=== PATIENT | female | born 1955 | race Caucasian/White ===

== ENCOUNTER 2022-05-12 21:33 | Outpatient (CLI) | payer MEDICARE, BC, SELFPAY | END 2022-05-12 21:34 | disposition home or self-care (01) | LOC: AMB 06-02 14:52 | PROVIDERS: PCP Family Medicine; Visit Provider Emergency Medicine | DX: R53.1 Weakness (principal) | CPT/HCPCS: A0998 ==

== ENCOUNTER 2022-08-26 08:39 | Outpatient (CLI) | payer MEDICARE, BC, SELFPAY | END 2022-08-26 08:40 | disposition home or self-care (01) | LOC: AMB 09-25 14:05 | PROVIDERS: PCP Family Medicine; Visit Provider Family Medicine | DX: R53.1 Weakness (principal) | CPT/HCPCS: A0998 ==

== ENCOUNTER 2022-08-26 13:32 | Outpatient (CLI) | payer MEDICARE, BC, SELFPAY ==
--- NOTE | 2022-08-26 14:00 | CRLHL7_ITS ---
For Patients: As a result of the Century Cures Act, medical imaging exams and procedure reports are released immediately into your electronic medical record. You may view this report before your referring provider. If you have questions, please contact your health care provider. Indication: Hypothyroidism. History of retinal detachment. Technique: CT of the orbits was performed without intravenous contrast. Comparison: None available. Findings: Bilateral scleral buckle. Globes are without evidence of rupture. Thinning of the ocular lenses. The extraocular muscles are symmetric in size without evidence for enlargement. No exophthalmos. Retrobulbar fat is preserved. The orbital garcia appear intact without fracture. Mild paranasal sinus mucosal disease. Trace left mastoid effusion. Impression: 1. Bilateral scleral buckle. 2. Extraocular muscles are symmetric in size without enlargement. 3. Mild paranasal sinus mucosal disease. Please note that all CT scans at this facility use dose modulation, iterative reconstruction, and/or weight-based dosing when appropriate to reduce radiation dose to as low as reasonably achievable. Dictated by Walker Robertson MD @ 08/27/2022 12:34:56 PM (Electronically Signed)
== END 2022-08-26 13:33 | disposition home or self-care (01) ==
LOC: CT 13:35
PROVIDERS: PCP Family Medicine
DX: E03.9 Hypothyroidism, unspecified (principal); H15.89 Other disorders of sclera
CPT/HCPCS: 70480

== ENCOUNTER 2022-11-17 10:12 | Outpatient (CLI) | payer MEDICARE, BC, SELFPAY | END 2022-11-17 10:13 | disposition home or self-care (01) | LOC: AMB 11-18 04:48 | PROVIDERS: PCP Family Medicine; Visit Provider Family Medicine | DX: R41.82 Altered mental status, unspecified (principal) | CPT/HCPCS: A0425; A0427 ==

== ENCOUNTER 2022-11-17 11:17 | Emergency (ER) | payer MEDICARE, BC, SELFPAY ==
[2022-11-17 11:20] VITALS: BP 131/81; PULSE 84; RESP 18; TEMP 36.5; O2SAT 95; BMI 26.6
[2022-11-17 11:29] VITALS: PULSE 68
--- NOTE | 2022-11-17 11:41 | CRLHL7_ITS ---
For Patients: As a result of the Cures Act, medical imaging exams and procedure reports are released immediately into your electronic medical record. You may view this report before your referring provider. If you have questions, please contact your health care provider. INDICATION: Fall. COMPARISON: MRI brain 12/29/2019. TECHNIQUE: CT of the head without IV contrast. Coronal and sagittal reconstructions. FINDINGS: No intracranial hemorrhage, mass effect, or evidence of acute infarct. No midline shift. No abnormal extra-axial fluid collections. Mild generalized cerebral and cerebellar volume loss. Normal caliber ventricular system. Orbits and extraocular muscles are symmetric. Bilateral scleral banding. Trace mucosal thickening in the right maxillary sinus. The visualized paranasal sinuses and mastoid air cells are otherwise clear. No acute fracture identified. Soft tissues are unremarkable. IMPRESSION: No acute intracranial findings. Please note that all CT scans at this facility use dose modulation, iterative reconstruction, and/or weight-based dosing when appropriate to reduce radiation dose to as low as reasonably achievable. Dictated by Hayde Grijalva MD @ 11/17/2022 12:38:35 PM (Electronically Signed)
--- NOTE | 2022-11-17 11:41 | ED.GENADULT ---
HPI - General Adult General Chief complaint: Neuro Symptoms/Altered Deficit Stated complaint: Fall w Altered Time Seen by Provider: 11/17/22 11:29 History of Present Illness HPI narrative: This 67-year-old female was walking her dog outside and tripped and fell. A electrical maintenance engineer saw her and helped her to her feet. There was a report that she seemed to be leaning to the left when she was ambulating. There was also concerned that her voice seemed different. She arrived here by ambulance and has no complaints. She does not complain of any pain. She states that she did not injure herself. She did not hit her head or have loss of consciousness. She is not taking any blood thinners. Related Data Home Medications Medication Instructions Recorded Confirmed zolpidem 12.5 mg tablet,extended mg PO 11/17/22 release,multiphase Allergies Allergy/AdvReac Type Severity Reaction Status Date / Time morphine Allergy Verified 11/17/22 11:26 Penicillins Allergy Verified 11/17/22 11:26 Sulfa (Sulfonamide Allergy Verified 11/17/22 11:26 Antibiotics) Review of Systems Status of ROS: Reports: 10 or more systems reviewed and unremarkable except as noted in History and below Narrative: Constitutional: No fevers, no weight gain or loss. Eyes: No discharge. No vision changes. HENT: No congestion, no sore throat, no ear pain. Cardiovascular: No chest pain, no palpitations. Respiratory: No shortness of breath, no wheezes, no cough. Gastrointestinal: No abdominal pain, no vomiting, no diarrhea. Genitourinary: No dysuria, no hematuria. Musculoskeletal: Normal range of motion. Skin: No rashes, no pruritis. Neurological: No dizziness, weakness, sensory change, speech change. Endo/Heme/Allergies: No bruising or bleeding. No polydipsia. Pysch: no suicidality, no anxiety, no insomnia. All other systems reviewed and are negative. PFSH PFS Social History Smoking Status: Never smoker Do you use any of these nicotine containing products: None How often do you have a drink containing alcohol: never How often do you have six or more drinks on one occasion: Never AUDIT-C Alcohol total score: 0 Non-prescribed substance use: denies use Exam Narrative: Exam Narrative: Constitutional: Well-developed, well-nourished, no acute distress. HEENT: Normocephalic, atraumatic. Neck: Normal range of motion. Nontender. Supple. Heart: Regular. No murmurs. Normal rate. Intact distal pulses. Lungs: Clear to auscultation. No chest discomfort. No wheezes, rhonchi, or rales. Abdomen: Normal bowel sounds. Nontender. No rebound tenderness. Genitalia: Deferred. Back: No midline tenderness. Normal range of motion. Extremities: Normal range of motion. No injury. Skin: Intact. No rash. Warm. No erythema or pallor. Neurologic: No altered sensation. No weakness. Alert and oriented. Tongue is midline. No facial asymmetry. [id number] is normal. No pronator drift. Software Developer strength is equal bilaterally. Heel to finch is normal. Psychiatric: No suicidality. No anxiety or depression. No insomnia. Nursing notes and vitals signs are reviewed. Const: Vital Signs, click to edit/add: Vital Signs - 24 hr 11/17/22 11:20 11/17/22 11:29 Temperature 97.7 F Pulse Rate [Pulse Oximeter] 68 Pulse Rate [Right Pulse Oximeter] 84 Respiratory Rate 18 Blood Pressure [Ri ght Upper Arm] 131/81 Pulse Oximetry 95 Oxygen Delivery Me thod Room Air Course Vital Signs Vital signs: Initial Vital Signs Temperature 97.7 F 11/17/22 11:20 Temperature Source Temporal Artery Scan 11/17/22 11:20 Pulse Rate 84 11/17/22 11:20 Respiratory Rate 18 11/17/22 11:20 Blood Pressure 131/81 11/17/22 11:20 Blood Pressure Mean 97 11/17/22 11:20 Blood Pressure Position Sitting 11/17/22 11:20 Pulse Oximetry 95 11/17/22 11:20 Oxygen Delivery Method 11/17/22 11:20 Vital Signs Temperature 97.7 F 11/17/22 11:20 Pulse Rate 84 11/17/22 11:20 Respiratory Rate 18 11/17/22 11:20 Blood Pressure 131/81 11/17/22 11:20 Pulse Oximetry 95 11/17/22 11:20 Oxygen Delivery Method 11/17/22 11:20 Temperature 97.7 F 11/17/22 11:20 Pulse Rate 68 11/17/22 11:29 Respiratory Rate 18 11/17/22 11:20 Blood Pressure 131/81 11/17/22 11:20 Pulse Oximetry 95 11/17/22 11:20 Oxygen Delivery Method 11/17/22 11:20 Medical Decision Making MDM Narrative Medical decision making narrative: This patient comes in for evaluation of a fall that occurred just prior to arrival. She is not complaining of any symptoms. She has a normal neurologic exam. A CT scan of the head is ordered out of an abundance of caution. This returns with no acute findings. She is okay to be discharged home to continue current plans. At the time of discharge the patient appears safe for outpatient management. The treatment plan is reviewed along with written and verbal return precautions. Reasons to return and the importance of close followup were also reviewed. Imaging Data CT scan - head: Radiologist's impression: FINDINGS: No intracranial hemorrhage, mass effect, or evidence of acute infarct. No midline shift. No abnormal extra-axial fluid collections. Mild generalized cerebral and cerebellar volume loss. Normal caliber ventricular system. Orbits and extraocular muscles are symmetric. Bilateral scleral banding. Trace mucosal thickening in the right maxillary sinus. The visualized paranasal sinuses and mastoid air cells are otherwise clear. No acute fracture identified. Soft tissues are unremarkable. IMPRESSION: No acute intracranial findings. Discharge Plan Discharge Clinical Impression: Fall Patient Disposition: Home, Self-Care Condition: Stable Additional Instructions: Continue current plans. Follow up with MD or return if worsening symptoms happen. Prescriptions: No Action zolpidem 12.5 mg tablet,ext release multiphase PO Label Comments: TAKE 1 TABLET (12.5 MG) BY MOUTH AT BEDTIME NEEDED FOR SLEEP. TEMPORARY SUPPLY UNTIL MAIL ORDER ARRIVES. Follow Up/Referrals: Apryl Fink MD [Primary Care Provider] - Stand Alone Forms: [employer] Info Instructions
[2022-11-17 13:13] VITALS: BP 137/81
[2022-11-17 13:47] VITALS: BP 129/79
== END 2022-11-17 13:49 | disposition home or self-care (01) ==
PROVIDERS: Emergency Provider Emergency Medicine Emergency Medical Services; PCP Family Medicine
DX: R41.82 Altered mental status, unspecified (principal); W01.0XXA Fall on same level from slipping, tripping and stumbling without subsequent striking against object, initial encounter
CPT/HCPCS: 70450; 99283; 99284

== ENCOUNTER 2023-09-14 11:53 | Outpatient (CLI) | payer MEDICARE, BC, SELFPAY | END 2023-09-14 11:54 | disposition home or self-care (01) | LOC: AMB 09-15 12:43 | PROVIDERS: PCP Family Medicine; Visit Provider Family Medicine | DX: R53.1 Weakness (principal) | CPT/HCPCS: A0998 ==

== ENCOUNTER 2023-11-15 14:59 | Outpatient (CLI) | payer MEDICARE, BC, SELFPAY ==
--- OUTSIDE RECORDS SUMMARY | 2023-11-17 14:00 | XMS_ITS | Encounter Summary ---
Author Name Unknown Organization [facility] Address [address] [place] [id number] Care Team Providers Care Hand Cutter Name Role Phone Apryl Fink MD Primary Care Provider Encounter Details Date Type Department Care Team Description 11/16/2012 Orders Only [facility] [address] [place] [address] Mariajose Chavira MD [address] [place] [id number] Social History Tobacco Use Types Packs/Day Years Used Date Smoking Tobacco: Never Assessed Sex and Gender Information Value Date Recorded Sex Assigned at Not on file Gender Identity Not on file Sexual Orientation Not on file documented as of this encounter Plan of Treatment Not on file documented as of this encounter Visit Diagnoses Not on filedocumented in this encounter Care Teams Hand Cutter Relationship Specialty Start Date End Date Apryl Fink MD [address] [facility] [place] [id number] PCP - General 02/12/16 documented as of this encounter
--- OUTSIDE RECORDS SUMMARY | 2023-11-17 14:00 | XMS_ITS | Clinical Summary ---
Author Name Unknown Organization [facility] Address [address] [place] [address] Care Team Providers Care Still Tender Name Role Phone Apryl Fink MD Primary Care Provider Source Comments You are receiving this document as you are listed as the primary care provider,follow-up provider, or the patient has been referred to you for consultation.This is in compliance with the Medicare and[facility] EHR Incentive Program,which states Providers who transition their patient to another setting of careor provider of care or refers their patient to another provider of care shouldprovide summary care record for each transition of care or referral. Trly Uniq Allergies Active Allergy Reactions Criticality Noted Date Comments Cetirizine Fever High 05/15/2020 Hydrochlorothiazide 08/18/2004 PN: LW Reaction: DIZZINESS Morphine Rash 02/21/2015 doesn't work, I'm part of 10% of the population that it doesn't work on Oxycodone does work, but patient doesn't like how they make her feel. Omeprazole Anaphylaxis High 02/12/2016 Other Cough,Chest Pain 01/02/2019 Tirosint Penicillins 11/19/2003 PN: LW Reaction: Rash, Generalized Sulfa Antibiotics Anaphylaxis High 07/17/2013 Sulfites Anaphylaxis High 02/12/2016 Medications Medication Sig Dispensed Refills Start Date End Date Status triamcinolone acetonide (AKA KENALOG) 0.1 % cream Apply 1 Application topically 2 times daily. 80 g 3 07/06/2011 Active pravastatin (PRAVACHOL) 20 MG tablet Take 1 Tablet (20 mg) by mouth daily. 0 02/16/2018 Active meclizine (ANTIVERT) 25 MG tablet Take 1 Tablet (25 mg) by mouth daily as needed. 0 02/16/2018 Active aspirin 81 MG tablet Take 1 Tablet (81 mg) by mouth daily. 0 Active fexofenadine (CHANDAN) 180 MG tablet Take 1 Tablet (180 mg) by mouth daily as needed. 0 Active busPIRone (BUSPAR) 30 MG tabletIndications: Generalized anxiety disorder (HRC) Take 1 Tablet (30 mg) by mouth two times a day. 180 Tablet 3 08/06/2023 08/05/2024 Active zolpidem tartrate (AMBIEN CR) 12.5 MG controlled release tabletIndications: Insomnia, unspecified type Take 1 Tablet (12.5 mg) by mouth at bedtime as needed. for sleep 90 Tablet 1 08/06/2023 Active venlafaxine (EFFEXORXR) 150 MG 24 hour release capsuleIndications :Generalized anxiety disorder (HRC),Major depressive disorder, recurrent episode, in partial remission (HRC) Take 1 Capsule (150 mg) by mouth two times a day. 180 Capsule 3 08/06/2023 Active lamoTRIgine (LAMICTAL) 200 MG tabletIndications: Major depressive disorder, recurrent episode, in partial remission (HRC) Take 2 Tablets (400 mg) by mouth daily at bedtime. 180 Tablet 3 08/06/2023 Active Active Problems Problem Noted Date Diagnosed Date Primary hypothyroidism 12/15/2018 Hyponatremia 12/15/2018 Esophageal stricture 12/15/2018 Spastic quadriparesis, congenital 11/16/2013 Kidney disease, chronic, stage III (GFR 30-59 ml /min) 11/16/2013 Major depressive disorder, r ecurrent episode, in partial remission 06/11/2011 Overview: Major depressive disorder, recurrent episode, in partial or unspecified remission Generalized anxiety disorder 06/11/2011 Essential hypertension 08/17/2007 Overview: Hypertension Hyperlipidemia 08/17/2007 Resolved Problems Problem Noted Date Diagnosed Date Resolved Date Distal radius fracture 11/17/201211/16 Cyst of ovary 09/02/2004 01/16/2006 Overview: LW Onset: [id number] ; Cyst Ovary Immunizations Name Administration Dates Next Due Flu Vac Preserv Free (3+yrs) 08/17/2007 Family History Medical History Relation Name Comments High Blood Pressure Father Relation Name Status Comments Father Social History Tobacco Use Types Packs/Day Years Used Date Smoking Tobacco: Never Smokeless Tobacco: Never Alcohol Use Standard Drinks/Week Comments No 0 (1 standard drink = 0.6 oz pur e alcohol) PHQ-2 Answer Date Recorded PHQ-2 Score 4 08/06/2023 Sex and Gender Information Value Date Recorded Sex Assigned at Not on file Gender Identity Not on file Sexual Orientation Not on file Last Filed Vital Signs Vital Sign Reading Time Taken Comments Blood Pressure 148/103 08/17/2022 11:59 AM CDT Pulse 91 08/17/2022 11:59 AM CDT Temperature 36.7 ??C (98.1 ??F) 11/16/2012 1 1:54 AM CULL GRADER Respiratory Rate 16 11/16/2012 2:32 PM CULL GRADER Oxygen Saturation 94% 11/16/2012 2:32 PM CULL GRADER Inhaled Oxygen Concentration - - Weight 79.7 kg (175 lb 12.8 oz) 022 11:59 AM CDT Height 165.1 cm (5' 5) 08/17/2022 11:5 9 AM CDT Body Mass Index 29.25 08/17/2022 11:59 AM CDT Plan of Treatment Health Maintenance Due Date Last Done Comments Colon Cancer Screening Plan Due 1955 Medicare Annual Wellness Visit 1955 Mammogram 1955 COVID-19 Vaccine (#1) 1955 Zoster/Shingles (1 of 2) 01/28/2006 Cholesterol 07/06/2016 07/06/2011, 07/20, 11/19/2003 Dexa 01/28/2021 Pneumococcal 65+ Yrs (1 - PCV) 01/28/2021 Influenza (#1) 2023 08/06/2021, 06/18, 07/26/2019, Additional history exists DTaP/Tdap/Td (3 - Tdap) 10/26/2029 10/26/2019, 10/08 Hep C Screening (Preventive Services) Completed 08/18/2004 HepA Aged Out No longer eligi ble based on patient's age to complete this topic HepB Aged Out No longer eligi ble based on patient's age to complete this topic Hib Aged Out No longer eligi ble based on patient's age to complete this topic IPV ([place]) Aged Out No longer eligi ble based on patient's age to complete this topic MCV4 Aged Out No longer eligi ble based on patient's age to complete this topic Care Teams Still Tender Relationship Specialty Start Date End Date Apryl Fink MD [address] [place] [id number] PCP - General 02/12/16
--- OUTSIDE RECORDS SUMMARY | 2023-11-17 14:00 | XMS_ITS | Clinical Summary ---
Author Name Unknown Organization [facility] Address [place], [place] [address] Care Team Providers Care Laborer Cutting Tool Name Role Phone Apryl Fink MD Primary Care Provider + Allergies Active Allergy Reactions Criticality Noted Date Comments Cetirizine Fever High 05/15/2020 Rosuvastatin Throat Swelling/Closing High 03/01/2017 Hydromorphone (Bulk) *Unknown 03/01/2017 Doesn't work Egg Derived Vomiting 02/22/2019 Unable to have Flu shot Hydrochlorothiazide Dizziness High 05/31/2009 Hyoscyamine Hypotension High 07/04/2015 Morphine *Unknown 02/21/2015 doesn't work, I'm part of 10% of the population that it doesn't work on Oxycodone does work, but patient doesn't like how they make her feel. Omeprazole Tongue Swelling High 09/16/2015 Unlisted Allergen (Include Detail In Comments) Stomach Upset 01/02/2019 ALL GRAINS Penicillins Rash Low 05/31/2009 Pork Derived (Porcine) Other - Describe In Comment Field 02/22/2019 uknown reaction, had positive allergy test Simvastatin GI Upset Low 05/15/2020 Sulfa (Sulfonamide Antibiotics) Other - Describe In Comment Field 02/21/2015 Low blood pressure, difficulty standing Levothyroxine Chest Pain,Cough 02/22/2019 Tomato (Solanum Lycopersicum) Nausea And Vomiting,Headache High 02/22/2019 Stomach ache Ondansetron Hcl Anaphylaxis High 02/08/2019 Throat closing, difficulty breathing Medications Medication Sig Dispensed Refills Start Date End Date Status lamotrigine (LAMICTAL) 200 mg tablet Take 2 tablets by mouth at bedtime. 0 07/24/2010 Active meclizine (ANTIVERT) 25 mg tablet Take 1 tablet by mouth every 8 hours if needed. 0 11/08/2018 Active zolpidem CR (AMBIEN CR) 6.25 mg Extended-Release tablet Take 6.25 mg by mouth at bedtime. 0 12/15/2018 Active aspirin (ECOTRIN) 81 mg enteric coated tablet Take 81 mg by mouth once daily with lunch. 0 Active Cholecalciferol, Vitamin D3, 2,000 unit tablet Take 2,000 Units by mouth once daily in the afternoon. 0 Active venlafaxine (EFFEXOR XR) 150 mg Extended-Release capsule Take 300 mg by mouth once daily. 0 02/14/2019 Active artificial tears, peg 400-propylene glycol, (SYSTANE) 0.4-0.3 % drop ophthalmic Place 1 Drop into both eyes 2 times daily if needed for Dry Eyes. 0 Active pravastatin (PRAVACHOL) 20 mg tablet Daily At 2:15PM 0 Active acetaminophen (TYLENOL EXTRA STRGTH) 500 mg tablet Take 1,000 mg by mouth every 6 hours if needed. Max acetaminophen dose: 4000mg in 24 hrs. 0 Active busPIRone (BUSPAR) 30 mg tablet Take 30 mg by mouth. 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 CKD (chronic kidney disease) stage 3, GFR 30-59 ml/min 10/31/2013 HTN (hypertension) 10/31/2013 Major depressive disorder, r ecurrent episode, in partial remission 06/11/2011 Overview: Overview: Major depressive disorder, recurrent episode, in partial or unspecified remission Retinal detachment 09/26/2010 Overview: Right eye, surgery 09/24/10, Dr Andrea Schreiber Has history of left retinal detachment 05/11/[address] Schreiber Arthritis Overview: Psoriatic Arthritis, visit with Dr [place] on 10/22/2009, 01/15/10,02/26/10 Hiatal hernia Resolved Problems Problem Noted Date Diagnosed Date Resolved Date Hypoactive thyroid 12/29/2018 9 Detached retina 12/29/2018 12/29/2018 Mixed anxiety depressive disorder 12/29/2018 12/29/2018 Spastic quadriparesis 10/31/20132018 Generalized anxiety disorder 06/11/2011 12/29/2018 Preventive Health Maintainance 10/08/2009 10/31/2013 Overview: Pap smear - had hystectomy Mammogram - ordered 10/08/09 BDS - ordered 10/08/09 Colonoscopy declines for now Pure hypercholesterolemia Depressive disorder, not elsewhere classified 12/29/2018 Unspecified essential hypertension 10/31/2013 Encounters Date Type Department Care Team Description 09/30/2023 1:00 PM CHIEF CATALYST OPERATOR Office Visit [facility] [address] [phone] Rosalva Cohen MD Consult (Hiatal Hernia Consult) 09/30/2023 11:31 AM CHIEF CATALYST OPERATOR - 09/30/2023 11:59 PM CHIEF CATALYST OPERATOR Hospital Encounter [facility] [address] [place] [address] Rosalva Cohen MD Status post hernia repair 09/30/2023 Telephone [facility] [address] [phone] Rosalva Cohen MD RDC Care Coordination 09/30/2023 Travel 08/26/2023 Telephone [facility] [address] [place] [address] Rosalva Cohen MD Reflux (RDC Pre Visit) from Last 3 Months Immunizations Name Administration Dates Next Due Influenza A (H1N1), Inactivated (Age >=3 Years) 10/08/2009 Influenza, IIV3 (Age >=3 years) 10/08/2009 Influenza, IIV4 07/04/2015 Influenza, IIV4 (Age 6-35 Mos) 07/02/2021 Tdap 10/08/2009 Family History Medical History Relation Name Comments Throat cancer Brother Cancer Father pancreatic Diabetes Father Cancer-breast Sister A one side Relation Name Status Comments Brother Alive Father (Age 63) pancreatic cancer Mother Alive Sister A Alive Social History Tobacco Use Types Packs/Day Years Used Date Smoking Tobacco: Never Smokeless Tobacco: Never Tobacco Cessation:Counseling Given: Yes Alcohol Use Standard Drinks/Week Comments No 0 (1 standard drink = 0.6 oz pur e alcohol) 1-2 per year Sex and Gender Information Value Date Recorded Sex Assigned at Not on file Gender Identity Not on file Sexual Orientation Not on file Obstetrics History Para Term AB IAB SAB Ectopic Multiple Livin g Live Births 0 0 0 0 0 0 0 0 0 0 Last Filed Vital Signs Vital Sign Reading Time Taken Comments Blood Pressure 120/70 09/30/2023 1:05 PM CHIEF CATALYST OPERATOR Pulse 87 09/30/2023 1:05 PM CHIEF CATALYST OPERATOR Temperature 36.5 ??C (97.7 ??F) 07/25/2021 6:49 AM CD T Respiratory Rate 16 07/25/2021 6:49 AM CDT Oxygen Saturation 98% 09/30/2023 1:05 PM CHIEF CATALYST OPERATOR Inhaled Oxygen Concentration - - Weight 83.9 kg (185 lb) 09/30/2023 1:05 PM CHIEF CATALYST OPERATOR Height 165.1 cm (5' 5) 09/30/2023 1:05 PM CHIEF CATALYST OPERATOR Body Mass Index 30.79 09/30/2023 1:05 PM CHIEF CATALYST OPERATOR Plan of Treatment Health Maintenance Due Date Last Done Comments Depression screening for age 12+ 1968 Hepatitis C screening for age 18-79 01/28/1974 Colonoscopy through age 75 01/28/2001 Mammogram for age 45-75 01/28/2001 Zoster (shingles) series for age 50+ (1 of 2) 01/28/2006 Lipids for age 45-75 01/16/2016 01/15/2011, 10/07/20 09 Tetanus booster 10/08/2019 10/08/2009 DEXA/DXA scan for age 65+ 01/28/2021 Medicare Wellness for age 65+ 01/28/2021 Pneumococcal series for age 65+ (1 of 1 - PCV) 01/28/2021 COVID-19 vaccine series (3 - 2022- season) 2023 09/18/2021, 11/13/2020 Influenza for age 65+ 06/18/2023 07/04/2015 , 10/08/2009, 10/08/2009 BMI (ht and wt on same day) for age 18+ 09/30/2024 09/30/2023, 02/22/2019, 02/08/2019 Tdap Completed 10/08/2009 Medical Devices Implanted Type Area Seat Nailer Device Identifier Shelf Expiration Date Model / Serial / Lot Sleeve Silcn [id number] - [id number] Implanted:Qty: 1 on 09/24/2010 at [facility] Right: Eye [employer] [id number]# / / [id number] Strip Silcn 1.25x4.0x125 [id number] - [id number] Implanted:Qty: 1 on 09/24/2010 at [facility] Right: Eye [employer] [id number]# / / [id number] - Chasity [id number] Lens Iol - 1 - Lens Iol 21 Tecnis Implanted:Qty: 1 on 07/08/2011 at [facility] Right: Eye [employer] [id number]# / [id number] / Procedures Procedure Name Priority Date/Time Associated Diagnosis Comments XR ESOPHAGUS MADAY 09/30/2023 12:34 PM CHIEF CATALYST OPERATOR Status post hernia repair from Last 3 Months Results * XR ESOPHAGUS (09/30/2023 12:34 PM CHIEF CATALYST OPERATOR) Anatomical Region Laterality Modality Esophagus Digital Radiogra phy 09/30/2023 2:55 PM CHIEF CATALYST OPERATOR Narrative 09/30/2023 2:55 PM CHIEF CATALYST OPERATOR For Patients: ??As a result of the Cures Act, medical imaging exams and procedure reports are released immediately into your electronic medical record. ??You may view this report before your referring provider. ??If you have questions, please contact your health care provider. INDICATION: History of hernia repair. Reflux type symptoms. TECHNIQUE: Single contrast esophagram. FINDINGS: The patient initially ingested a 13 mm diameter radiodense tablet. This passed to the distal esophagus, and lodged within a small fixed hiatal hernia. Reflux was elicited with the patient in the recumbent position. Toward the end of the examination the radiodense tablet passed in a retrograde fashion within the esophagus. The patient vomited some of the barium toward the end of the examination. Calcified hilar/mediastinal lymph nodes compatible with granulomatous process. 1 minute 6 seconds fluoroscopy time utilized. IMPRESSION : 1. Small fixed esophageal hiatal hernia. 2. Reflux in the recumbent position. 3. Vomiting and retrograde passage of barium and the barium tablet toward the end of the examination. Dictated by Miah Alarcon MD @ Sep 30 2023 ??2:55PM (Electronically Signed) ?? Procedure Note Miah Alarcon MD - 09/30/2023 For Patients: As a result of the Cures Act, medical imagingexams and procedure reports are released immediately into your electronicmedical record. You may view this report before your referring provider.If you have questions, please contact your health care provider. INDICATION: History of hernia repair. Reflux type symptoms. TECHNIQUE: Single contrast esophagram. FINDINGS: The patient initially ingested a 13 mm diameter radiodense tablet. Thispassed to the distal esophagus, and lodged within a small fixed hiatalhernia. Reflux was elicited with the patient in the recumbent position.Toward the end of the examination the radiodense tablet passed in aretrograde fashion within the esophagus. The patient vomited some of thebarium toward the end of the examination. Calcified hilar/mediastinallymph nodes compatible with granulomatous process. 1 minute 6 seconds fluoroscopy time utilized. IMPRESSION : 1. Small fixed esophageal hiatal hernia. 2. Reflux in the recumbent position. 3. Vomiting and retrograde passage of barium and the barium tablet towardthe end of the examination. Dictated by Miah Alarcon MD @ Sep 30 2023 2:55PM (Electronically Signed) Rosalva Cohen MD FLUOROSCOPY from Last 3 Months Advance Directives Latest Code Status on File Code Status Date Activated Date Inactivated Comments Full Code 07/25/2021 6:28 AM 07/25/2021 10:08 PM Question Answer Comments Code Status Discussion: Discussed Code Status History Code Status Date Activated Date Inactivated Comments Full Code 02/28/2019 11:10 AM 03/02/2019 3:26 PM Full Code 12/29/2018 10:35 PM 12/30/2018 6:19 PM Full Code 07/08/2011 8:11 AM 07/08/2011 1:55 PM Full Code 05/27/2011 6:31 AM 05/27/2011 10:47 AM Care Teams Laborer Cutting Tool Relationship Specialty Start Date End Date Apryl Fink MD [address] [facility] [address] PCP - General Family Practice 03/01/17
== END 2023-11-15 15:00 | disposition home or self-care (01) ==
LOC: NFLDREF 11-17 13:57
PROVIDERS: PCP Family Medicine; Referring Provider Family Medicine; Visit Provider Internal Medicine Nephrology
DX: R53.83 Other fatigue (principal); G40.909 Epilepsy, unspecified, not intractable, without status epilepticus; N18.31 Chronic kidney disease, stage 3a
CPT/HCPCS: 80069; 82043; 82570; 82728; 83540; 83550; 84439; 84443; 84550; 87086

== ENCOUNTER 2023-12-02 15:13 | Outpatient (CLI) | payer MEDICARE, BC, SELFPAY ==
--- OUTSIDE RECORDS SUMMARY | 2023-12-02 15:16 | XMS_ITS | Clinical Summary ---
Author Name Unknown Organization [facility] Address [address] [place] [address] Care Team Providers Care Willow Specialists Name Role Phone Apryl Fink MD Primary Care Provider Source Comments You are receiving this document as you are listed as the primary care provider,follow-up provider, or the patient has been referred to you for consultation.This is in compliance with the Medicare and[facility] Cent[facility] EHR Incentive Program,which states Providers who transition their patient to another setting of careor provider of care or refers their patient to another provider of care shouldprovide summary care record for each transition of care or referral. Adeze Allergies Active Allergy Reactions Criticality Noted Date [...] 1 Tablet (20 mg) by mouth daily. 02/16/2018 Active meclizine (ANTIVERT) 25 MG tablet Take 1 Tablet (25 mg) by mouth daily as needed. 02/16/2018 Active aspirin 81 MG tablet Take 1 Tablet (81 mg) by mouth daily. Active fexofenadine (CHANDAN) 180 MG tablet Take 1 Tablet (180 mg) by mouth daily as needed. Active busPIRone (BUSPAR) 30 MG tabletIndications: Generalized [...] of ovary 09/02/2004 01/16/2006 Overview: LW Onset: [id number] ; Cyst Ovary Immunizations Name Administration Dates [...] ??C (98.1 ??F) 11/16/2012 1 1:54 AM CONVERTER OPERATOR Respiratory Rate 16 11/16/2012 2:32 PM CONVERTER OPERATOR Oxygen Saturation 94% 11/16/2012 2:32 PM CONVERTER OPERATOR Inhaled Oxygen Concentration - - Weight 79.7 kg (175 lb 12.8 oz) 022 11:59 AM CDT Height 165.1 cm (5' 5) 08/17/2022 11:5 9 AM CDT Body Mass Index 29.25 08/17/2022 11:59 AM CDT Plan of Treatment Health Maintenance Due Date Last Done Comments Colon Cancer Screening Plan Due 1955 Medicare Annual Wellness Visit 1955 Mammogram 1955 Zoster/Shingles (1 of 2) 01/28/2006 Cholesterol 07/06/2016 07/06/2011, 07/20, 11/19/2003 Dexa 01/28/2021 Pneumococcal 65+ Yrs (1 - PCV) 01/28/2021 COVID-19 Vaccine (4 - 2022- season) 2023 09/18/2021, 12/11/2020, 11/13/2020 Influenza (#1) 2023 08/06/2021, 06/18, 07/26/2019, Additional [...] on patient's age to complete this topic Procedures Procedure Name Priority Date/Time Associated Diagnosis Comments CHOLESTEROL, TOTAL AND HDL Routine 07/06/2011 1:38 PM CDT Other and unspecified hyperlipidemia (HRC) HEPATITIS C ANTIBODY, WITH REFLEX Routine 08/18/2004 9:55 AM CONVERTER OPERATOR from Last 3 Months or Most Recently Relevant to Health Maintenance Results * (ABNORMAL) Cholesterol, Total and HDL (07/06/2011 1:38 PM CDT) Cholesterol 291(H) 0 - 200 mg/dL HP CONVERSION HDL Cholesterol 118 >39 mg/dL HP CONVERSION Cholesterol/HDL Ratio Screen 2.5 HP CONVERSION 07/06/2011 1:38 PM CDT 07/06/2011 6:15 PM CDT Chas Ivy MD LAB_1 HP CONVERSION * Hepatitis C Antibody, with Reflex (08/18/2004 9:55 AM CONVERTER OPERATOR) Hepatitis C Antibody Non Reac Non Reac HP CONVERSION 08/18/2004 9:55 AM CONVERTER OPERATOR Drew Bill MD LAB_1 HP CONVERSION from Last 3 Months or Most Recently Relevant to Health Maintenance Care Teams Willow Specialists Relationship Specialty Start Date End Date Apryl Fink MD [address] [place] [address] PCP - General 02/12/16
--- OUTSIDE RECORDS SUMMARY | 2023-12-02 15:16 | XMS_ITS | Clinical Summary ---
Author Name Unknown Organization [facility] [facility] Address [place], [place] [address] Care Team Providers Care Plant Accountant Name Role Phone Apryl Fink MD Primary [...] Department Care Team Description 09/30/2023 1:00 PM RESEARCH CHEF Office Visit [facility] [address] [phone] Rosalva Cohen MD Consult (Hiatal Hernia Consult) 09/30/2023 11:31 AM RESEARCH CHEF - 09/30/2023 11:59 PM RESEARCH CHEF Hospital Encounter [facility] [address] [place] [address] Rosalva Cohen MD Status post hernia repair 09/30/2023 Telephone [facility] [address] [phone] Rosalva Cohen MD RDC Care Coordination 09/30/2023 Travel from Last 3 Months Immunizations Name Administration [...] Comments Blood Pressure 120/70 09/30/2023 1:05 PM RESEARCH CHEF Pulse 87 09/30/2023 1:05 PM RESEARCH CHEF Temperature 36.5 ??C (97.7 ??F) 07/25/2021 6:49 AM CD T Respiratory Rate 16 07/25/2021 6:49 AM CDT Oxygen Saturation 98% 09/30/2023 1:05 PM RESEARCH CHEF Inhaled Oxygen Concentration - - Weight 83.9 kg (185 lb) 09/30/2023 1:05 PM RESEARCH CHEF Height 165.1 cm (5' 5) 09/30/2023 1:05 PM RESEARCH CHEF Body Mass Index 30.79 09/30/2023 1:05 PM RESEARCH CHEF Plan of Treatment Health Maintenance Due Date [...] PCV) 01/28/2021 COVID-19 vaccine series (3 - 2023-24 season) 2023 09/18/2021, 11/13/2020 Influenza for age 65+ 06/18/2023 07/04/2015 , 10/08/2009, 10/08/2009 BMI (ht and wt on same day) for age 18+ 09/30/2024 09/30/2023, 02/22/2019, 02/08/2019 Tdap Completed 10/08/2009 Medical Devices Implanted Type Area Excavating Contractor Device Identifier Shelf Expiration Date Model / Serial / Lot Sleeve Silcn [id number] - [id number] Implanted:Qty: 1 on 09/24/2010 at [facility] Right: Eye [employer] [id number]# / / [id number] Strip Silcn 1.25x4.0x125 [id number] - [id number] Implanted:Qty: 1 on 09/24/2010 at [facility] Right: Eye [employer] [id number]# / / [id number] - Chasity [id number] Lens Iol - 1 - Lens Iol 21 Tecnis Implanted:Qty: 1 on 07/08/2011 at [facility] Right: Eye [employer] [id number]# / [id number] / Procedures Procedure Name Priority Date/Time Associated Diagnosis Comments XR ESOPHAGUS MADAY 09/30/2023 12:34 PM RESEARCH CHEF Status post hernia repair from Last 3 Months Results * XR ESOPHAGUS (09/30/2023 12:34 PM RESEARCH CHEF) Anatomical Region Laterality Modality Esophagus Digital Radiogra phy 09/30/2023 2:55 PM RESEARCH CHEF Narrative 09/30/2023 2:55 PM RESEARCH CHEF For Patients: ??As a result of the 21st Century Cures Act, medical imaging exams and procedure [...] 6:31 AM 05/27/2011 10:47 AM Care Teams Plant Accountant Relationship Specialty Start Date End Date Apryl Fink MD [address] [place] [address] PCP - General Family Practice 03/01/17
--- OUTSIDE RECORDS SUMMARY | 2023-12-02 15:16 | XMS_ITS | Encounter Summary ---
Author Name Unknown Organization [facility] Address [address] [place] [address] Care Team Providers Care Senior Editor Name Role Phone Apryl Fink MD Primary Care Provider Encounter Details Date Type Department Care Team (Late st Contact Info) Description 11/16/2012 Orders Only [facility] [address] [place] [address] Mariajose Chavira MD [address] [place] [address] Social History Tobacco Use Types Packs/Day Years Used Date Smoking Tobacco: Never Assessed Sex and Gender Information Value Date Recorded Sex Assigned at Not on file Gender Identity Not on file Sexual Orientation Not on file documented as of this encounter Plan of Treatment Not on file documented as of this encounter Visit Diagnoses Not on filedocumented in this encounter Care Teams Senior Editor Relationship Specialty Start Date End Date Apryl Fink MD [address] [facility] [place] [address] PCP - General 02/12/16 documented as of this encounter
== END 2023-12-02 15:14 | disposition home or self-care (01) ==
PROVIDERS: PCP Family Medicine; Visit Provider Family Medicine
DX: E78.5 Hyperlipidemia, unspecified (principal); E55.9 Vitamin D deficiency, unspecified
CPT/HCPCS: 80061; 82306

== ENCOUNTER 2024-02-10 07:45 | Outpatient (CLI) | payer MEDICARE, BC, SELFPAY ==
--- OUTSIDE RECORDS SUMMARY | 2024-02-21 15:35 | XMS_ITS | Encounter Summary ---
Author Name Unknown Organization [facility] Address [address] [place] [address] Care Team Providers Care Sock Lining Examiner Name Role Phone Apryl Fink MD Primary Care Provider Encounter Details Date Type Department Care Team (Late st Contact Info) Description 11/16/2012 Orders Only [facility] [address] [place] [address] Mariajose Chavira MD [address] [facility] [place] [address] Social History Tobacco Use Types Packs/Day Years Used Date Smoking Tobacco: Never Assessed Sex and Gender Information Value Date Recorded Sex Assigned at Not on file Gender Identity Not on file Sexual Orientation Not on file documented as of this encounter Plan of Treatment Not on file documented as of this encounter Visit Diagnoses Not on filedocumented in this encounter Care Teams Sock Lining Examiner Relationship Specialty Start Date End Date Apryl Fink MD [address] [facility] [place] [address] PCP - General 02/12/16 documented as of this encounter
--- OUTSIDE RECORDS SUMMARY | 2024-02-21 15:35 | XMS_ITS | Clinical Summary ---
Author Name Unknown Organization [facility] Address [place], [place] [address] Care Team Providers Care Manager Commercial Real Estate Name Role Phone Apryl Fink MD Primary [...] by mouth every 8 hours if needed. 11/08/2018 Active zolpidem CR (AMBIEN CR) 6.25 mg Extended-Release tablet Take 6.25 mg by mouth at bedtime. 12/15/2018 Active aspirin (ECOTRIN) 81 mg enteric coated tablet Take 81 mg by mouth once daily with lunch. Active Cholecalciferol, Vitamin D3, 2,000 unit tablet Take 2,000 Units by mouth once daily in the afternoon. Active venlafaxine (EFFEXOR XR) 150 mg Extended-Release capsule Take 300 mg by mouth once daily. 02/14/2019 Active artificial tears, peg 400-propylene glycol, (SYSTANE) 0.4-0.3 % drop ophthalmic Place 1 Drop into both eyes 2 times daily if needed for Dry Eyes. Active pravastatin (PRAVACHOL) 20 mg tablet Daily At 2:15PM Active acetaminophen (TYLENOL EXTRA STRGTH) 500 mg tablet Take 1,000 mg by mouth every 6 hours if needed. Max acetaminophen dose: 4000mg in 24 hrs. Active busPIRone (BUSPAR) 30 mg tablet Take 30 mg by mouth. 08/06/2023 08/05/2024 Ac tive Active Problems Problem [...] elsewhere classified 12/29/2018 Unspecified essential hypertension 10/31/2013 Immunizations Name Administration Dates Next Due Influenza [...] Comments Blood Pressure 120/70 09/30/2023 1:05 PM HAND MITER OPERATOR Pulse 87 09/30/2023 1:05 PM HAND MITER OPERATOR Temperature 36.5 ??C (97.7 ??F) 07/25/2021 6:49 AM CD T Respiratory Rate 16 07/25/2021 6:49 AM CDT Oxygen Saturation 98% 09/30/2023 1:05 PM HAND MITER OPERATOR Inhaled Oxygen Concentration - - Weight 83.9 kg (185 lb) 09/30/2023 1:05 PM HAND MITER OPERATOR Height 165.1 cm (5' 5) 09/30/2023 1:05 PM HAND MITER OPERATOR Body Mass Index 30.79 09/30/2023 1:05 PM HAND MITER OPERATOR Plan of Treatment Health Maintenance Due [...] PCV) 01/28/2021 COVID-19 vaccine series (3 - season) 2023 09/18/2021, 11/13/2020 Influenza for age 65+ 06/18/2024 07/04/2015 , 10/08/2009, 10/08/2009 BMI (ht and wt on same day) for age 18+ 09/30/2024 09/30/2023, 02/22/2019, 02/08/2019 Tdap Completed 10/08/2009 Medical Devices Implanted Type Area Dip Dyer Device Identifier Shelf Expiration Date Model / Serial / Lot Sleeve Silcn [id number] - [id number] Implanted:Qty: 1 on 09/24/2010 at [facility] Right: Eye [employer] [id number]# / / [id number] Strip Silcn 1.25x4.0x125 [id number] - [id number] Implanted:Qty: 1 on 09/24/2010 at [facility] Right: Eye [facility] [employer] Inc [id number]# / / [id number] Log [id number] - Chasity [id number] Lens Iol - 1 - Lens Iol 21 Tecnis Implanted:Qty: 1 on 07/08/2011 at [facility] Right: Eye [employer] [id number]# / [id number] / Procedures Procedure Name Priority Date/Time Associated Diagnosis Comments LIPID PANEL Routine 01/15/2011 7:44 AM CDT Pure hypercholesterolemia from Last 3 Months or Most Recently Relevant to Health Maintenance Results * (ABNORMAL) LIPID PANEL (01/15/2011 7:44 AM CDT) CHOLESTEROL,TOTAL 324(H) 110 - 199 mg/dL [facility] TRIGLYCERIDES 53 40 - 149 mg/dL [facility] HDL CHOLESTEROL 103 >40 mg/dL [facility] CHOL/HDL RATIO 3.15 <4.51 [facility] LDL CHOLESTEROL 210(H) <131 mg/dL [facility] PATIENT STATUS Fasting [facility] Blood specimen (specimen) BLOOD SPECIMEN / Unknown 01/15/2011 7:44 AM CDT 01/15/2011 7:40 AM CDT Anupama Jarquin WILDFIRE PREVENTION SPECIALIST CHEMISTRY [facility] INTERNAL ZIP [id number] [place] [id number] from Last 3 Months or Most Recently Relevant to Health Maintenance Advance Directives * Full Code (Latest Code Status on File) Date Activated Date Inactivated Comments 07/25/2021 6:28 AM 07/25/2021 10:08 PM Question Answer Comments Code Status Discussion: Discussed * Full Code Date Activated Date Inactivated Comments 02/28/2019 11:10 AM 03/02/2019 3:26 PM * Full Code Date Activated Date Inactivated Comments 12/29/2018 10:35 PM 12/30/2018 6:19 PM * Full Code Date Activated Date Inactivated Comments 07/08/2011 8:11 AM 07/08/2011 1:55 PM * Full Code Date Activated Date Inactivated Comments 05/27/2011 6:31 AM 05/27/2011 10:47 AM Care Teams Manager Commercial Real Estate Relationship Specialty Start Date End Date Apryl Fink MD [address] [place] [address] PCP - General Family Practice 03/01/17
--- OUTSIDE RECORDS SUMMARY | 2024-02-21 15:35 | XMS_ITS | Clinical Summary ---
Author Name Unknown Organization [facility] Address [address] [place] [address] Care Team Providers Care Bi Tester Name Role Phone Apryl Fink MD Primary Care Provider Source Comments You are receiving this document as you are listed as the primary care provider,follow-up provider, or the patient has been referred to you for consultation.This is in compliance with the Medicare and[facility] EHR Incentive Program,which states Providers who transition their patient to another setting of careor provider of care or refers their patient to another provider of care shouldprovide summary care record for each transition of care or referral. [facility]SI MET-TECH Allergies Active Allergy Reactions Criticality Noted Date [...] (20 mg) by mouth daily. 02/16/2018 Active aspirin 81 MG tablet Take 1 Tablet (81 mg) by mouth daily. Active fexofenadine (CHANDAN) 180 MG tablet Take 1 Tablet (180 mg) by mouth daily as needed. Active busPIRone (BUSPAR) 30 MG tabletIndications: Generalized anxiety disorder (HRC) Take 1 Tablet (30 mg) by mouth two times a day. 180 Tablet 3 08/06/2023 08/05/2024 Active venlafaxine (EFFEXORXR) 150 MG 24 hour release capsuleIndications :Generalized anxiety disorder (HRC),Major depressive disorder, recurrent episode, in partial remission (HRC) Take 1 Capsule (150 mg) by mouth two times a day. 180 Capsule 3 08/06/2023 Active lamoTRIgine (LAMICTAL) 200 MG tabletIndications: Major depressive disorder, recurrent episode, in partial remission (HRC) 0.5 tablet in the AM and 1.5 tablet in the evening 12/28/2023 Active zolpidem tartrate (AMBIEN CR) 12.5 MG controlled release tabletIndications: Insomnia, unspecified type Take 1 Tablet (12.5 mg) by mouth at bedtime as needed. for sleep 90 Tablet 1 12/28/2023 Active Active Problems Problem Noted Date Diagnosed [...] of ovary 09/02/2004 01/16/2006 Overview: LW Onset: [id number] ; Cyst Ovary Immunizations Name Administration Dates [...] alcohol) PHQ-2 Answer Date Recorded PHQ-2 Score 2 12/28/2023 Sex and Gender Information Value Date Recorded Sex Assigned at Not on file Gender Identity Not on file Sexual Orientation Not on file Last Filed Vital Signs Vital Sign Reading Time Taken Comments Blood Pressure 148/103 08/17/2022 11:59 AM CDT Pulse 91 08/17/2022 11:59 AM CDT Temperature 36.7 ??C (98.1 ??F) 11/16/2012 1 1:54 AM SR ACCOUNT EXECUTIVE Respiratory Rate 16 11/16/2012 2:32 PM SR ACCOUNT EXECUTIVE Oxygen Saturation 94% 11/16/2012 2:32 PM SR ACCOUNT EXECUTIVE Inhaled Oxygen Concentration - - Weight 79.7 [...] Yrs (1 - PCV) 01/28/2021 COVID-19 Vaccine ( - season) 2023 09/18/2021, 12/11/2020, 11/13/2020 Influenza (Season Ended) 2024 021, 07/02/2021, 07/26/2019, Additional history exists DTaP/Tdap/Td (3 - [...] ANTIBODY, WITH REFLEX Routine 08/18/2004 9:55 AM SR ACCOUNT EXECUTIVE from Last 3 Months or Most Recently [...] C Antibody, with Reflex (08/18/2004 9:55 AM SR ACCOUNT EXECUTIVE) Hepatitis C Antibody Non Reac Non Reac HP CONVERSION 08/18/2004 9:55 AM SR ACCOUNT EXECUTIVE Drew Bill MD LAB_1 HP CONVERSION from Last 3 Months or Most Recently Relevant to Health Maintenance Care Teams Bi Tester Relationship Specialty Start Date End Date Apryl Fink MD [address] [place] [address] PCP - General 02/12/16
== END 2024-02-10 07:46 | disposition home or self-care (01) ==
LOC: AMB 02-21 15:33
PROVIDERS: PCP Family Medicine; Visit Provider Family Medicine
DX: R55 Syncope and collapse (principal)
CPT/HCPCS: A0998

== ENCOUNTER 2024-02-16 17:01 | Outpatient (CLI) | payer MEDICARE, BC, SELFPAY ==
--- OUTSIDE RECORDS SUMMARY | 2024-02-24 11:04 | XMS_ITS | Clinical Summary ---
Author Name Unknown Organization [facility] Address [address] [place] [address] Care Team Providers Care Engraver Steel Plate Name Role Phone Apryl Fink MD Primary Care Provider Source Comments You are receiving this document as you are listed as the primary care provider,follow-up provider, or the patient has been referred to you for consultation.This is in compliance with the Medicare and[facility] Hospital[facility] EHR Incentive Program,which states Providers who transition their patient to another setting of careor provider of care or refers their patient to another provider of care shouldprovide summary care record for each transition of care or referral. [employer] Allergies Active Allergy Reactions Criticality Noted Date [...] of ovary 09/02/2004 01/16/2006 Overview: LW Onset: [id number] ; Cyst Ovary Immunizations Name Administration Dates [...] ??C (98.1 ??F) 11/16/2012 1 1:54 AM TELEPHONE MAINTENANCE MECHANIC Respiratory Rate 16 11/16/2012 2:32 PM TELEPHONE MAINTENANCE MECHANIC Oxygen Saturation 94% 11/16/2012 2:32 PM TELEPHONE MAINTENANCE MECHANIC Inhaled Oxygen Concentration - - Weight 79.7 [...] ANTIBODY, WITH REFLEX Routine 08/18/2004 9:55 AM TELEPHONE MAINTENANCE MECHANIC from Last 3 Months or Most Recently [...] C Antibody, with Reflex (08/18/2004 9:55 AM TELEPHONE MAINTENANCE MECHANIC) Hepatitis C Antibody Non Reac Non Reac HP CONVERSION 08/18/2004 9:55 AM TELEPHONE MAINTENANCE MECHANIC Drew Bill MD LAB_1 HP CONVERSION from Last 3 Months or Most Recently Relevant to Health Maintenance Care Teams Engraver Steel Plate Relationship Specialty Start Date End Date Apryl Fink MD [address] [address] PCP - General 02/12/16
--- OUTSIDE RECORDS SUMMARY | 2024-02-24 11:04 | XMS_ITS | Clinical Summary ---
Author Name Unknown Organization [facility] Address [place], [place] [address] Care Team Providers Care Gis Instructor Name Role Phone Apryl Fink MD Primary [...] Comments Blood Pressure 120/70 09/30/2023 1:05 PM SOFTWARE QUALITY ASSURANCE ANALYST Pulse 87 09/30/2023 1:05 PM SOFTWARE QUALITY ASSURANCE ANALYST Temperature 36.5 ??C (97.7 ??F) 07/25/2021 6:49 AM CD T Respiratory Rate 16 07/25/2021 6:49 AM CDT Oxygen Saturation 98% 09/30/2023 1:05 PM SOFTWARE QUALITY ASSURANCE ANALYST Inhaled Oxygen Concentration - - Weight 83.9 kg (185 lb) 09/30/2023 1:05 PM SOFTWARE QUALITY ASSURANCE ANALYST Height 165.1 cm (5' 5) 09/30/2023 1:05 PM SOFTWARE QUALITY ASSURANCE ANALYST Body Mass Index 30.79 09/30/2023 1:05 PM SOFTWARE QUALITY ASSURANCE ANALYST Plan of Treatment Health Maintenance Due Date [...] Completed 10/08/2009 Medical Devices Implanted Type Area Radiological Equipment Specialist Device Identifier Shelf Expiration Date Model / Serial / Lot Sleeve Silcn [id number] - [id number] Implanted:Qty: 1 on 09/24/2010 at [facility] Right: Eye [employer] S3071# / / [id number] Strip Silcn 1.25x4.0x125 [id number] - [id number] Implanted:Qty: 1 on 09/24/2010 at [facility] Right: Eye [facility] [employer] Inc S2971# / / [id number] Log [id number] - Chasity [id number] Lens Iol - 1 - Lens Iol 21 Tecnis Implanted:Qty: 1 on 07/08/2011 at [facility] Right: Eye [employer] [id number]# / [id number] / Procedures Procedure Name Priority Date/Time Associated Diagnosis Comments LIPID PANEL Routine 01/15/2011 7:44 AM CDT Pure hypercholesterolemia from Last 3 Months or Most Recently Relevant to Health Maintenance Results * (ABNORMAL) LIPID PANEL (01/15/2011 7:44 AM CDT) CHOLESTEROL,TOTAL 324(H) 110 - 199 mg/dL [facility] TRIGLYCERIDES 53 40 - 149 mg/dL [facility] HDL CHOLESTEROL 103 >40 mg/dL [facility] CHOL/HDL RATIO 3.15 <4.51 [facility] LDL CHOLESTEROL 210(H) <131 mg/dL [facility] PATIENT STATUS Fasting [facility] Blood specimen (specimen) BLOOD SPECIMEN / Unknown 01/15/2011 7:44 AM CDT 01/15/2011 7:40 AM CDT Anupama Jarquin ORCHARD SPRAYER CHEMISTRY [facility] INTERNAL ZIP [id number] [place] [address] from Last 3 Months or Most Recently [...] 6:31 AM 05/27/2011 10:47 AM Care Teams Gis Instructor Relationship Specialty Start Date End Date Apryl Fink MD [address] [place] [address] PCP - General Family Practice 03/01/17
--- OUTSIDE RECORDS SUMMARY | 2024-02-24 11:04 | XMS_ITS | Encounter Summary ---
Author Name Unknown Organization [facility] Address [address] [place] [address] Care Team Providers Care Boot Maker Name Role Phone Apryl Fink MD Primary Care Provider Encounter Details Date Type Department Care Team (Late st Contact Info) Description 11/16/2012 Orders Only [facility] [address] [place] [address] Mariajose Chavira MD [address] [facility] [place] [address] Social History Tobacco Use Types Packs/Day Years Used Date Smoking Tobacco: Never Assessed Sex and Gender Information Value Date Recorded Sex Assigned at Not on file Gender Identity Not on file Sexual Orientation Not on file documented as of this encounter Plan of Treatment Not on file documented as of this encounter Visit Diagnoses Not on filedocumented in this encounter Care Teams Boot Maker Relationship Specialty Start Date End Date Apryl Fink MD [address] [place] [address] PCP - General 02/12/16 documented as of this encounter
== END 2024-02-16 17:02 | disposition home or self-care (01) ==
LOC: AMB 02-24 11:03
PROVIDERS: PCP Family Medicine; Visit Provider Family Medicine
DX: R53.1 Weakness (principal)
CPT/HCPCS: A0998

== ENCOUNTER 2024-04-17 08:50 | Outpatient (CLI) | payer MEDICARE, BC, SELFPAY ==
--- OUTSIDE RECORDS SUMMARY | 2024-04-19 12:05 | XMS_ITS | Clinical Summary ---
Author Organization [facility] Address [address] [place] [address] Care Team Providers Care Ice Plant Operator Name Role Phone Apryl Fink MD Primary Care Provider Source Comments You are receiving this document as you are listed as the primary care provider,follow-up provider, or the patient has been referred to you for consultation.This is in compliance with the Medicare and[facility] System[facility] EHR Incentive Program,which states Providers who transition their patient to another setting of careor provider of care or refers their patient to another provider of care shouldprovide summary care record for each transition of care or referral. [employer] Allergies Active Allergy Reactions Criticality Noted Date [...] for sleep 90 Tablet 1 12/28/2023 Active venlafaxine (EFFEXORXR) 37.5 MG 24 hour release capsule Take 1 Capsule (37.5 mg) by mouth daily. + 150 mg capsule in the AM = 187.5 mg in the AM (Also takes 150 mg capsule in the evening) 90 Capsule 1 04/18/2024 04/18/2025 Active Active Problems Problem Noted Date Diagnosed [...] of ovary 09/02/2004 01/16/2006 Overview: LW Onset: [id number] ; Cyst Ovary Immunizations Name Administration Dates [...] PHQ-2 Answer Date Recorded PHQ-2 Score 4 04/18/2024 Sex and Gender Information Value Date Recorded Sex Assigned at Not on file Gender Identity Not on file Sexual Orientation Not on file Last Filed Vital Signs Vital Sign Reading Time Taken Comments Blood Pressure 148/103 08/17/2022 11:59 AM CDT Pulse 91 08/17/2022 11:59 AM CDT Temperature 36.7 ??C (98.1 ??F) 11/16/2012 1 1:54 AM SANITATION LABORER Respiratory Rate 16 11/16/2012 2:32 PM SANITATION LABORER Oxygen Saturation 94% 11/16/2012 2:32 PM SANITATION LABORER Inhaled Oxygen Concentration - - Weight 79.7 [...] season) 2023 09/18/2021, 12/11/2020, 11/13/2020 Influenza (#1) 2024 08/06/2021, 06/18, 07/26/2019, Additional history exists DTaP/Tdap/Td [...] ANTIBODY, WITH REFLEX Routine 08/18/2004 9:55 AM SANITATION LABORER from Last 3 Months or Most Recently [...] C Antibody, with Reflex (08/18/2004 9:55 AM SANITATION LABORER) Hepatitis C Antibody Non Reac Non Reac HP CONVERSION 08/18/2004 9:55 AM SANITATION LABORER Drew Bill MD LAB_1 HP CONVERSION from Last 3 Months or Most Recently Relevant to Health Maintenance Care Teams Ice Plant Operator Relationship Specialty Start Date End Date Apryl Fink MD [address] [address] PCP - General 02/12/16
--- OUTSIDE RECORDS SUMMARY | 2024-04-19 12:05 | XMS_ITS | Clinical Summary ---
Author Organization [facility] Address [place], [place] [address] Care Team Providers Care Chemical Laboratory Tester Name Role Phone Apryl Fink MD [...] Comments Blood Pressure 120/70 09/30/2023 1:05 PM BAR AND FILLER ASSEMBLER Pulse 87 09/30/2023 1:05 PM BAR AND FILLER ASSEMBLER Temperature 36.5 ??C (97.7 ??F) 07/25/2021 6:49 AM CD T Respiratory Rate 16 07/25/2021 6:49 AM CDT Oxygen Saturation 98% 09/30/2023 1:05 PM BAR AND FILLER ASSEMBLER Inhaled Oxygen Concentration - - Weight 83.9 kg (185 lb) 09/30/2023 1:05 PM BAR AND FILLER ASSEMBLER Height 165.1 cm (5' 5) 09/30/2023 1:05 PM BAR AND FILLER ASSEMBLER Body Mass Index 30.79 09/30/2023 1:05 PM BAR AND FILLER ASSEMBLER Plan of Treatment Health Maintenance Due Date [...] Completed 10/08/2009 Medical Devices Implanted Type Area Construction Code Administrator Device Identifier Shelf Expiration Date Model / Serial / Lot Sleeve Silcn [id number] - [id number] Implanted:Qty: 1 on 09/24/2010 at [facility] Right: [facility] S3071# / / [id number] Strip Silcn 1.25x4.0x125 [id number] - [id number] Implanted:Qty: 1 on 09/24/2010 at [facility]: [facility] S2971# / / [id number] Log [id number] - Chasity [id number] Lens Iol - 1 - Lens Iol 21 Tecnis Implanted:Qty: 1 on 07/08/2011 at [facility] Right: Eye [employer] [id number]# / [id number] / Procedures Procedure Name Priority Date/Time Associated Diagnosis Comments LIPID PANEL Routine 01/15/2011 7:44 AM CDT Pure hypercholesterolemia from Last 3 Months or Most Recently Relevant to Health Maintenance Results * (ABNORMAL) LIPID PANEL (01/15/2011 7:44 AM CDT) CHOLESTEROL,TOTAL 324(H) 110 - 199 mg/dL [facility] TRIGLYCERIDES 53 40 - 149 mg/dL [facility] HDL CHOLESTEROL 103 >40 mg/dL [facility] CHOL/HDL RATIO 3.15 <4.51 [facility] LDL CHOLESTEROL 210(H) <131 mg/dL [facility] PATIENT STATUS Fasting [facility] Blood specimen (specimen) BLOOD SPECIMEN / Unknown 01/15/2011 7:44 AM CDT 01/15/2011 7:40 AM CDT Anupama Jarquin NP CHEMISTRY [facility] INTERNAL ZIP [address] [place] [address] from Last 3 Months or Most Recently [...] 6:31 AM 05/27/2011 10:47 AM Care Teams Chemical Laboratory Tester Relationship Specialty Start Date End Date Apryl Fink MD [address] [place] [address] PCP - General Family Practice 03/01/17
--- OUTSIDE RECORDS SUMMARY | 2024-04-19 12:05 | XMS_ITS | Encounter Summary ---
Author Organization [facility] Address [address], [place] [address] Care Team Providers Care Mixing Picker Tender Name Role Phone Apryl Fink MD Primary Care Provider Encounter Details Date Type Department Care Team (Late st Contact Info) Description 11/16/2012 Orders Only [facility] [address] [place] [address] Mariajose Chavira MD [address] [facility] [place] [address] Social History Tobacco Use Types Packs/Day Years Used Date Smoking Tobacco: Never Assessed Sex and Gender Information Value Date Recorded Sex Assigned at Not on file Gender Identity Not on file Sexual Orientation Not on file documented as of this encounter Plan of Treatment Not on file documented as of this encounter Visit Diagnoses Not on filedocumented in this encounter Care Teams Mixing Picker Tender Relationship Specialty Start Date End Date Apryl Fink MD [address] [facility] [place] [address] PCP - General 02/12/16 documented as of this encounter
== END 2024-04-17 08:51 | disposition home or self-care (01) ==
LOC: NFLDREF 04-19 12:03
PROVIDERS: PCP Family Medicine; Referring Provider Family Medicine; Visit Provider Internal Medicine Nephrology
DX: N18.31 Chronic kidney disease, stage 3a (principal); G40.909 Epilepsy, unspecified, not intractable, without status epilepticus; R53.83 Other fatigue; E03.9 Hypothyroidism, unspecified
CPT/HCPCS: 80069; 82043; 82570; 82728; 83540; 83550; 84439; 84443; 84550; 87086

== ENCOUNTER 2024-07-06 12:36 | Outpatient (CLI) | payer MEDICARE, BC, SELFPAY ==
--- OUTSIDE RECORDS SUMMARY | 2024-07-06 12:38 | XMS_ITS | Clinical Summary ---
Author Organization [facility] Address [address] [place] [address] Care Team Providers Care Alodize Machine Operator Name Role Phone Apryl Fink MD Primary Care Provider Source Comments You are receiving this document as you are listed as the primary care provider,follow-up provider, or the patient has been referred to you for consultation.This is in compliance with the Medicare and[facility] EHR Incentive Program,which states Providers who transition their patient to another setting of careor provider of care or refers their patient to another provider of care shouldprovide summary care record for each transition of care or referral. [facility] Allergies Active Allergy Reactions Criticality Noted Date [...] r ecurrent episode, in partial remission 06/11/2011 Overview (06/09/2017): Major depressive disorder, recurrent episode, in partial or unspecified remission Generalized anxiety disorder 06/11/2011 Essential hypertension 08/17/2007 Overview (06/09/2017): Hypertension Hyperlipidemia 08/17/2007 Resolved Problems Problem Noted Date Diagnosed Date Resolved Date Distal radius fracture 11/17/201211/16 Cyst of ovary 09/02/2004 01/16/2006 Overview (06/09/2017): LW Onset: [id number] ; Cyst Ovary Immunizations Name Administration Dates [...] ??C (98.1 ??F) 11/16/2012 1 1:54 AM PUBLISHING SYSTEMS ANALYST Respiratory Rate 16 11/16/2012 2:32 PM PUBLISHING SYSTEMS ANALYST Oxygen Saturation 94% 11/16/2012 2:32 PM PUBLISHING SYSTEMS ANALYST Inhaled Oxygen Concentration - - Weight 79.7 [...] (1 - PCV) 01/28/2021 COVID-19 Vaccine ( season) 2024 09/18/2021, 12/11/2020, 11/13/2020 Influenza (#1) 2024 08/06/2021, 06/18, 07/26/2019, Additional history exists DTaP/Tdap/Td (3 - Tdap) 10/26/2029 10/26/2019, 10/08 RSV (1 - 1-dose 75+ series) 01/28/2031 Hep C Screening (Preventive Services) Completed 08/18/2004 [...] ANTIBODY, WITH REFLEX Routine 08/18/2004 9:55 AM PUBLISHING SYSTEMS ANALYST from Last 3 Months or Most Recently [...] C Antibody, with Reflex (08/18/2004 9:55 AM PUBLISHING SYSTEMS ANALYST) Hepatitis C Antibody Non Reac Non Reac HP CONVERSION 08/18/2004 9:55 AM PUBLISHING SYSTEMS ANALYST Drew Bill MD LAB_1 HP CONVERSION from Last 3 Months or Most Recently Relevant to Health Maintenance Care Teams Alodize Machine Operator Relationship Specialty Start Date End Date Apryl Fink MD [address] [address] PCP - General 02/12/16
--- OUTSIDE RECORDS SUMMARY | 2024-07-06 12:38 | XMS_ITS | Encounter Summary ---
Author Organization [facility] Address [address] [place] [address] Care Team Providers Care Analytical Lab Analyst Name Role Phone Apryl Fink MD Primary Care Provider Encounter Details Date Type Department Care Team (Late st Contact Info) Description 11/16/2012 Orders Only [facility] [address] [place] [address] Mariajose Chavira MD [address] [facility] [place] [place] [address] Social History Tobacco Use Types Packs/Day Years Used Date Smoking Tobacco: Never Assessed Sex and Gender Information Value Date Recorded Sex Assigned at Not on file Gender Identity Not on file Sexual Orientation Not on file documented as of this encounter Plan of Treatment Not on file documented as of this encounter Visit Diagnoses Not on filedocumented in this encounter Care Teams Analytical Lab Analyst Relationship Specialty Start Date End Date Apryl Fink MD [address] [facility] [place] [address] PCP - General 02/12/16 documented as of this encounter
--- OUTSIDE RECORDS SUMMARY | 2024-07-06 12:38 | XMS_ITS | Clinical Summary ---
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 CKD (chronic kidney disease) stage 3, GFR 30-59 ml/min 10/31/2013 HTN (hypertension) 10/31/2013 Major depressive disorder, r ecurrent episode, in partial remission 06/11/2011 Overview (12/29/2018): Overview: Major depressive disorder, recurrent episode, in partial or unspecified remission Retinal detachment 09/26/2010 Overview (05/20/2011): Right eye, surgery 09/24/10, Dr Andrea Schreiber Has history of left retinal detachment 05/11/[address] Schreiber Arthritis Overview (03/04/2010): Psoriatic Arthritis, visit with Dr [place] on 10/22/2009, 01/15/10,02/26/10 Hiatal hernia Resolved Problems Problem Noted Date Diagnosed Date Resolved Date Hypoactive thyroid 12/29/2018 9 Detached retina 12/29/2018 12/29/2018 Mixed anxiety depressive disorder 12/29/2018 12/29/2018 Spastic quadriparesis 10/31/20132018 Generalized anxiety disorder 06/11/2011 12/29/2018 Preventive Health Maintainance 10/08/2009 10/31/2013 Overview (10/08/2009): Pap smear - had hystectomy Mammogram - [...] Comments Blood Pressure 120/70 09/30/2023 1:05 PM REPOSSESSOR Pulse 87 09/30/2023 1:05 PM REPOSSESSOR Temperature 36.5 ??C (97.7 ??F) 07/25/2021 6:49 AM CD T Respiratory Rate 16 07/25/2021 6:49 AM CDT Oxygen Saturation 98% 09/30/2023 1:05 PM REPOSSESSOR Inhaled Oxygen Concentration - - Weight 83.9 kg (185 lb) 09/30/2023 1:05 PM REPOSSESSOR Height 165.1 cm (5' 5) 09/30/2023 1:05 PM REPOSSESSOR Body Mass Index 30.79 09/30/2023 1:05 PM REPOSSESSOR Plan of Treatment Health Maintenance Due Date [...] 1 - PCV) 01/28/2021 COVID-19 vaccine series ( season) 2024 09/18/2021, 11/13/2020 Influenza for age 65+ 06/18/2024 07/04/2015 , 10/08/2009, 10/08/2009 BMI (ht and wt on same day) for age 18+ 09/30/2024 09/30/2023, 02/22/2019, 02/08/2019 Tdap Completed 10/08/2009 Medical Devices Implanted Type Area Outpatient Phlebotomist Device Identifier Shelf Expiration Date Model / Serial / Lot Sleeve Silcn [id number] - [id number] Implanted:Qty: 1 on 09/24/2010 at [facility] Right: Eye [employer] [id number]# / / [id number] Strip Silcn 1.25x4.0x125 [id number] - [id number] Implanted:Qty: 1 on 09/24/2010 at [facility] Right: Eye [employer] [id number]# / / [id number] - Chasity [id number] Lens Iol - 1 - Lens Iol 21 Tecnis Implanted:Qty: 1 on 07/08/2011 at [facility] Right: Eye [employer] [id number]# / [id number] / Procedures Procedure Name Priority Date/Time Associated Diagnosis Comments LIPID PANEL Routine 01/15/2011 7:44 AM CDT Pure hypercholesterolemia from Last 3 Months or Most Recently Relevant to Health Maintenance Results * (ABNORMAL) LIPID PANEL (01/15/2011 7:44 AM CDT) CHOLESTEROL,TOTAL 324(H) 110 - 199 mg/dL [facility] 53 40 - 149 mg/dL [facility] HDL CHOLESTEROL 103 >40 mg/dL [facility] CHOL/HDL RATIO 3.15 <4.51 [facility] LDL CHOLESTEROL 210(H) <131 mg/dL [facility] PATIENT STATUS Fasting [facility] Blood specimen (specimen) BLOOD SPECIMEN / Unknown 01/15/2011 7:44 AM CDT 01/15/2011 7:40 AM CDT Anupama Jarquin CLERICAL SPECIALIST CHEMISTRY [facility] [place]NAL [place]IP [address] [place] [id number] from Last 3 Months or Most Recently [...] 6:31 AM 05/27/2011 10:47 AM Care Teams Tank House Operator Helper Relationship Specialty Start Date End Date Apryl Fink MD [address] [place] [address] PCP - General Family Practice 03/01/17
--- NOTE | 2024-07-06 13:00 | CRLHL7_ITS ---
For Patients: As a result of the Century Cures Act, medical imaging exams and procedure reports are released immediately into your electronic medical record. You may view this report before your referring provider. If you have questions, please contact your health care provider. BILATERAL SCREENING MAMMOGRAM WITH COMPUTER-AIDED DETECTION AND TOMOSYNTHESIS TECHNIQUE: CC and MLO views were obtained. These mammographic images have been obtained using full-field digital technique. These mammographic images were interpreted with the benefit of computer-aided detection. Breast tomosynthesis was used in this interpretation. COMPARISON FILM: 07/28/19, 03/03/18, 11/28/15. FINDINGS: There are scattered areas of fibroglandular density. IMPRESSION: There is no radiographic evidence for malignancy. ASSESSMENT: BI-RADS Category 1: Negative RECOMMENDATION: Routine screening mammogram in 1 year. A lay language report of this examination will be provided to the patient. KENNY DEL CASTILLO M.D. Diagnostic Radiologist [email or web address] TYESHA/fletcher Transcribed: 07/07/2024, 3:[address]/Dictated by: Kenny Del Castillo MD @ 07/07/2024 12:31:00 PM (Electronically Signed)
--- NOTE | 2024-07-06 13:30 | CRLHL7_ITS ---
For Patients: As a result of the Century Cures Act, medical imaging exams and procedure reports are released immediately into your electronic medical record. You may view this report before your referring provider. If you have questions, please contact your health care provider. DXA BONE MINERAL DENSITY STUDY Reason for exam: Screening. Current height (in): 65. Weight (lb): 185. Menopause age: 41. Ethnicity: White. 1. Have you had a previous hip or vertebral fracture? No. 2. Have you had any fractures during your adult life which did not result from significant trauma (e.g., auto accident)? No. 3. Did either of your parents have a hip fracture? Yes. 4. Do you smoke? No. 5. Have you ever taken Glucocorticoids? No. 6. Do you have rheumatoid arthritis? No. 7. Do you have secondary osteoporosis? No. 8. Do you drink 3 or more alcoholic drinks per day? No. 9. Are you being treated for osteoporosis? No. 10. Have you ever taken any of the following medications: Actonel, Evista, Fosamax, Miacalcin, Reclast, Boniva, Forteo, HRT (i.e. estrogen/hormone therapy), Protelos, Prolia, Vitamin D, Calcium, other ??? please specify. ANSWER: Yes, vitamin D. 11. Do you have any of the following medical conditions: Anorexia or bulimia, asthma or emphysema, end stage renal disease, hyperparathyroidism, any seizure disorders, cancer, inflammatory bowel diseases, hysterectomy, other ??? please specify. ANSWER: Yes, seizure disorder, inflammatory bowel disease, hysterectomy. 12. What was your maximum height (inches)? 66. 13. Do you perform weight bearing exercise regularly? No. 14. Do you regularly consume dairy products? Yes. 15. Do you drink caffeinated beverages? Yes. 16. At what age did your period start? 13. 17. Are you premenopausal? No. 18. How many full-term pregnancies have you had? Zero. 19. Have you ever missed your period for more than 6 months in a row (not including or menopause)? No. TECHNIQUE: Bone mineral density study was performed using the [employer]. FINDINGS: The results of the study expressed as bone mineral density (BMD) are as follows: Lumbar spine L1 to L3: BMD: 0.945 g/cm2. T-score: -0.7. Z-score: 1.3. Neck Left: BMD: 0.527 g/cm2. T-score: -2.9. Z-score: -1.2. Right: BMD: 0.718 g/cm2. T-score: -1.2. Z-score: 0.5. Total Left: BMD: 0.767 g/cm2. T-score: -1.4. Z-score: 0.0. Right: BMD: 0.723 g/cm2. T-score: -1.8. Z-score: -0.4. IMPRESSION: Osteoporosis. Kenny Isaac M.D. Diagnostic Radiologist [email or web address] TYESHA/wilfrid / bM/Dictated by: Kenny Isaac MD @ 07/07/2024 12:08:00 PM (Electronically Signed)
== END 2024-07-06 12:37 | disposition home or self-care (01) ==
LOC: MAMMO 12:37
PROVIDERS: PCP Family Medicine; Visit Provider Family Medicine
DX: Z12.31 Encounter for screening mammogram for malignant neoplasm of breast (principal); Z13.820 Encounter for screening for osteoporosis; M81.0 Age-related osteoporosis without current pathological fracture; Z78.0 Asymptomatic menopausal state
CPT/HCPCS: 77063; 77067; 77080

== ENCOUNTER 2025-02-06 11:11 | Outpatient (CLI) | payer MEDICARE, BC, SELFPAY ==
--- NOTE | 2025-02-06 15:19 | PC.SOCIAL ---
Discharge Specialist Consult: SW spoke with patient via phone. Kathy states her main concerns are cost of transportation to doctor appts and cleaning services in her home. Kathy explains that typically she uses the bus through [facility], but this cost is $30 or she uses a taxi which is $20. SW and patient discussed [employer] [employer]. Patient states that she used this during Covid, but there was some stress with them dropping her far from the place she needed to be or the circumstances did not go well. SW explained she would call to clarify curb to curb rides with them and call patient in the morning. SW explained that there unfortunately no other transportation services that SW is aware of that will be lower cost. SW discussed that without being on a waiver program, that all home services will be private pay. Patient inquired about agencies to contact. SW to send a list to patient via mail.
--- NOTE | 2025-02-07 10:43 | PC.SOCIAL ---
Social Work Consult: ELIANE spoke with Kathy and informed that ELIANE spoke with [facility] and learned the following. Kathy could use the dial a ride service to do curb to curb and it's recommended that she call 6 days in advance to be able to get the times and dates she needs. ELIANE explained that while they don't directly to [facility], she would need to go to [facility] Route stop when she's using curb to curb, but they could then bring her directly to the [facility] doors. ELIANE explained that the cost is $2.[address] Kathy had no further questions about this. ELIANE also discussed the home cleaning services. ELIANE explained she would mail the information for the transportation and home cleaning services today. Kathy states no further questions at this time.
== END 2025-02-06 11:12 | disposition home or self-care (01) ==
PROVIDERS: PCP Family Medicine; Visit Provider Family Medicine
DX: E78.5 Hyperlipidemia, unspecified (principal); M81.0 Age-related osteoporosis without current pathological fracture; R73.03 Prediabetes; I12.9 Hypertensive chronic kidney disease with stage 1 through stage 4 chronic kidney disease, or unspecified chronic kidney disease; N18.32 Chronic kidney disease, stage 3b; E03.9 Hypothyroidism, unspecified
CPT/HCPCS: 80053; 80061; 82306; 84439; 84443

== ENCOUNTER 2025-04-19 10:09 | Outpatient (CLI) | payer MEDICARE, BC, SELFPAY | END 2025-04-19 10:10 | disposition home or self-care (01) | LOC: NFLDREF 11:04 | PROVIDERS: PCP Family Medicine; Referring Provider Family Medicine; Visit Provider Internal Medicine Nephrology | DX: I12.9 Hypertensive chronic kidney disease with stage 1 through stage 4 chronic kidney disease, or unspecified chronic kidney disease (principal); N18.32 Chronic kidney disease, stage 3b; M81.0 Age-related osteoporosis without current pathological fracture; E55.9 Vitamin D deficiency, unspecified; E03.9 Hypothyroidism, unspecified; R53.83 Other fatigue | CPT/HCPCS: 80069; 82043; 82570; 82728; 83540; 83550; 83970; 84439; 84443; 84550 ==

== ENCOUNTER 2025-05-12 11:41 | Outpatient (CLI) | payer MEDICARE, BC, SELFPAY | END 2025-05-12 11:42 | disposition home or self-care (01) | LOC: AMB 05-13 10:24 | PROVIDERS: PCP Family Medicine; Visit Provider Internal Medicine | DX: R53.1 Weakness (principal) | CPT/HCPCS: A0998 ==

== ENCOUNTER 2025-07-29 15:55 | Outpatient (CLI) | payer MEDICARE, BC, SELFPAY | END 2025-07-29 15:56 | disposition home or self-care (01) | LOC: AMB 07-31 13:45 | PROVIDERS: PCP Family Medicine; Visit Provider Family Medicine | DX: R53.1 Weakness (principal) | CPT/HCPCS: A0998 ==

== ENCOUNTER 2025-07-29 21:58 | Outpatient (CLI) | payer MEDICARE, BC, SELFPAY | END 2025-07-29 21:59 | disposition home or self-care (01) | LOC: AMB 07-31 15:12 | PROVIDERS: PCP Family Medicine; Visit Provider Family Medicine | DX: S99.912A Unspecified injury of left ankle, initial encounter (principal); W06.XXXA Fall from bed, initial encounter; Y92.032 Bedroom in apartment as the place of occurrence of the external cause | CPT/HCPCS: A0425; A0427 ==

== ENCOUNTER 2025-07-29 22:36 | Inpatient (IN) | payer MEDICARE, BC, SELFPAY ==
--- OUTSIDE RECORDS SUMMARY | 2025-07-29 22:39 | XMS_ITS | Clinical Summary ---
Author Organization [facility] Address [address] [place] [address] Care Team Providers Care Harvester Operator Name Role Phone Apryl Fink MD Primary Care Provider Source Comments You are receiving this document as you are listed as the primary care provider,follow-up provider, or the patient has been referred to you for consultation.This is in compliance with the Medicare and[facility] EHR Incentive Program,which states Providers who transition their patient to another setting of careor provider of care or refers their patient to another provider of care shouldprovide summary care record for each transition of care or referral. [facility] Allergies Active Allergy Reactions Criticality Noted Date [...] High 07/17/2013 Sulfites Anaphylaxis High 02/12/2016 Medications triamcinolone acetonide (AKA KENALOG) 0.1 % cream Apply 1 Application topically 2 times daily. 80 g 3 1 Active aspirin 81 MG tablet Take 1 Tablet (81 mg) by mouth daily. Active fexofenadine (CHANDAN) 180 MG tablet Take 1 Tablet (180 mg) by mouth daily as needed. Active venlafaxine (EFFEXORXR) 75 MG 24 hour release capsule Take 1 Capsule (75 mg) by mouth At Bedtime. + 2 of the 150 mg capsules in the AM = 375 mg total per day 90 Capsule 3 5 12/15/19 26 Active venlafaxine (EFFEXORXR) 150 MG 24 hour release capsuleIndicatio ns:Generalized anxiety disorder (HRC),Major depressive disorder, recurrent, moderate (HRC) Take 2 Capsules (300 mg) by mouth every morning. + takes 75 mg capsule at bedtime = 375 mg total daily 180 Capsule 3 5 Active lamoTRIgine (LAMICTAL) 200 MG tabletIndication s:Major depressive disorder, recurrent, moderate (HRC) 1.5 tablet in the evening 135 Tablet 3 5 Active pravastatin (PRAVACHOL) 40 MG tablet Take 1 Tablet (40 mg) by mouth daily at bedtime. Active zolpidem tartrate (AMBIEN CR) 12.5 MG controlled release tabletIndication s:Insomnia, unspecified type Take 1 Tablet (12.5 mg) by mouth at bedtime as needed. for sleep 90 Tablet 1 5 Active busPIRone (BUSPAR) 30 MG tabletIndication s:Generalized anxiety disorder (HRC) Take 1 Tablet (30 mg) by mouth two times a day. 180 Tablet 3 5 05/15/20 26 Active Active Problems Problem Noted Date Diagnosed [...] ovary 09/02/2004 01/16/2006 Overview (06/09/2017): LW Onset: [id number] ; Cyst Ovary Encounters Date Type Department Care Team Description 05/15/2025 4:00 PM CDT Telemedicine [facility] [address] [place] [address] Opal Justice MD Major depressive disorder, recurrent, moderate (HRC) (Primary Dx); Generalized anxiety disorder (HRC); Insomnia, unspecified type from Last 3 Months Immunizations Immunization Administration Dates Next Due Flu Vac Preserv Free (3+yrs) 08/17/2007 Family History Medical History Relation Name Comments High Blood Pressure Father Relation Name Status Comments Father Social History Tobacco Use Types Packs/Day Years Used Date Smoking Tobacco: Never Smokeless Tobacco: Never Alcohol Use Standard Drinks/Week Comments No 0 (1 standard drink = 0.6 oz pur e alcohol) PHQ-2 Answer Date Recorded PHQ-2 Score 3 12/15/2024 Comments Unknown Sex and Gender Information Value Date Recorded Sex Assigned at Not on file Legal Sex Female 8:20 PM CDT Gender Identity Not on file Sexual Orientation Not on file 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 Not on file Not on file Last Filed Vital Signs Vital Sign Reading Time Taken Comments Blood Pressure 148/103 08/17/2022 11:59 AM CDT Pulse 91 08/17/2022 11:59 AM CDT Temperature 36.7 C (98.1 F) 11/16/2012 11:54 AM LAMINATING MACHINE OFFBEARER Respiratory Rate 16 11/16/2012 2:32 PM LAMINATING MACHINE OFFBEARER Oxygen Saturation 94% 11/16/2012 2:32 PM LAMINATING MACHINE OFFBEARER Inhaled Oxygen Concentration - - Weight 79.7 kg (175 lb 12.8 oz) 022 11:59 AM CDT Height 165.1 cm (5' 5) 08/17/2022 11:5 9 AM CDT Body Mass Index 29.25 08/17/2022 11:59 AM CDT Plan of Treatment Health Maintenance Due Date Last Done Comments Colon Cancer Screening Plan Due 1955 Medicare Annual Wellness Visit 1955 Mammogram 1955 Pneumococcal Vaccine 50+ Yrs (1 of 1 - PCV) 01/28/2006 Zoster/Shingles Vaccine (1 of 2) 01/28/2006 Cholesterol 07/06/2016 07/06/2011, 07/20, 11/19/2003 Dexa 01/28/2021 COVID-19 Vaccine ( - 2024- season) 2025 09/18/2021, 12/11/2020, 11/13/2020 Influenza Vaccine (#1) 2025 , 07/02/2021, 07/26/2019, Additional history exists DTaP/Tdap/Td Vaccine (3 - Tdap) 10/26/2029 10/26/2019, 10/08/2009 RSV Vaccine (1 - 1-dose 75+ series) 01/28/2031 Hep C Screening (Preventive Services) Completed 08/18/2004 HepA Vaccine Aged Out No longer eligi ble based on patient's age to complete this topic HepB Vaccine Aged Out No longer eligi ble based on patient's age to complete this topic Hib Vaccine Aged Out No longer eligi ble based on patient's age to complete this topic IPV (Polio) Vaccine Aged Out No longe r eligible based on patient's age to complete this topic MCV4 Vaccine Aged Out No longer eligi ble based on patient's age to complete this topic Meningococcal B Vaccine Aged Out No l onger eligible based on patient's age to complete this topic Procedures Procedure Name Priority Date/Time Associated Diagnosis Comments CHOLESTEROL, TOTAL AND HDL Routine 07/06/2011 1:38 PM CDT Other and unspecified hyperlipidemia (HRC) HEPATITIS C ANTIBODY, WITH REFLEX (ANTI-HCV) Routine 08/18/2004 9:55 AM LAMINATING MACHINE OFFBEARER from Last 3 Months or Most Recently Relevant to Health Maintenance Results * (ABNORMAL) Cholesterol, Total and HDL (07/06/2011 1:38 PM CDT) Cholesterol 291(H) 0 - 200 mg/dL [facility] HDL Cholesterol 118 >39 mg/dL [facility] Cholesterol/HDL Ratio Screen 2.5 HP CONVERSION 07/06/2011 1:38 PM CDT 07/06/2011 6:15 PM CDT us Chas Ivy MD LAB_1 Final Result HP CONVERSION * Hepatitis C Antibody, with Reflex (08/18/2004 9:55 AM LAMINATING MACHINE OFFBEARER) Hepatitis C Antibody Non Reac Non Reac HP CONVERSION 08/18/2004 9:55 AM LAMINATING MACHINE OFFBEARER us Drew Bill MD LAB_1 Final Result HP CONVERSION from Last 3 Months or Most Recently Relevant to Health Maintenance Insurance MEDICARE MANAGED CARE [facility] [place] [employer] [id number] [place] [id number] [id number] [place] [id number] [facility] [employer] [employer] [id number] [place] [id number] Care Teams Harvester Operator Relationship Specialty Start Date End Date Apryl Fink MD [address] [facility] [place] [address] PCP - General 02/12/16
--- OUTSIDE RECORDS SUMMARY | 2025-07-29 22:39 | XMS_ITS | Clinical Summary ---
Author Organization [facility] Address [address] [place] [address] Care Team Providers Care Hiv Counselor Name Role Phone Apryl Fink MD Primary [...] High 02/08/2019 Throat closing, difficulty breathing Medications lamotrigine (LAMICTAL) 200 mg tablet Take 2 tablets by mouth at bedtime. 0 0 Active meclizine (ANTIVERT) 25 mg tablet Take 1 tablet by mouth every 8 hours if needed. 9 Active zolpidem CR (AMBIEN CR) 6.25 mg Extended-Relea se tablet Take 6.25 mg by mouth at bedtime. 9 Active aspirin (ECOTRIN) 81 mg enteric coated tablet Take 81 mg by mouth once daily with lunch. Active Cholecalcifero l, Vitamin D3, 2,000 unit tablet Take 2,000 Units by mouth once daily in the afternoon. Active venlafaxine (EFFEXOR XR) 150 mg Extended-Relea se capsule Take 300 mg by mouth once daily. 9 Active artificial tears, peg 400-propylene glycol, (SYSTANE) 0.4-0.3 % drop ophthalmic Place 1 Drop into both eyes 2 times daily if needed for Dry Eyes. Active pravastatin (PRAVACHOL) 20 mg tablet Daily At 2:15PM Acti ve acetaminophen (TYLENOL EXTRA STRGTH) 500 mg tablet Take 1,000 mg by mouth every 6 hours if needed. Max acetaminophen dose: 4000mg in 24 hrs. 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 Not on file Not on file Obstetrics History Para Term AB IAB SAB Ectopic Multiple Livin g Live Births 0 0 0 0 0 0 0 0 0 0 Last Filed Vital Signs Vital Sign Reading Time Taken Comments Blood Pressure 120/70 09/30/2023 1:05 PM MOTOR COACH TOUR OPERATOR Pulse 87 09/30/2023 1:05 PM MOTOR COACH TOUR OPERATOR Temperature 36.5 C (97.7 F) 07/25/2021 6:49 AM CDT Respiratory Rate 16 07/25/2021 6:49 AM CDT Oxygen Saturation 98% 09/30/2023 1:05 PM MOTOR COACH TOUR OPERATOR Inhaled Oxygen Concentration - - Weight 83.9 kg (185 lb) 09/30/2023 1:05 PM MOTOR COACH TOUR OPERATOR Height 165.1 cm (5' 5) 09/30/2023 1:05 PM MOTOR COACH TOUR OPERATOR Body Mass Index 30.79 09/30/2023 1:05 PM MOTOR COACH TOUR OPERATOR Plan of Treatment Health Maintenance Due Date Last Done Comments Depression screening for age 12+ 1968 Hepatitis C screening for ag e 18-79 01/28/1974 Colonoscopy through age 75 01/28/2001 Mammogram for age 45-75 01/28/2001 Pneumococcal series for age 50+ (1 of 1 - PCV) 01/28/2006 Zoster (shingles) series for age 50+ (1 of 2) 01/28/2006 Lipids for age 45-75 01/16/2016 01/15/2011, 10/07/2009 RSV vaccine for adults or (1 - Risk 60-74 years 1-dose series) 2016 Tetanus booster 10/08/2019 10/08/2009 DEXA/DXA scan for age 65+ 01/28/2021 Medicare Wellness for age 65+ 01/28/2021 BMI (ht and wt on same day) for age 18+ 09/30/2024 09/30/2023, 02/22/2019, 02/08/2019 COVID-19 vaccine series (3 - 2024- season) 2025 09/18/2021, 11/13/2020 Influenza Vaccine (#1) 2025 , 07/04/2015, 10/08/2009 Hepatitis B series for 19+ Aged Out N o longer eligible based on patient's age to complete this topic Medical Devices Implanted Type Area Entry Level Account Executive Device Identifier Shelf Expiration Date Model / Serial / Lot Sleeve Silcn [id number] - [id number] Implanted:Qty: 1 on 09/24/2010 at [facility] Right: Eye [employer] [id number]# / / [id number] Strip Silcn 1.25x4.0x125 [id number] - [id number] Implanted:Qty: 1 on 09/24/2010 at [facility] Right: Eye [employer] [id number]# / / [id number] - Chasity [id number] Lens Iol - 1 - Lens Iol 21 Tecnis Implanted:Qty: 1 on 07/08/2011 at [facility] Right: Eye [employer] [id number]# / [id number] / Procedures Procedure Name Priority Date/Time Associated Diagnosis Comments LIPID PANEL Routine 01/15/2011 7:44 AM CDT Pure hypercholesterolemia from Last 3 Months or Most Recently Relevant to Health Maintenance Results * (ABNORMAL) LIPID PANEL (01/15/2011 7:44 AM CDT) CHOLESTEROL,TOTAL 324(H) 110 - 199 mg/dL [facility] 53 40 - 149 mg/dL [facility] HDL CHOLESTEROL 103 >40 mg/dL [facility] CHOL/HDL RATIO 3.[address] [facility] LDL CHOLESTEROL 210(H) <131 mg/dL [facility] PATIENT STATUS Fasting [facility] Blood specimen (specimen) BLOOD SPECIMEN / Unknown 01/15/2011 7:44 AM CDT 01/15/2011 7:40 AM CDT us Anupama Jarquin TOE STRIPPER CHEMISTRY Final Result [facility] INTERNAL ZIP [id number] [address] [address] from Last 3 Months or Most Recently Relevant to Health Maintenance Insurance [employer] BLUE MR PB ONLY [employer] BLUE HB ONLY MEDICARE PART A HB ONLY MEDICARE PART B HB ONLY Advance Directives * Full Code (Latest Code [...] 6:31 AM 05/27/2011 10:47 AM Care Teams Hiv Counselor Relationship Specialty Start Date End Date Apryl Fink MD [address] [place] [id number] PCP - General Family Practice 03/01/17
--- OUTSIDE RECORDS SUMMARY | 2025-07-29 22:39 | XMS_ITS | Encounter Summary ---
Author Organization [facility] Address [address], [place] [address] Care Team Providers Care Chief Pharmacist Name Role Phone Apryl Fink MD Primary Care Provider Encounter Details Date Type Department Care Team (Late st Contact Info) Description 11/16/2012 Orders Only [facility] [address] [place] [address] Mariajose Chavira MD [address] [place] [address] [place] [address] Social History Tobacco Use Types Packs/Day Years Used Date Smoking Tobacco: Never Assessed Comments Unknown Sex and Gender Information Value Date Recorded Sex Assigned at Not on file Legal Sex Female 8:20 PM CDT Gender Identity Not on file Sexual Orientation Not on file documented as of this encounter Plan of Treatment Not on file documented as of this encounter Visit Diagnoses Not on filedocumented in this encounter Care Teams Chief Pharmacist Relationship Specialty Start Date End Date Apryl Fink MD [address] [facility] [place] [address] PCP - General 02/12/16 documented as of this encounter
[2025-07-29 22:40] VITALS: BP 118/74; PULSE 71; RESP 18; TEMP 35.7; O2SAT 99
--- NOTE | 2025-07-29 22:49 | CRLHL7_ITS ---
For Patients: As a result of the Century Cures Act, medical imaging exams and procedure reports are released immediately into your electronic medical record. You may view this report before your referring provider. If you have questions, please contact your health care provider. INDICATION: Left ankle pain. TECHNIQUE: Left ankle 3 views. COMPARISON: None. FINDINGS: Mildly displaced fracture of the distal fibular metadiaphysis. No dislocation. Mild widening of the medial clear space. Small joint effusion. Soft tissue swelling. IMPRESSION: 1. Mildly displaced distal fibular fracture. 2. Mild widening of the medial clear space. Dictated by Lj Lei MD @ 07/29/2025 11:39:41 PM (Electronically Signed)
--- NOTE | 2025-07-29 22:50 | CRLHL7_ITS ---
For Patients: As a result of the Cures Act, medical imaging exams and procedure reports are released immediately into your electronic medical record. You may view this report before your referring provider. If you have questions, please contact your health care provider. INDICATION: Fall, hit head. COMPARISON: CT head 11/17/2022. TECHNIQUE: CT of the head without IV contrast. Coronal and sagittal reconstructions. FINDINGS: Brain: No intracranial hemorrhage, abnormal extra-axial fluid collection, or evidence of acute infarct. No mass effect or midline shift. Mild generalized cerebral and cerebellar volume loss. Mild chronic small vessel ischemic disease. Ventricular caliber is within normal limits. Skull base and calvarium: Status post bilateral scleral banding. The visualized orbits are otherwise grossly unremarkable. Mucosal thickening in the inferior aspect of both maxillary sinuses. The mastoid air cells are clear. No acute fracture identified. Soft tissues: Minimal soft tissue swelling in the right anterior frontal scalp. IMPRESSION: 1. No acute intracranial findings. 2. Minimal soft tissue swelling in the right anterior frontal scalp. Please note that all CT scans at this facility use dose modulation, iterative reconstruction, and/or weight-based dosing when appropriate to reduce radiation dose to as low as reasonably achievable. Dictated by Hayde Ornelas MD @ 07/29/2025 11:49:12 PM (Electronically Signed)
--- NOTE | 2025-07-29 23:02 | ED.GENADULT ---
HPI - General Adult General Chief complaint: Fall/Minor Trauma Stated complaint: ankle injury Time Seen by Provider: 07/29/25 22:52 History of Present Illness HPI narrative: pt fell this morning, hit head, no LOC. EMS arrived and pt stayed home . Pt fell again this evening. Pt was non weight bearing on left ankle. pt has edema to left ankle. When assisted to stand, pt BP was 59 systolic for EMS. Pt does have a service mobility canine , Named Deborah Khan . Pt does have bruise to forehead from the fall this morning. Pt not on any blood thinners. 70-year-old woman presenting to the emergency department with concern of left ankle pain. Between 11 and 12 hours prior to presentation to this emergency department had eaten a piece of I believe Cheddar cheese and this set her stomach to rumbling. Concerned that she was going to have some diarrhea got to the bathroom. This did not happen. Went to get up and lost her balance somehow. Was reaching for grab bars. She denies a loss of consciousness. She was little uncertain about where she evidently hit her head but had injured her left ankle collapsing with her feet underneath. EMS did come to evaluate and was able to bear weight at that time. Remained in her home. Subsequently had another fall and is very hard if at all to bear weight now on this left ankle. She was noted to be with lower blood pressure, by EMS, she says at both occurrences but also says that this would not be atypical and is often prone to lightheadedness. Underlying history of spastic quadriplegia and balance problems. Also seizure disorder. Does not appear that a seizure is what has occurred here. She denies neck or back pain. No abdominal pain. Did not note any irregular heartbeats and was not short of breath. No chest pain. Related Data Home Medications ?Medication ?Instructions ?Recorded ?Confirmed zolpidem 12.5 mg tablet,extended mg PO 11/17/22 04/24/25 release,multiphase buspirone 30 mg tablet 30 mg PO BID 11/15/23 04/24/25 lamotrigine 25 mg tablet 25 mg PO BID 11/15/23 04/24/25 venlafaxine 150 mg 150 mg PO BID 11/15/23 04/24/25 capsule,extended release 24 hr (Effexor XR) venlafaxine 37.5 mg 37.5 mg PO QDAY 05/30/24 04/24/25 capsule,extended release 24 hr Previous Rx's ?Medication ?Instructions ?Recorded epinephrine 0.3 mg/0.3 mL 0.3 ml subcut Q5-15M PRN 02/06/25 injection, auto-injector (EpiPen anaphylaxis #2 ea 2-Jose L) pravastatin 40 mg tablet 40 mg PO QDAY #90 tabs 02/07/25 Allergies Allergy/AdvReac Type Severity Reaction Status Date / Time clindamycin Allergy Severe Swelling Verified 04/24/25 14:59 of Lip/Tongue/Throat levothyroxine sodium (From Allergy Severe Swelling Verified 04/24/25 14:59 Synthroid) of Lip/Tongue/Throat nitrofurantoin Allergy Severe Swelling Verified 04/24/25 14:59 of Lip/Tongue/Throat omeprazole Allergy Severe Difficulty Verified 04/24/25 14:59 Breathing sulfate ion Allergy Severe Verified 04/24/25 14:59 amitriptyline Allergy Intermediate Loss of Verified 04/24/25 14:59 Balance cetirizine Allergy Intermediate Fever, Verified 04/24/25 14:59 Coughing, Tachycardia folic acid Allergy Intermediate Insomnia Verified 04/24/25 14:59 hydrochlorothiazide Allergy Intermediate Dizziness Verified 04/24/25 14:59 Penicillins Allergy Mild Rash Verified 04/24/25 14:59 Egg Derived Allergy Unknown Unknown Verified 04/24/25 14:59 morphine Allergy Unknown Unknown Verified 04/24/25 14:59 ranitidine AdvReac Intermediate Headache Verified 04/24/25 14:59 rosuvastatin AdvReac Intermediate Cramping Verified 04/24/25 14:59 of the Muscles Sulfa (Sulfonamide AdvReac Intermediate Fainting Verified 04/24/25 14:59 Antibiotics) ondansetron AdvReac Mild Gastrointestinal Verified 04/24/25 14:59 Upset simvastatin AdvReac Mild Gastrointestinal Verified 04/24/25 14:59 Upset Review of Systems Status of ROS: Reports: 6 or more systems reviewed and unremarkable except as noted in History and below [facility] Medical History Seizure disorder ?G40.909 - Epilepsy, unspecified, not intractable, without status epilepticus (ICD-10) Prediabetes ?R73.03 - Prediabetes (ICD-10) History of echocardiogram ?Z92.89 - Personal history of other medical treatment (ICD-10) Stricture of esophagus (2014) ?K22.2 - Esophageal obstruction (ICD-10) Spastic quadriplegia (2010) ?G82.50 - Quadriplegia, unspecified (ICD-10) Psoriatic arthritis ?L40.50 - Arthropathic psoriasis, unspecified (ICD-10) Hypothyroid ?E03.9 - Hypothyroidism, unspecified (ICD-10) Hyponatremia ?E87.1 - Hypo-osmolality and hyponatremia (ICD-10) Hypertension ?I10 - Essential (primary) hypertension (ICD-10) Food allergy ?Z91.018 - Allergy to other foods (ICD-10) Eosinophilic esophagitis ?K20.0 - Eosinophilic esophagitis (ICD-10) Dyslipidemia ?E78.5 - Hyperlipidemia, unspecified (ICD-10) Dilation of aorta ?I77.819 - Aortic ectasia, unspecified site (ICD-10) Chronic kidney disease, stage III (moderate) ?N18.30 - Chronic kidney disease, stage 3 unspecified (ICD-10) Balance problems ?R26.89 - Other abnormalities of gait and mobility (ICD-10) Anxiety and depression ?F41.9 - Anxiety disorder, unspecified (ICD-10) ?F32.A - Depression, unspecified (ICD-10) Surgical History Bilateral retinal detachment ?H33.23 - Serous retinal detachment, bilateral (ICD-10) History of total hysterectomy with removal of both tubes and ovaries (2005) ?Z90.710 - Acquired absence of both cervix and uterus (ICD-10) ?Z90.722 - Acquired absence of ovaries, bilateral (ICD-10) ?Z90.79 - Acquired absence of other genital organ(s) (ICD-10) History of tonsillectomy ?Z90.89 - Acquired absence of other organs (ICD-10) History of gastric surgery (03/2019) ?Z98.890 - Other specified postprocedural states (ICD-10) History of colonoscopy ?Z98.890 - Other specified postprocedural states (ICD-10) Family History Father Diabetes Paternal Grandmother Diabetes Sister Breast cancer, Onset Age: 68 Mother Pancreatic cancer, Onset Age: 65 Grandfather Heart disease Grandmother Heart disease Brother Asthma Social History Narrative: Single disability to spastic quadriparesis, service dog Suzie Khan Lifetime nonsmoker Financial difficulty Rarely consumes alcohol What is your current living situation?: I presently have a place to live In the past 12 months, utilities in danger of being shut off: no In past 12 months, lack of transportation kept you from medical appts, meetings, work, or getting things needed for daily living: yes In the past 12 mos, have been you worried that your food would run out before you had money to buy more?: sometimes true In the past 12 mos, the food you bought just didn't last and you didn't have money to buy more?: sometimes true Smoking Status: Never smoker Do you use any of these nicotine containing products: None How often do you have a drink containing alcohol: never How often do you have six or more drinks on one occasion: Never AUDIT-C Alcohol total score: 0 Non-prescribed substance use: denies use How often does anyone, including family, friends and others, physically hurt you: never How often does anyone, including family, friends and others, insult or talk down to you: sometimes How often does anyone, including family, friends and others, threaten you with harm: never How often does anyone, including family, friends and others, scream or curse at you: never Health Related Social Needs: food insecurity (Z59.41), transportation insecurity (Z59.82) and Other personal risk factors, not elsewhere classified (Z91.89) Exam Narrative: Exam Narrative: Pleasant. Fully alert. GCS 15. There is a bruise at the right brow maximal dimension of about 4 cm. Defect appreciated. Extraocular movements are full. Eyes are bright consistent with lens implantation. She notes a history of bilateral retinal detachment. Pupils initially I thought were with the left perhaps a mm larger than the right but reassessment appear relatively equal. 3 mm and equal and appropriately reactive. Other than this bruise is mentioned head is atraumatic. Neck is supple. Back is nontender. Lungs are clear. Heart in regular rate and rhythm. Abdomen is soft nontender. There is a very subtle abrasion I think on the left elbow but nontender. The left ankle though is bruising and swelling particularly laterally. She is quite tender to palpation in this area. No medial malleolar tenderness. Navicular tenderness. No base of 5th metatarsal tenderness. Const: Vital Signs, click to edit/add: Vital Signs - 24 hr 07/29/25 22:40 Temperature 96.2 F L Pulse Rate [Right Pulse Oximeter] 71 Respiratory Rate 18 Blood Pressure [Le ft Upper Arm] 118/74 Pulse Oximetry 99 Oxygen Delivery Me thod Room Air Documenting provider has reviewed patient's vital signs: yes Course Vital Signs Vital signs: Initial Vital Signs Temperature 96.2 F L 07/29/25 22:40 Temperature Source Temporal Artery Scan 07/29/25 22:40 Pulse Rate 71 07/29/25 22:40 Pulse Rhythm Regular 07/29/25 22:40 Respiratory Rate 18 07/29/25 22:40 Blood Pressure 118/74 07/29/25 22:40 Blood Pressure Mean 88 07/29/25 22:40 Blood Pressure Position Semi-Fowlers 07/29/25 22:40 Pulse Oximetry 99 07/29/25 22:40 Oxygen Delivery Method Room Air 07/29/25 22:40 Vital Signs Temperature 96.2 F L 07/29/25 22:40 Pulse Rate 71 07/29/25 22:40 Respiratory Rate 18 07/29/25 22:40 Blood Pressure 118/74 07/29/25 22:40 Pulse Oximetry 99 07/29/25 22:40 Oxygen Delivery Method Room Air 07/29/25 22:40 Temperature 96.2 F L 07/29/25 22:40 Pulse Rate 71 07/29/25 22:40 Respiratory Rate 18 07/29/25 22:40 Blood Pressure 118/74 07/29/25 22:40 Pulse Oximetry 99 07/29/25 22:40 Oxygen Delivery Method Room Air 07/29/25 22:40 Medications Administered Medications: Generic Name Dose Route Start Last Admin Trade Name Freq PRN Reason Stop Dose Admin Acetaminophen 1,000 mg 07/30/25 00:19 07/30/25 00:25 Acetaminophen 500 Mg Tablet PO 07/30/25 00:20 1,000 mg ONCE ONE Administration Medical Decision Making MDM Narrative Medical decision making narrative: By the time I am seeing Kathy x-rays and EKG have been obtained. EKG, see below, shows a normal sinus rhythm with some baseline irritability. IV fluids have been propose but she notes herself to be rather hard stick. Furthermore vitals look good upon arrival. It sounds like in the setting of somebody already prone to lightheadedness with balance problems had an episode of vasovagal. Monitor for arrhythmia. X-ray of the left ankle independently reviewed by me shows a oblique mildly displaced fibular fracture with least on 1 of the views, some mild widening the medial aspect of the mortise. INDICATION: Left ankle pain. TECHNIQUE: Left ankle 3 views. COMPARISON: None. FINDINGS: Mildly displaced fracture of the distal fibular metadiaphysis. No dislocation. Mild widening of the medial clear space. Small joint effusion. Soft tissue swelling. IMPRESSION: 1. Mildly displaced distal fibular fracture. 2. Mild widening of the medial clear space. Dictated by Lj Lei MD @ 07/29/2025 11:39:[address] head independent reviewed by me looks to be without acute abnormality. INDICATION: Fall, hit head. COMPARISON: CT head 11/17/2022. TECHNIQUE: CT of the head without IV contrast. Coronal and sagittal reconstructions. FINDINGS: Brain: No intracranial hemorrhage, abnormal extra-axial fluid collection, or evidence of acute infarct. No mass effect or midline shift. Mild generalized cerebral and cerebellar volume loss. Mild chronic small vessel ischemic disease. Ventricular caliber is within normal limits. Skull base and calvarium: Status post bilateral scleral banding. The visualized orbits are otherwise grossly unremarkable. Mucosal thickening in the inferior aspect of both maxillary sinuses. The mastoid air cells are clear. No acute fracture identified. Soft tissues: Minimal soft tissue swelling in the right anterior frontal scalp. IMPRESSION: 1. No acute intracranial findings. 2. Minimal soft tissue swelling in the right anterior frontal scalp. Please note that all CT scans at this facility use dose modulation, iterative reconstruction, and/or weight-based dosing when appropriate to reduce radiation dose to as low as reasonably achievable. Dictated by Hayde Ornelas MD @ 07/29/2025 11:49:12 PM Discussed this case with Orthopedics. I would have some concerns of mortise disruption requiring surgery. They have similar concern and can arrange for outpatient follow-up. Kathy I do not think will be able to manage crutches. Did attempt to place tall walking boot. She is intolerant of this pain. Will place a Fransico Miller splint for some stability but anticipate Orthopedics seeing her here with admission. Discuss this case with hospitalist overnight. Accepting for admission. Chemistries and CBC are pending as requested. Medical Records Medical records reviewed: Yes I reviewed the patient's medical records Lab Data Lab results reviewed: Yes I reviewed the patient's lab results Discharge Plan Discharge Clinical Impression: Fracture of distal end of fibula, Closed head injury Patient Disposition: Admitted As Observation Condition: Stable
[2025-07-30] VITALS (12 sets, daily range): BP systolic 96–149; BP diastolic 52–94; PULSE 60–90; RESP 16–20; TEMP 35.8–36.7; O2SAT 97–99
[2025-07-30] MEDS: ACETAMINOPHEN 500 MG TABLET 1000 MG PO (00:25)
[2025-07-30] MEDS: OxyCODONE/APAP 5-325 TABLET 2 TAB PO (01:13)
[2025-07-30 01:32] LABS: Hematocrit* 39.0 % (33.0-51.0); Hemoglobin* 12.8 gm/dL (12.0-16.0); Immature Granulocytes Abs Auto 0.10 K/uL (0.00-0.30); Immature Granulocytes Pct Auto 0.8 %; Lymphocytes Absolute Auto 1.00 K/uL (0.90-2.90); Mean Corpuscular HGB Conc 33 gm/dL (32-36); Mean Corpuscular Hemoglobin 30 pg (26-34); Mean Corpuscular Volume 91 fL (80-100); RDW Coefficient of Variation % 14.6 % (11.5-15.5); Red Blood Count* 4.28 m/uL (4.00-5.20); White Blood Count* 12.60 K/uL (4.50-11.00)
[2025-07-30 01:36] LABS: Slide Review Reflex No
[2025-07-30 01:47] LABS: Chloride* 95 mmol/L (96-114); Sodium* 128 mmol/L (135-149)
[2025-07-30 01:48] LABS: Potassium* 4.5 mmol/L (3.6-5.1)
[2025-07-30 01:50] LABS: Blood Urea Nitrogen* 32 mg/dL (7-30); Creatinine* 1.1 mg/dL (0.5-1.5); Est. Creatinine Clearance* 43.43; Estimated Glomerular Filt Rate 54 ml/min
[2025-07-30 01:51] LABS: Anion Gap 14 mEq/L (7-15); Calcium* 10.1 mg/dL (8.4-10.6); Carbon Dioxide* 19 mmol/L (20-32); Glucose* 121 mg/dL (60-115)
--- NOTE | 2025-07-30 03:24 | W.PM.TELEH&P ---
Telehealth- H&P: HPI History of Present Illness Date Seen: 07/30/25 Chief complaint: ankle injury Narrative: Kathy Shaw is seen as an Interactive Telehealth visit. Kathy Shaw is a 70 year old female who has a history of spastic quadriplegia and ambulates with a walker. She also has a seizure disorder prediabetes hypothyroidism hypertension SIADH eosinophilic esophagitis stage III chronic kidney disease balance problems, anxiety and depression. She lives in an independent living apartment. She fell this morning while going to her walker and hit her head. 911 was called and the patient was evaluated by EMS. She stayed home. However she fell again this evening after going to use the bathroom. She thinks she had bad cheese and this upset her stomach and she went to the bathroom. She did not have any diarrhea but when she got up from the toilet she lost her balance due to some dizziness she tried to hold onto a bar but fell. She was then unable to bear any weight on the left ankle. This time when EMS came they took her to the emergency room. She says she does have balance problems and has fallen in the past but has not fallen recently. In the emergency room her blood pressure was 118/74 heart rate 71 ox saturation 99% temperature 96.2 ?F. She had a bruise near the right eyebrow. The left ankle was swollen and bruised. She was tender to palpation in the right ankle. CT of the head showed minimal soft tissue swelling in the right anterior frontal scalp but was otherwise negative. Left ankle x-ray showed a mildly displaced distal fibula fracture and mild widening of the medial clear space. EKG showed sinus rhythm with a poor quality baseline. The ER physician discussed case with the on-call orthopedist. The plan was to have the patient discharged home in a CAM boot. She would then follow-up in the clinic and would possibly need surgery for the fracture. However the patient did not think she could ambulate with the boot. Instead Miller splint was placed and the patient is being admitted to observation. After this decision was made labs were ordered showing: White blood cell count 12.6 thousand hemoglobin 12.8 g platelets 278,000 sodium 128 potassium 4.5 chloride 95 CO2 19 BUN 32 creatinine 1.1 glucose 121. Review of Systems Status of ROS: Reports: 10 or more systems reviewed and unremarkable except as noted in History and below PFSH PFSH Medical History Seizure disorder ?G40.909 - Epilepsy, unspecified, not intractable, without status epilepticus (ICD-10) Prediabetes ?R73.03 - Prediabetes (ICD-10) History of echocardiogram ?Z92.89 - Personal history of other medical treatment (ICD-10) Stricture of esophagus (2014) ?K22.2 - Esophageal obstruction (ICD-10) Spastic quadriplegia (2010) ?G82.50 - Quadriplegia, unspecified (ICD-10) Psoriatic arthritis ?L40.50 - Arthropathic psoriasis, unspecified (ICD-10) Hypothyroid ?E03.9 - Hypothyroidism, unspecified (ICD-10) Hyponatremia ?E87.1 - Hypo-osmolality and hyponatremia (ICD-10) Hypertension ?I10 - Essential (primary) hypertension (ICD-10) Food allergy ?Z91.018 - Allergy to other foods (ICD-10) Eosinophilic esophagitis ?K20.0 - Eosinophilic esophagitis (ICD-10) Dyslipidemia ?E78.5 - Hyperlipidemia, unspecified (ICD-10) Dilation of aorta ?I77.819 - Aortic ectasia, unspecified site (ICD-10) Chronic kidney disease, stage III (moderate) ?N18.30 - Chronic kidney disease, stage 3 unspecified (ICD-10) Balance problems ?R26.89 - Other abnormalities of gait and mobility (ICD-10) Anxiety and depression ?F41.9 - Anxiety disorder, unspecified (ICD-10) ?F32.A - Depression, unspecified (ICD-10) Surgical History Bilateral retinal detachment ?H33.23 - Serous retinal detachment, bilateral (ICD-10) History of total hysterectomy with removal of both tubes and ovaries (2005) ?Z90.710 - Acquired absence of both cervix and uterus (ICD-10) ?Z90.722 - Acquired absence of ovaries, bilateral (ICD-10) ?Z90.79 - Acquired absence of other genital organ(s) (ICD-10) History of tonsillectomy ?Z90.89 - Acquired absence of other organs (ICD-10) History of gastric surgery (03/2019) ?Z98.890 - Other specified postprocedural states (ICD-10) History of colonoscopy ?Z98.890 - Other specified postprocedural states (ICD-10) Family History Father Diabetes Paternal Grandmother Diabetes Sister Breast cancer, Onset Age: 68 Mother Pancreatic cancer, Onset Age: 65 Grandfather Heart disease Grandmother Heart disease Brother Asthma Social History Narrative: Single disability to spastic quadriparesis, service dog Suzie B Lifetime nonsmoker Financial difficulty Rarely consumes alcohol What is your current living situation?: I presently have a place to live In the past 12 months, utilities in danger of being shut off: no In past 12 months, lack of transportation kept you from medical appts, meetings, work, or getting things needed for daily living: yes In the past 12 mos, have been you worried that your food would run out before you had money to buy more?: sometimes true In the past 12 mos, the food you bought just didn't last and you didn't have money to buy more?: sometimes true Smoking Status: Never smoker Do you use any of these nicotine containing products: None How often do you have a drink containing alcohol: never How often do you have six or more drinks on one occasion: Never AUDIT-C Alcohol total score: 0 Non-prescribed substance use: denies use How often does anyone, including family, friends and others, physically hurt you: never How often does anyone, including family, friends and others, insult or talk down to you: sometimes How often does anyone, including family, friends and others, threaten you with harm: never How often does anyone, including family, friends and others, scream or curse at you: never Health Related Social Needs: food insecurity (Z59.41), transportation insecurity (Z59.82) and Other personal risk factors, not elsewhere classified (Z91.89) Meds Home Medications and Allergies Home Medications ?Medication ?Instructions ?Recorded ?Confirmed ?Type zolpidem 12.5 mg tablet,extended mg PO 11/17/22 04/24/25 History release,multiphase buspirone 30 mg tablet 30 mg PO BID 11/15/23 04/24/25 History lamotrigine 25 mg tablet 25 mg PO BID 11/15/23 04/24/25 History venlafaxine 150 mg 150 mg PO BID 11/15/23 04/24/25 History capsule,extended release 24 hr (Effexor XR) venlafaxine 37.5 mg 37.5 mg PO QDAY 05/30/24 04/24/25 History capsule,extended release 24 hr epinephrine 0.3 mg/0.3 mL 0.3 ml subcut Q5-15M PRN 02/06/25 04/24/25 Rx injection, auto-injector (EpiPen anaphylaxis #2 ea 2-Jose L) pravastatin 40 mg tablet 40 mg PO QDAY #90 tabs 02/07/25 04/24/25 Rx Allergies Allergy/AdvReac Type Severity Reaction Status Date / Time clindamycin Allergy Severe Swelling Verified 04/24/25 14:59 of Lip/Tongue/Throat levothyroxine sodium (From Allergy Severe Swelling Verified 04/24/25 14:59 Synthroid) of Lip/Tongue/Throat nitrofurantoin Allergy Severe Swelling Verified 04/24/25 14:59 of Lip/Tongue/Throat omeprazole Allergy Severe Difficulty Verified 04/24/25 14:59 Breathing sulfate ion Allergy Severe Verified 04/24/25 14:59 amitriptyline Allergy Intermediate Loss of Verified 04/24/25 14:59 Balance cetirizine Allergy Intermediate Fever, Verified 04/24/25 14:59 Coughing, Tachycardia folic acid Allergy Intermediate Insomnia Verified 04/24/25 14:59 hydrochlorothiazide Allergy Intermediate Dizziness Verified 04/24/25 14:59 Penicillins Allergy Mild Rash Verified 04/24/25 14:59 Egg Derived Allergy Unknown Unknown Verified 04/24/25 14:59 morphine Allergy Unknown Unknown Verified 04/24/25 14:59 ranitidine AdvReac Intermediate Headache Verified 04/24/25 14:59 rosuvastatin AdvReac Intermediate Cramping Verified 04/24/25 14:59 of the Muscles Sulfa (Sulfonamide AdvReac Intermediate Fainting Verified 04/24/25 14:59 Antibiotics) ondansetron AdvReac Mild Gastrointestinal Verified 04/24/25 14:59 Upset simvastatin AdvReac Mild Gastrointestinal Verified 04/24/25 14:59 Upset Exam Narrative Exam Narrative: Physical Exam GENERAL: ?vital signs reviewed, well developed and nourished, in no distress HEART: Regular rate and rhythm without any rubs, murmurs, or gallops. LUNGS: Clear to auscultation bilaterally with good air movement throughout ABDOMEN: Observation from nurse assisted exam, abdomen appears soft, nontender, and nondistended with Positive bowel sounds noted. EXTREMITIES: Left lower extremity has a splint in place which is Evert wrapped. Right lower extremity grossly normal with no significant edema SKIN:? Observed warm and dry with color normal Const Vital Signs, click to edit/add: Vital Signs - 24 hr 07/29/25 22:40 07/30/25 01:40 07/30/25 01:40 Temperature 96.2 F L 98.1 F Pulse Rate [Pulse Oximeter] 85 Pulse Rate [Right Pulse Oximeter] 71 Respiratory Rate 18 18 18 Blood Pressure [Left Upper Arm] 118/74 Blood Pressure [Right Arm] 146/94 H Pulse Oximetry 99 99 99 Oxygen Delivery Method Room Air Room Air Room Air Hospitalist - H&P: Result Labs Labs: Short CBC 07/30/25 Range/Units 01:20 WBC 12.60 H (4.50-11.00) K/uL Hgb 12.8 (12.0-16.0) gm/dL Hct 39.0 (33.0-51.0) % Plt Count 278 (140-440) K/uL BMP 07/30/25 01:20 Sodium 128 L Potassium 4.5 Chloride 95 L Carbon Dioxide 19 L BUN 32 H Creatinine 1.1 Glucose 121 H Calcium 10.1 ECG Attestation: I personally reviewed and interpreted this ECG as follows: ECG interpretation date: 07/30/25 ECG interpretation time: 03:38 Prior ECG tracings: available for review Interpretation: NSR 74 bpm WA 182 ms Poor baseline quality making ST segments difficult to interpret Imaging ankle xray: Radiologist's impression: FINDINGS: Mildly displaced fracture of the distal fibular metadiaphysis. No dislocation. Mild widening of the medial clear space. Small joint effusion. Soft tissue swelling. IMPRESSION: 1. Mildly displaced distal fibular fracture. 2. Mild widening of the medial clear space. CT scan - head: Radiologist's impression: IMPRESSION: 1. No acute intracranial findings. 2. Minimal soft tissue swelling in the right anterior frontal scalp. Assessment and Plan Assessment and plan (1) Fracture of distal end of fibula: Status: Acute (2) Closed head injury: Status: Acute Plan The patient is a 70 year old female who has a history of spastic quadriplegia and ambulates with a walker. She also has a seizure disorder prediabetes hypothyroidism hypertension SIADH eosinophilic esophagitis stage III chronic kidney disease balance problems, anxiety and depression. She lives in an independent living apartment. She fell 2 times today. The first time she hit her head, EMS came and evaluated her and she stayed home. The second time she fell after using the toilet and injured her left ankle. She was unable to bear any weight. X-ray showed a distal fibula fracture. Originally she was going to go home with a CAM walker boot and follow-up in the orthopedic clinic. She possibly needs surgery for the fracture. However she did not feel she could get around in the boot. Therefore a splint was placed and she has been admitted to observation. Admission labs showed mild leukocytosis and also a serum sodium of 128. Distal left fibula fracture The original plan was to have the patient be discharged home in a CAM boot but she did not think she could ambulate with this. She now has a splint in place. Her fracture may require surgery. Continue splint Nonweightbearing on the leg for now Orthopedic consult Analgesics as needed Status post fall with mild closed head injury Head CT just showed a scalp hematoma. Leukocytosis Probably stress response. Repeat in the morning Hyponatremia Na 128 The patient has a history of hyponatremia but sodium is lower than previous values in the chart. The reason is unclear. It could be one of her medications. Repeat in the morning along with the random urine sodium, serum and urine osmolality Spastic quadriplegia Hypothyroidism, not on medication Seizure disorder Hypertension, not on medication Eosinophilic esophagitis Dyslipidemia Stage III chronic kidney disease Depression Continue home medicatons Total Time Spent Total Time Spent: 65 min Telehealth: Statement Statement Telehealth Visit: Today's History and Physical is provided via interactive telehealth by Shai Sam MD.? Patient is located at [facility].? Provider is located at [facility].? Nursing staff assisted with the patient's exam. The visit being done today meets criteria for a telehealth visit and the patient or patient?s parent/guardian is aware the visit is a telehealth visit. Camera Start Time: 02:43 Camera End Time: 02:57
[2025-07-30] MEDS: HYDROCODONE-ACETAMIN 5-325 MG 1 TAB PO (04:00)
[2025-07-30] MEDS: BUSPIRONE 10 MG TABLET 30 MG PO ×3 (04:51→21:26)
[2025-07-30] MEDS: ACETAMINOPHEN 325 MG TABLET 650 MG PO (05:34)
[2025-07-30 06:22] LABS: White Blood Count* 9.82 K/uL (4.50-11.00)
[2025-07-30 06:32] LABS: Chloride* 95 mmol/L (96-114); Potassium* 3.6 mmol/L (3.6-5.1); Sodium* 126 mmol/L (135-149)
--- NOTE | 2025-07-30 06:34 | PC.NURSE ---
End of shift report: Pt arrived to the floor at 0140. AxOx4. Pts L ankle is splinted. Pt ambulated 2A, GB, W to bedside commode. Pt rates pain from a 2-6/10, prn pain meds offered and given with relief. Pt has a service dog named Deborah Khan at the bedside, keno writer took dog out and she goes potty on command to the word ?busy.? Pt had a BM this shift. Pt has a forehead bruise from her fall at home. Pt is resting in bed, call light within reach.?
[2025-07-30 06:35] LABS: Anion Gap 7 mEq/L (7-15); Blood Urea Nitrogen* 31 mg/dL (7-30); Calcium* 9.7 mg/dL (8.4-10.6); Carbon Dioxide* 24 mmol/L (20-32); Creatinine* 1.2 mg/dL (0.5-1.5); Est. Creatinine Clearance* 39.81; Estimated Glomerular Filt Rate 49 ml/min; Glucose* 117 mg/dL (60-115)
[2025-07-30 07:11] LABS: TSH With Reflex to FT4* 12.000 uIU/mL (0.270-4.200)
[2025-07-30 07:46] LABS: Free T4 Free Thyroxine* 0.97 ng/dL (0.70-1.85)
[2025-07-30] MEDS: PRAVASTATIN SODIUM 20 MG TABLET 40 MG PO (08:01)
[2025-07-30] MEDS: SODIUM CHLORIDE 0.9 % (FLUSH) 10 ML SYRINGE 5 ML IVF ×2 (08:59→21:27)
[2025-07-30] MEDS: OxyCODONE/APAP 5-325 TABLET 1 TAB PO ×4 (09:08→23:44)
[2025-07-30] MEDS: ONDANSETRON ODT 4 MG TAB PO (09:16)
--- NOTE | 2025-07-30 09:36 | P.IMPN_ITS ---
Assessment and Plan Assessment and plan (1) Fracture of distal end of fibula: Problem comment: -s/p mechanical ground level fall x2 -x-ray shows Mildly displaced fracture of the distal fibular metadiaphysis. No dislocation. Mild widening of the medial clear space. Small joint effusion. Soft tissue swelling. -splint in place, unable to tolerate CAM walker, NWB LLE (uses walker and has a leashed support dog at baseline) -pain management as needed, elevation -ortho consult - surgical intervention now or in future? -PT to follow ortho consult -high school social science teacher for discharge planning/placement needs pending ortho recommendations Status: Acute (2) Closed head injury: Problem comment: -s/p mechanical ground level fall x2 -CT head without acute intracranial abnormalities -monitor Status: Acute (3) Scalp hematoma: Problem comment: -CT head shows minimal soft tissue swelling in the right anterior frontal scalp -symptomatic cares Status: Acute (4) Spastic quadriplegia: Problem comment: -uses walker at baseline, has a leashed support dog, resides at the [place] Status: Acute (5) Hyponatremia: Problem comment: -sodium 126, down from 128 -history of SIADH, has also been on Effexor for some time -fluid restriction 1500 mL, sodium chloride tabs -follow with labs, serum osmolality pending, random urine sodium and urine osmolality ordered Status: Acute (6) Hypothyroid: Problem comment: Historically, cannot tolerate Synthroid or substitution -TSH 12, baseline 5.4-10.9, T4 0.97 -ongoing management with PCP Status: Chronic (7) Anxiety and depression: Problem comment: -continue Effexor and BuSpar Sees Dr. Lua. Status: Chronic (8) Seizure disorder: Problem comment: -continue lamotrigine, seizure precautions Sees Dr. Haywood, referral to new neurologist 2023 Status: Chronic (9) Dyslipidemia: Problem comment: Continue pravastatin 20 mg daily Status: Chronic Plan Await Ortho recommendations, specifically surgical intervention now or at a later date. Will then need therapies and high school social science teacher to determine level of needs and discharge plan. Total Time Spent Total Time Spent: Today I spent 55 minutes seeing the patient, reviewing Expanse and EPIC notes/diagnostics, discussing the care plan with our care time that includes social work, PT/OT, pharmacy, RT, fci and documenting my impressions and plan in the medical record. Subjective Date Seen: 07/30/25 Interval history: Patient is seen today sitting up in bed. Pain currently adequately controlled. Denies headache or dizziness. Denies chest pain or shortness of breath. Tolerating orals without nausea vomiting. Awaiting orthopedic surgery consultation for management recommendations. Therapies to evaluate thereafter. shared services representative aware. Exam Narrative: Exam Narrative: PHYSICAL EXAM General: Pleasant, conversant, NAD HEENT: Normocephalic, atraumatic, sclera white, EOMI, oral mucosa moist Cardiovascular: RRR, S1S2. No pitting edema Pulmonary: CTA bilaterally without rhonchi, rales, expiratory wheezes. No dyspnea Abdominal: Soft, nondistended, NTTP Neurological: Alert, answering questions appropriately, cranial nerves intact, no focal findings Extremities: LLE splinted. Warm, pulses intact, distal neuro intact Skin: Warm, dry. Const: Vital Signs, click to edit/add: Vital Signs - 24 hr 07/29/25 22:40 07/30/25 01:40 07/30/25 01:40 Temperature 96.2 F L 98.1 F Pulse Rate Pulse Rate [Pulse Oximeter] 85 Pulse Rate [Right Pulse Oximeter] 71 Respiratory Rate 18 18 18 Blood Pressure [Le ft Upper Arm] 118/74 Blood Pressure [Ri ght Arm] 146/94 H Pulse Oximetry 99 99 99 Oxygen Delivery Me thod Room Air Room Air Room Air 07/30/25 05:04 07/30/25 07:55 Temperature 97.9 F Pulse Rate 60 Pulse Rate [Pulse Oximeter] 84 Pulse Rate [Right Pulse Oximeter] Respiratory Rate 18 Blood Pressure [Le ft Upper Arm] Blood Pressure [Ri ght Arm] 149/93 H Pulse Oximetry 98 Oxygen Delivery Me thod Room Air Labs Labs: Laboratory Results - last 24 hr 07/30/25 07/30/25 01:20 06:10 WBC 12.60 H 9.82 RBC 4.28 Hgb 12.8 Hct 39.0 MCV 91 MCH 30 MCHC 33 RDW Coeff of Mally 14.6 Plt Count 278 Neut % (Auto) 86.6 H Lymph % (Auto) 7.9 L Cabell % (Auto) 4.1 Eos % (Auto) 0.3 Baso % (Auto) 0.3 Neut # (Auto) 10.90 H Lymph # (Auto) 1.00 Cabell # (Auto) 0.50 Eos # (Auto) 0.00 Baso # (Auto) 0.00 Abs Immat Gran (auto) 0.10 Imm/Tot Granulo (auto) 0.8 Sodium 128 L 126 L Potassium 4.5 3.6 Chloride 95 L 95 L Carbon Dioxide 19 L 24 Anion Gap 14 7 BUN 32 H 31 H Creatinine 1.1 1.2 Estimated Creat Clear 43.43 39.81 Estimated GFR 54 49 Glucose 121 H 117 H Calcium 10.1 9.7 TSH 12.000 H Free T4 0.97
[2025-07-30] MEDS: FEXOFENADINE 180 MG TABLET PO (09:45)
[2025-07-30] MEDS: VENLAFAXINE ER 75 MG CAPSULE 300 MG PO (09:45)
[2025-07-30] MEDS: SODIUM CHLORIDE 1 GM TABLET PO ×3 (09:54→18:27)
--- NOTE | 2025-07-30 10:53 | CRLHL7_ITS ---
For Patients: As a result of the Century Cures Act, medical imaging exams and procedure reports are released immediately into your electronic medical record. You may view this report before your referring provider. If you have questions, please contact your health care provider. Indication: Fourth metatarsal fracture Comparison: Three views left ankle July 29, 2025 Technique: AP, lateral, and oblique views left foot were obtained. Findings: There is a minimally displaced fracture of the distal 4th metatarsal. No other displaced injuries are identified. Severe hammertoe changes of the 2nd through 5th digits. Moderate distal forefoot soft tissue swelling. Impression: Minimally displaced fracture of the distal 4th metatarsal with moderate dorsal midfoot soft tissue swelling. Dictated by Trenton Roberto MD @ 07/30/2025 11:53:17 AM (Electronically Signed)
[2025-07-30 11:58] LABS: Sodium Urine Random* 17
[2025-07-30] MEDS: 0.9 % SODIUM CHLORIDE 500 ML 500 ML 250 ML IV (12:20)
--- NOTE | 2025-07-30 14:50 | PC.NURSE ---
End of Shift: Pt. is AOx4. VSS. Pt. has service dog present bedside. Pt. expresses pain ; pain meds given. Pt. refused pain med options, see orders and EMAR. Pt. L leg edematous and tender to touch.Pt. reported dizziness upon standing and w/ pivot to commode. PA notified; bolus ordered. Pt. reports SOB and pain; EKG performed per PA orders. Results given to PA. Pt. expressed SOB when NS given. RN stopped infusion; notified PA. Pt. education provided on pain measures and medications, allergy S & S. Pt. reported nausea; meds given. See EMAR. Pt. tolerates regular diet with limitations due to allergies and intolerances. Fluid restriction. Pt. education provided for fluid restrictions.
--- NOTE | 2025-07-30 15:21 | PC.SOCIAL ---
Discharge planning: anode worker met with the pt today to discuss discharge planning. Pt is anticipating that she will need short-term rehab after surgery/this hospital stay. anode worker provided the pt with the list of Area Detention Facilities for her reference. The pt is [facility]. The pt states that her service dog should be able to stay with her sister while she is recovering in the hospital and in rehab. The pt has Medicare for primary, so will require a three night inpatient hospital stay to have short-term rehab coverage. Pt was made inpatient as of today 07/30/25 due to her low sodium level. Tonight will be her first inpatient night. Surgery is planned for tomorrow 07/31. Social work to follow-up as needed.
[2025-07-30 18:34] LABS: Sodium* 123 mmol/L (135-149)
--- NOTE | 2025-07-30 18:39 | PC.NURSE ---
Nursing Care Hours: [id number] Pt this shift calm, alert and oriented. Pt not tolerating pivot transfers and having difficulty remaining NWB. Pt becomes SOB, c/o dizziness and lightheadedness and becomes diaphoretic. BP remained stable after transfer when back in bed. Pain increased in left ankle, radiating to calf and up to knee per pt. Pain also starting in R calf per pt. Added ice pack with little relief. Discussed SCD but pt requesting to wait until PO pain meds start working. Noticeable trembling during medical health researcher. Perinatal Coordinator discussed using Anaid Steady to get up for dinner but pt refused to get up even hour after pain meds given. Additional PO pain meds added and administered. Pt compliant with fluid restriction. Pt reports intact CMS to left foot. Raised to two pillows. Pt repositioned to R side.
--- NOTE | 2025-07-30 19:24 | W.PM.CROSSCO ---
Subjective Subjective Time Seen by Provider: 19:20 Date Seen: 07/30/25 Principal diagnosis: hyponatremia, fibula fracture Interval history: Kathy's sodium level continues to decline (now at 123) this evening despite FR of 1500cc and salt tabs 1g TID. She reported to day shift provider that she did not tolerate NS bolus, so this was not reattempted. I saw Kathy this evening and discussed with her my concern that if her sodium continues to decline, it puts her at risk for nausea, imbalance, confusion and even seizure or . I recommended hypertonic saline infusion and recheck of sodium level in four hours. She was agreeable with this plan. She also noted that the oxycodone has started to help with her pain, but it is still present to some degree. Objective Objective Data Details: Reclined in the bed. AAO to self and situation. No pallor or jaundice. Assessment and Plan Assessment and plan (1) Hyponatremia: Problem comment: -sodium 1268 -> 126 ->123 -history of SIADH, has also been on Effexor for some time, patient reiterated this to me when we discussed her current low and declining sodium level -I have reviewed possible causes, differential is long, however, I note that she is not on any diuretics. I also note that nurses report she is diaphoretic at times. I think most likely causes are malnutrition, pain, dehydration, and possible adrenal insufficiency complicated by CKD stage 3b. -serum osmolality pending, random urine sodium and urine osmolality pending -For now I will do a trial of hypertonic saline and recheck sodium level after that, in 4 hours. Continue fluid restriction 1500 mL, sodium chloride tabs. -If symptomatic hypotension arises, will consider NS or LR bolus for dehydration and a dose of solumedrol for possible adrenal crisis/insufficiency. I am holding off on that for now due to patient preference based on her perceived reaction to NS bolus earlier today. Status: Acute (2) Fracture of distal end of fibula: Problem comment: -s/p mechanical ground level fall x2 -x-ray shows Mildly displaced fracture of the distal fibular metadiaphysis. No dislocation. Mild widening of the medial clear space. Small joint effusion. Soft tissue swelling. -splint in place, unable to tolerate CAM walker, NWB LLE (uses walker and has a leashed support dog at baseline) -pain management as needed, elevation -ortho consult - surgical intervention now or in future? -PT to follow ortho consult -7th grade social studies teacher for discharge planning/placement needs pending ortho recommendations Status: Acute (3) Hx of anaphylaxis: Status: Chronic (4) Chronic kidney disease, stage III (moderate): Problem comment: Likely due to NSAID use. Sees [place] [employer] senior officer Dr. Jordon lin. Status: Chronic (5) Seizure disorder: Problem comment: -continue lamotrigine, seizure precautions Sees Dr. Haywood, referral to new neurologist 2023 Status: Chronic
[2025-07-30] MEDS: 3 % SODIUM CHLORIDE 500 ml 100 ML 33.33 ML IV (20:04)
[2025-07-30] MEDS: VENLAFAXINE ER 75 MG CAPSULE PO (21:26)
[2025-07-31] VITALS (28 sets, daily range): BP systolic 93–156; BP diastolic 50–89; PULSE 61–83; RESP 14–20; TEMP 36.5–37.2; O2SAT 85–100
[2025-07-31 01:39] LABS: Sodium* 124 mmol/L (135-149)
[2025-07-31] MEDS: OxyCODONE/APAP 5-325 TABLET 1 TAB PO (05:44)
[2025-07-31 06:35] LABS: Hematocrit* 33.2 % (33.0-51.0); Hemoglobin* 10.8 gm/dL (12.0-16.0); Mean Corpuscular HGB Conc 33 gm/dL (32-36); Mean Corpuscular Hemoglobin 30 pg (26-34); Mean Corpuscular Volume 92 fL (80-100); Red Blood Count* 3.62 m/uL (4.00-5.20); White Blood Count* 8.75 K/uL (4.50-11.00)
[2025-07-31 06:40] LABS: Slide Review Reflex No
[2025-07-31 06:53] LABS: Chloride* 98 mmol/L (96-114); Potassium* 3.9 mmol/L (3.6-5.1); Sodium* 128 mmol/L (135-149)
[2025-07-31 06:56] LABS: Anion Gap 7 mEq/L (7-15); Blood Urea Nitrogen* 22 mg/dL (7-30); Carbon Dioxide* 23 mmol/L (20-32); Creatinine* 1.2 mg/dL (0.5-1.5); Est. Creatinine Clearance* 39.81; Estimated Glomerular Filt Rate 49 ml/min
[2025-07-31 06:57] LABS: Calcium* 8.9 mg/dL (8.4-10.6); Glucose* 125 mg/dL (60-115)
--- NOTE | 2025-07-31 07:04 | PC.NURSE ---
End of shift report [id number]: AxOx4. Pts L ankle is splinted. Pt ambulated 2A, GB, W with the piero steady to the bedside commode. Pt is NWB on MIGUEL ÁNGEL. Pt has been NPO since 0000. Pt has a forehead bruise from her fall at home. Pt is resting in bed, call light within reach.?
[2025-07-31] MEDS: VENLAFAXINE ER 75 MG CAPSULE 300 MG PO (08:56)
[2025-07-31] MEDS: PRAVASTATIN SODIUM 20 MG TABLET 40 MG PO (08:56)
[2025-07-31] MEDS: BUSPIRONE 10 MG TABLET 30 MG PO ×2 (08:56→21:24)
[2025-07-31] MEDS: SODIUM CHLORIDE 1 GM TABLET PO ×2 (08:56→19:45)
[2025-07-31] MEDS: FEXOFENADINE 180 MG TABLET PO (08:56)
--- NOTE | 2025-07-31 11:58 | PM.IMPN1 ---
Assessment and Plan Assessment and plan (1) Fracture of distal end of fibula: Problem comment: -s/p mechanical ground level fall x2 -x-ray shows Mildly displaced fracture of the distal fibular metadiaphysis. No dislocation. Mild widening of the medial clear space. Small joint effusion. Soft tissue swelling. -splint in place, unable to tolerate CAM walker, NWB LLE (uses walker and has a leashed support dog at baseline) -pain management as needed, elevation -ortho consult - surgical intervention now or in future? -PT to follow ortho consult -web content & social media manager for discharge planning/placement needs pending ortho recommendations 08/01 to OR today with Dr. Cardoza. PT/OT postoperatively. career services assistant for discharge planning/placement needs Status: Acute (2) Closed head injury: Problem comment: -s/p mechanical ground level fall x2 -CT head without acute intracranial abnormalities -monitor Status: Acute (3) Scalp hematoma: Problem comment: -CT head shows minimal soft tissue swelling in the right anterior frontal scalp -symptomatic cares Status: Acute (4) Spastic quadriplegia: Problem comment: -uses walker at baseline, has a leashed support dog, resides at the [facility] Status: Acute (5) Hyponatremia: Problem comment: -sodium 1268 -> 126 ->123 -history of SIADH, has also been on Effexor for some time, patient reiterated this to me when we discussed her current low and declining sodium level -I have reviewed possible causes, differential is long, however, I note that she is not on any diuretics. I also note that nurses report she is diaphoretic at times. I think most likely causes are malnutrition, pain, dehydration, and possible adrenal insufficiency complicated by CKD stage 3b. -serum osmolality pending, random urine sodium and urine osmolality pending -For now I will do a trial of hypertonic saline and recheck sodium level after that, in 4 hours. Continue fluid restriction 1500 mL, sodium chloride tabs. -If symptomatic hypotension arises, will consider NS or LR bolus for dehydration and a dose of solumedrol for possible adrenal crisis/insufficiency. I am holding off on that for now due to patient preference based on her perceived reaction to NS bolus earlier today. 08/01 sodium improved to 128 following a saline bolus. Had attempted to start fluids earlier in the day yesterday however patient was concerned she was having an allergic reaction to the saline so opted to stop infusion. Later today tolerated saline without adverse effects. Status: Acute (6) Hypothyroid: Problem comment: Historically, cannot tolerate Synthroid or substitution -TSH 12, baseline 5.4-10.9, T4 0.97 -ongoing management with PCP Status: Chronic (7) Anxiety and depression: Problem comment: -continue Effexor and BuSpar Sees Dr. Lua. Status: Chronic (8) Seizure disorder: Problem comment: -continue lamotrigine, seizure precautions Sees Dr. Haywood, referral to new neurologist 2023 Status: Chronic (9) Dyslipidemia: Problem comment: Continue pravastatin 20 mg daily Status: Chronic (10) Multiple drug allergies: Problem comment: Allergies verses adverse side effects noted Status: Acute Plan To OR this afternoon. Will need SNF/TCU post operatively Total Time Spent Total Time Spent: Today I spent 55 minutes seeing the patient, reviewing Expanse and EPIC notes/diagnostics, discussing the care plan with our care time that includes social work, PT/OT, pharmacy, RT, retirement and documenting my impressions and plan in the medical record. Subjective Date Seen: 07/31/25 Interval history: Patient is seen today sitting up in a chair. She reports her pain 6/10 currently. Denies headache or dizziness. No chest pain. Currently NPO, awaiting surgery this afternoon. Has remained afebrile, vitally stable. Sodium has improved to 128. Notably, patient has multiple allergies versus adverse side effects to several medications. Charge nurse has reviewed these with her and updated data. Exam Narrative: Exam Narrative: PHYSICAL EXAM General: Pleasant, conversant, NAD HEENT: Normocephalic, atraumatic, sclera white, EOMI, oral mucosa moist Cardiovascular: RRR, S1S2. No pitting edema Pulmonary: CTA bilaterally without rhonchi, rales, expiratory wheezes. No dyspnea Abdominal: Soft, nondistended, NTTP Neurological: Alert, answering questions appropriately, cranial nerves intact, no focal findings Extremities: LLE splinted. Warm, pulses intact, distal neuro intact Skin: Warm, dry. Const: Vital Signs, click to edit/add: Vital Signs - 24 hr 07/30/25 12:41 07/30/25 15:00 07/30/25 15:00 Temperature 97.6 F 97.8 F Pulse Rate Pulse Rate [Pulse Oximeter] 90 72 72 Respiratory Rate 16 18 18 Blood Pressure [Ri ght Arm] 127/70 128/65 Pulse Oximetry 97 98 Oxygen Delivery Me thod Room Air Room Air 07/30/25 16:00 07/30/25 19:00 07/30/25 19:40 Temperature 97.5 F L Pulse Rate 77 Pulse Rate [Pulse Oximeter] 81 Respiratory Rate 20 20 Blood Pressure [Ri ght Arm] 96/60 Pulse Oximetry 97 Oxygen Delivery Me thod Room Air 07/30/25 20:23 07/30/25 23:00 07/30/25 23:35 Temperature 96.5 F L Pulse Rate 66 Pulse Rate [Pulse Oximeter] 71 Respiratory Rate 20 Blood Pressure [Ri ght Arm] 109/52 L 125/61 Pulse Oximetry 97 Oxygen Delivery Me thod Room Air 07/31/25 03:00 07/31/25 07:07 07/31/25 07:45 Temperature 97.7 F 97.9 F Pulse Rate 63 Pulse Rate [Pulse Oximeter] 67 67 Respiratory Rate 18 18 Blood Pressure [Ri ght Arm] 128/63 113/55 L Pulse Oximetry 100 97 Oxygen Delivery Me thod Room Air Room Air 07/31/25 07:45 07/31/25 11:00 Temperature 98.0 F Pulse Rate Pulse Rate [Pulse Oximeter] 67 71 Respiratory Rate 18 18 Blood Pressure [Ri ght Arm] 139/50 L Pulse Oximetry 100 Oxygen Delivery Me thod Room Air Labs Labs: Laboratory Results - last 24 hr 07/30/25 07/30/25 07/31/25 18:10 Unknown 00:55 WBC RBC Hgb Hct MCV MCH MCHC Plt Count Sodium 123 L* 124 L* Potassium Chloride Carbon Dioxide Anion Gap BUN Creatinine Estimated Creat Clear Estimated GFR Glucose Calcium Ur Random Sodium 17 07/31/25 06:05 WBC 8.75 RBC 3.62 L Hgb 10.8 L Hct 33.2 MCV 92 MCH 30 MCHC 33 Plt Count 325 Sodium 128 L Potassium 3.9 Chloride 98 Carbon Dioxide 23 Anion Gap 7 BUN 22 Creatinine 1.2 Estimated Creat Clear 39.81 Estimated GFR 49 Glucose 125 H Calcium 8.9 Ur Random Sodium
[2025-07-31] MEDS: MIDAZOLAM HCL 1 MG/ML inj IVP (12:40)
--- NOTE | 2025-07-31 12:49 | SUR.PREOP ---
Time out completed in preop for block on left lower leg. RN and Dr. Carty and Violeta MCKINNEY present. verified correct patient and location at 1235
--- NOTE | 2025-07-31 14:00 | W.PM.NB ---
Nerve Block Nerve Block Time Seen by Provider: 12:50 Date Seen: 07/31/25 Type of block requested by surgeon for post-operative analgesia: popliteal Side: left Time out performed: Yes Verification of patient name: Yes Verification of date of : Yes Site marking: site marked Name of person performing procedure: Carloz Continuous monitoring Was continuous monitoring of O2 sat, B/P, monitoring analyst, recorded every 15 minutes?: Yes Procedure Checklist: sterile prep, needles and gloves Ultrasound guided. Images saved: Yes Medications given in 5ml increments after negative aspiration: Marcaine %: 0.25 mL: 20 Needle gauge: 20 Patient tolerated procedure well: Yes Additional comments: Needle noted adjacent to nerve Block Charges Block Charge (with Pro Fee): Sciatic Nerve Use of Ultrasound Machine for Block: Yes- US Guidance/pain block
--- NOTE | 2025-07-31 15:16 | P.ANES_ITS ---
Anesthesia Charges Start Date/Time Anesthesia Start Date: 07/31/25 Anesthesia Start Time: 12:56 Stop Date/Time Anesthesia Stop Date: 07/31/25 Anesthesia Stop Time: 15:18 Coding CPT Codes CPT Codes: ANESTH LOWER LEG BONE SURG - 08068 ([id number]) P3 - PATIENT W/SEVERE SYS DISEASE, QK - SECURITIES RESEARCH ANALYST 2-4 CNCRNT ANES PROC, QX - MORTGAGE ORIGINATOR SVC W/ MD MED DIRECTION
--- NOTE | 2025-07-31 15:16 | W.ANESCHARGE ---
Anesthesia Charges Start Date/Time Anesthesia Start Date: 07/31/25 Anesthesia Start Time: 12:56 Stop Date/Time Anesthesia Stop Date: 07/31/25 Anesthesia Stop Time: 15:18 Coding CPT Codes CPT Codes: ANESTH LOWER LEG BONE SURG - 03448 ([id number]) P3 - PATIENT W/SEVERE SYS DISEASE, QK - RN EMERGENCY 2-4 CNCRNT ANES PROC, QX - ORDER TRACER SVC W/ MD MED DIRECTION
--- NOTE | 2025-07-31 15:24 | PM.ORPRC ---
Procedure Note Date of procedure: 07/31/25 Procedure: PREOPERATIVE DIAGNOSIS: Left ankle Luo C fracture, left foot 4th metatarsal fractures POSTOPERATIVE DIAGNOSIS: Left ankle Luo C fracture, left foot 4th metatarsal fractures NAME OF OPERATION: ORIF left ankle fracture, closed treatment left foot 4th metatarsal fractures SURGEON: Soren Cardoza MD APPIAN BPM DEVELOPER: Pearl Samuel PA-C ANESTHESIA: Spinal plus popliteal block ESTIMATED BLOOD LOSS: 10 mL COMPLICATIONS: None SPECIMENS: None DRAINS: None PREOPERATIVE ANTIBIOTICS: Ancef 2 g INDICATIONS: The patient is a 70-year-old who sustained a left ankle fracture and 4th metatarsal fractures. ORIF was recommended. The risks, benefits and expected outcomes were discussed in detail. These included but were not limited to: Infection, bleeding, injury to blood vessel or nerve, venous thromboembolism. All questions were answered to their satisfaction. Use of an corporate law assistant was necessary throughout the case for patient positioning and safety, soft tissue retraction and closure. Provider Operated C-arm: C-arm fluoroscopy operated by Soren Cardoza MD for fracture reduction and implant placement. Two hundred twenty-nine C-arm spot images were obtained. Fluoroscopy time was 4 minutes and 0 seconds. PROCEDURE: A popliteal block was placed by anesthesia. Spinal anesthesia was administered. The lower extremity was prepped and draped in the usual sterile fashion. A stab incision was made over the anterior and posterior aspect of the distal fragment. A Luo reduction clamp was placed to regain length. A separate lobster claw reduction clamp was placed through separate percutaneous incisions at the fracture site, to improve the reduction. The guide pin was placed in the center of the distal fragment of the fibula, percutaneously. Its placement was confirmed with the image intensifier in multiple views. A stab incision was made around the guide pin. The opening reamer was used, past the fracture site. The 3.2 mm Reamer was Used in the proximal fragment. We placed the Arthrex 3 mm x 130 mm Intramedullary nail. The talons were deployed. We placed 2 screws in the distal fragment. A 3.5 mm x 56 mm and 3.5 mm x 52 mm syndesmotic screw were placed. The more proximal screw nicely reduced the fibula fracture. The carpenters helper was removed, the end cap was placed. This provides an excellent reduction of the fibula with excellent fixation. Implants were imaged in the AP, mortise and lateral views and were felt to be well placed with an excellent reduction. The talus is nicely reduced under the tibial plafond, the syndesmosis is reduced. The wounds were irrigated with normal saline. The corporate law assistant closed the skin with a 3-0 nylon in a simple interrupted fashion. The corporate law assistant placed a dry dressing and short leg Fransico Miller splint. Sponge and needle counts were correct x 2. The patient tolerated the procedure well. There were no apparent complications. They were carefully transferred to the hospital bed and taken to the postanesthesia care unit in satisfactory condition. PLAN: The patient will be discharged to a halfway facility, once placement is made. They will remain strict nonweightbearing on the lower extremity. They will continue to work on ice and elevation. They will continue to work on ice and elevation. They will follow up in the office in 2 weeks for a wound check and three views of the ankle out of the splint, prior to being seen, in preparation for a short-leg, nonweightbearing waterproof cast. At 6 weeks postop, we will plan to place her in a cam walker and allow weight-bearing as tolerates, with physical therapy for range of motion. We will plan to take her back to the operating room at 12 weeks for syndesmotic screw removal.
[2025-07-31] MEDS: LACTATED RINGERS 1000 ML 1,000 ML 100 ML IV (15:37)
--- NOTE | 2025-07-31 15:40 | PM.ORCN ---
History of Present Illness HPI Date Seen: 07/31/25 Chief complaint: ankle injury Narrative: The patient is a 70-year-old community ambulator with a walker, primarily for balance. She fell, her but landing on her heels. She sustained left foot 4th metatarsal fractures and a left ankle fracture. She was admitted for definitive care and placement. Review of Systems Narrative: The patient denies: Fever, night sweats, shaking chills, nausea, vomiting, diarrhea, chest pain, chest pressure, shortness of breath, no rash, no change in hearing or vision, no issues with bleeding or clotting. 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 - Quadriplegia, unspecified (ICD-10) Hyponatremia ?E87.1 - Hypo-osmolality and hyponatremia (ICD-10) Seizure disorder ?G40.909 - Epilepsy, unspecified, not intractable, without status epilepticus (ICD-10) Prediabetes ?R73.03 - Prediabetes (ICD-10) History of echocardiogram ?Z92.89 - Personal history of other medical treatment (ICD-10) Stricture of esophagus (2014) ?K22.2 - Esophageal obstruction (ICD-10) Spastic quadriplegia (2010) ?G82.50 - Quadriplegia, unspecified (ICD-10) Psoriatic arthritis ?L40.50 - Arthropathic psoriasis, unspecified (ICD-10) Hypothyroid ?E03.9 - Hypothyroidism, unspecified (ICD-10) Hypertension ?I10 - Essential (primary) hypertension (ICD-10) Food allergy ?Z91.018 - Allergy to other foods (ICD-10) Eosinophilic esophagitis ?K20.0 - Eosinophilic esophagitis (ICD-10) Dyslipidemia ?E78.5 - Hyperlipidemia, unspecified (ICD-10) Dilation of aorta ?I77.819 - Aortic ectasia, unspecified site (ICD-10) Chronic kidney disease, stage III (moderate) ?N18.30 - Chronic kidney disease, stage 3 unspecified (ICD-10) Balance problems ?R26.89 - Other abnormalities of gait and mobility (ICD-10) Anxiety and depression ?F41.9 - Anxiety disorder, unspecified (ICD-10) ?F32.A - Depression, unspecified (ICD-10) Surgical History Bilateral retinal detachment ?H33.23 - Serous retinal detachment, bilateral (ICD-10) History of total hysterectomy with removal of both tubes and ovaries (2005) ?Z90.710 - Acquired absence of both cervix and uterus (ICD-10) ?Z90.722 - Acquired absence of ovaries, bilateral (ICD-10) ?Z90.79 - Acquired absence of other genital organ(s) (ICD-10) History of tonsillectomy ?Z90.89 - Acquired absence of other organs (ICD-10) History of gastric surgery (03/2019) ?Z98.890 - Other specified postprocedural states (ICD-10) History of colonoscopy ?Z98.890 - Other specified postprocedural states (ICD-10) Family History Father Diabetes Paternal Grandmother Diabetes Sister Breast cancer, Onset Age: 68 Mother Pancreatic cancer, Onset Age: 65 Grandfather Heart disease Grandmother Heart disease Brother Asthma Social History Narrative: Single disability to spastic quadriparesis, service dog Suzie B Lifetime nonsmoker Financial difficulty Rarely consumes alcohol What is your current living situation?: I presently have a place to live Problems where you live: mold Problems where you live details: pt states I think mold In the past 12 months, utilities in danger of being shut off: no In past 12 months, lack of transportation kept you from medical appts, meetings, work, or getting things needed for daily living: yes In the past 12 mos, have been you worried that your food would run out before you had money to buy more?: sometimes true In the past 12 mos, the food you bought just didn't last and you didn't have money to buy more?: sometimes true Highest level of school completed/degree received: some college, no degree Smoking Status: Never smoker Do you use any of these nicotine containing products: None How often do you have a drink containing alcohol: never How often do you have six or more drinks on one occasion: Never AUDIT-C Alcohol total score: 0 Non-prescribed substance use: denies use How often does anyone, including family, friends and others, physically hurt you: never How often does anyone, including family, friends and others, insult or talk down to you: sometimes How often does anyone, including family, friends and others, threaten you with harm: never How often does anyone, including family, friends and others, scream or curse at you: never Health Related Social Needs: Inadequate housing (Z59.1), food insecurity (Z59.41), transportation insecurity (Z59.82) and Other personal risk factors, not elsewhere classified (Z91.89) Meds Home Medications and Allergies Home Medications ?Medication ?Instructions ?Recorded ?Confirmed ?Type zolpidem 12.5 mg tablet,extended 12.5 mg PO HS 11/17/22 07/30/25 History release,multiphase buspirone 30 mg tablet 30 mg PO BID 11/15/23 07/30/25 History venlafaxine 150 mg 300 mg PO QAM 11/15/23 07/30/25 History capsule,extended release 24 hr (Effexor XR) epinephrine 0.3 mg/0.3 mL 0.3 ml subcut Q5-15M PRN 02/06/25 07/30/25 Rx injection, auto-injector (EpiPen anaphylaxis #2 ea 2-Jose L) lamotrigine 200 mg tablet 300 mg PO QPM 07/30/25 07/30/25 History pravastatin 40 mg tablet 40 mg PO DAILY 07/30/25 07/30/25 History venlafaxine 75 mg capsule,extended 75 mg PO HS 07/30/25 07/30/25 History release 24 hr Allergies Allergy/AdvReac Type Severity Reaction Status Date / Time clindamycin Allergy Severe Swelling Verified 07/31/25 11:18 of Lip/Tongue/Throat levothyroxine sodium (From Allergy Severe Swelling Verified 07/31/25 11:18 Synthroid) of Lip/Tongue/Throat nitrofurantoin Allergy Severe Swelling Verified 07/31/25 11:18 of Lip/Tongue/Throat omeprazole Allergy Severe Difficulty Verified 07/31/25 11:18 Breathing amitriptyline Allergy Intermediate Loss of Verified 07/31/25 11:18 Balance cetirizine Allergy Intermediate Fever, Verified 07/31/25 11:18 Coughing, Tachycardia Egg Derived Allergy Intermediate Vomiting Verified 07/31/25 11:18 sulfate ion Allergy Intermediate Swelling Verified 07/31/25 11:18 of Lip/Tongue/Throat Penicillins Allergy Mild Rash Verified 07/31/25 11:18 pork derived (porcine) Allergy Mild Unknown Verified 07/31/25 11:18 folic acid AdvReac Intermediate Insomnia Verified 07/31/25 11:18 rosuvastatin AdvReac Intermediate Cramping Verified 07/31/25 11:18 of the Muscles Sulfa (Sulfonamide AdvReac Intermediate Fainting Verified 07/31/25 11:18 Antibiotics) hydrochlorothiazide AdvReac Mild Dizziness Verified 07/31/25 11:18 ondansetron AdvReac Mild Gastrointestinal Verified 07/31/25 11:18 Upset ranitidine AdvReac Mild Headache Verified 07/31/25 11:18 simvastatin AdvReac Mild Gastrointestinal Verified 07/31/25 11:18 Upset grains Allergy Unknown Unknown Uncoded 07/31/25 11:19 Tomato (Solanum Lycopersicum) Allergy Unknown Unknown Uncoded 07/31/25 11:18 Hydromorphone (Bulk) AdvReac Mild Unknown Uncoded 07/31/25 11:18 Ortho Exam Narrative Exam Narrative: The patient is examined supine in the hospital bed. The left lower extremity is in a stirrup splint. CMS to the foot is normal. Const Vital Signs, click to edit/add: Vital Signs - 24 hr 07/30/25 16:00 07/30/25 19:00 07/30/25 19:40 Temperature 97.5 F L Pulse Rate 77 Pulse Rate [Pulse Oximeter] 81 Respiratory Rate 20 20 Blood Pressure [Right Arm] 96/60 Pulse Oximetry 97 Oxygen Delivery Method Room Air 07/30/25 20:23 07/30/25 23:00 07/30/25 23:35 Temperature 96.5 F L Pulse Rate 66 Pulse Rate [Pulse Oximeter] 71 Respiratory Rate 20 Blood Pressure [Right Arm] 109/52 L 125/61 Pulse Oximetry 97 Oxygen Delivery Method Room Air 07/31/25 03:00 07/31/25 07:07 07/31/25 07:45 Temperature 97.7 F 97.9 F Pulse Rate 63 Pulse Rate [Pulse Oximeter] 67 67 Respiratory Rate 18 18 Blood Pressure [Right Arm] 128/63 113/55 L Pulse Oximetry 100 97 Oxygen Delivery Method Room Air Room Air 07/31/25 07:45 07/31/25 11:00 Temperature 98.0 F Pulse Rate Pulse Rate [Pulse Oximeter] 67 71 Respiratory Rate 18 18 Blood Pressure [Right Arm] 139/50 L Pulse Oximetry 100 Oxygen Delivery Method Room Air Results Labs Labs: Laboratory Results - last 48 hr 07/30/25 07/30/25 07/30/25 01:20 06:10 18:10 WBC 12.60 H 9.82 RBC 4.28 Hgb 12.8 Hct 39.0 MCV 91 MCH 30 MCHC 33 RDW Coeff of Mally 14.6 Plt Count 278 Neut % (Auto) 86.6 H Lymph % (Auto) 7.9 L [place] % (Auto) 4.1 Eos % (Auto) 0.3 Baso % (Auto) 0.3 Neut # (Auto) 10.90 H Lymph # (Auto) 1.00 [place] # (Auto) 0.50 Eos # (Auto) 0.00 Baso # (Auto) 0.00 Abs Immat Gran (auto) 0.10 Imm/Tot Granulo (auto) 0.8 Sodium 128 L 126 L 123 L* Potassium 4.5 3.6 Chloride 95 L 95 L Carbon Dioxide 19 L 24 Anion Gap 14 7 BUN 32 H 31 H Creatinine 1.1 1.2 Estimated Creat Clear 43.43 39.81 Estimated GFR 54 49 Glucose 121 H 117 H Calcium 10.1 9.7 TSH 12.000 H Free T4 0.97 Ur Random Sodium 07/30/25 07/31/25 07/31/25 Unknown 00:55 06:05 WBC 8.75 RBC 3.62 L Hgb 10.8 L Hct 33.2 MCV 92 MCH 30 MCHC 33 RDW Coeff of Mally Plt Count 325 Neut % (Auto) Lymph % (Auto) [place] % (Auto) Eos % (Auto) Baso % (Auto) Neut # (Auto) Lymph # (Auto) [place] # (Auto) Eos # (Auto) Baso # (Auto) Abs Immat Gran (auto) Imm/Tot Granulo (auto) Sodium 124 L* 128 L Potassium 3.9 Chloride 98 Carbon Dioxide 23 Anion Gap 7 BUN 22 Creatinine 1.2 Estimated Creat Clear 39.81 Estimated GFR 49 Glucose 125 H Calcium 8.9 TSH Free T4 Ur Random Sodium 17 Diagnostic results Additional Comments: Three views of the left ankle and left foot are reviewed. These show a high Luo B, low Luo C fibula fracture. There is an oblique fracture of the 4th metatarsal neck and an extra-articular oblique fracture of the base of the 4th metatarsal, which are reasonably well aligned. Assessment and Plan Assessment and plan (1) Fracture of distal end of fibula: Problem comment: -s/p mechanical ground level fall x2 -x-ray shows Mildly displaced fracture of the distal fibular metadiaphysis. No dislocation. Mild widening of the medial clear space. Small joint effusion. Soft tissue swelling. -splint in place, unable to tolerate CAM walker, NWB LLE (uses walker and has a leashed support dog at baseline) -pain management as needed, elevation -ortho consult - surgical intervention now or in future? -PT to follow ortho consult -web content & social media manager for discharge planning/placement needs pending ortho recommendations 08/01 to OR today with Dr. Cardoza. PT/OT postoperatively. financial services specialist for discharge planning/placement needs Status: Acute Total time spent: Total time spent is greater than 50% in coordination of care (as documented) at patient's floor/unit and/or counseling patient: (2) Closed head injury: Problem comment: -s/p mechanical ground level fall x2 -CT head without acute intracranial abnormalities -monitor Status: Acute Total time spent: Total time spent is greater than 50% in coordination of care (as documented) at patient's floor/unit and/or counseling patient: (3) Scalp hematoma: Problem comment: -CT head shows minimal soft tissue swelling in the right anterior frontal scalp -symptomatic cares Status: Acute Total time spent: Total time spent is greater than 50% in coordination of care (as documented) at patient's floor/unit and/or counseling patient: (4) Spastic quadriplegia: Problem comment: -uses walker at baseline, has a leashed support dog, resides at the [place] Status: Acute Total time spent: Total time spent is greater than 50% in coordination of care (as documented) at patient's floor/unit and/or counseling patient: (5) Hyponatremia: Problem comment: -sodium 1268 -> 126 ->123 -history of SIADH, has also been on Effexor for some time, patient reiterated this to me when we discussed her current low and declining sodium level -I have reviewed possible causes, differential is long, however, I note that she is not on any diuretics. I also note that nurses report she is diaphoretic at times. I think most likely causes are malnutrition, pain, dehydration, and possible adrenal insufficiency complicated by CKD stage 3b. -serum osmolality pending, random urine sodium and urine osmolality pending -For now I will do a trial of hypertonic saline and recheck sodium level after that, in 4 hours. Continue fluid restriction 1500 mL, sodium chloride tabs. -If symptomatic hypotension arises, will consider NS or LR bolus for dehydration and a dose of solumedrol for possible adrenal crisis/insufficiency. I am holding off on that for now due to patient preference based on her perceived reaction to NS bolus earlier today. 08/01 sodium improved to 128 following a saline bolus. Had attempted to start fluids earlier in the day yesterday however patient was concerned she was having an allergic reaction to the saline so opted to stop infusion. Later today tolerated saline without adverse effects. Status: Acute Total time spent: Total time spent is greater than 50% in coordination of care (as documented) at patient's floor/unit and/or counseling patient: (6) Hypothyroid: Problem comment: Historically, cannot tolerate Synthroid or substitution -TSH 12, baseline 5.4-10.9, T4 0.97 -ongoing management with PCP Status: Chronic Total time spent: Total time spent is greater than 50% in coordination of care (as documented) at patient's floor/unit and/or counseling patient: (7) Anxiety and depression: Problem comment: -continue Effexor and BuSpar Sees Dr. Lua. Status: Chronic Total time spent: Total time spent is greater than 50% in coordination of care (as documented) at patient's floor/unit and/or counseling patient: (8) Seizure disorder: Problem comment: -continue lamotrigine, seizure precautions Sees Dr. Haywood, referral to new neurologist 2023 Status: Chronic Total time spent: Total time spent is greater than 50% in coordination of care (as documented) at patient's floor/unit and/or counseling patient: (9) Dyslipidemia: Problem comment: Continue pravastatin 20 mg daily Status: Chronic Total time spent: Total time spent is greater than 50% in coordination of care (as documented) at patient's floor/unit and/or counseling patient: (10) Multiple drug allergies: Problem comment: Allergies verses adverse side effects noted Status: Acute Total time spent: Total time spent is greater than 50% in coordination of care (as documented) at patient's floor/unit and/or counseling patient: Plan Impression: Left ankle Luo C fracture Left foot 4th metatarsal neck and 4th metatarsal base fractures Plan: She has been medically cleared for surgery. Therefore, we will plan to take her to the operating room today for stabilization of her fibula fracture.
--- NOTE | 2025-07-31 16:12 | SUR.PHASEI ---
unable to chart under NS fluid: into pacu with 100cc ns remaining, infused 100cc at 1537
--- NOTE | 2025-07-31 19:28 | PC.NURSE ---
End of shift, pt has been pleasant. she is Alert and orientated x2 off on date. Pt L ankle is splinted. Pt is up with 2A, GB, Walker turn and pivot only she is NWB. Pt has been NPO since 0000. Pt has a forehead bruise from her fall at home. she went to surgery and did well she is eating, drinking and voiding. pain is better after 0/10 surgery IV is patent
[2025-07-31] MEDS: ACETAMINOPHEN 500 MG TABLET 1000 MG PO (19:45)
[2025-07-31] MEDS: CEFAZOLIN 2 GM in 0.9 % SODIUM CHLORIDE Mini-bag 100 ML IVPB (19:45)
[2025-07-31] MEDS: SENNOSIDES 1 TAB TABLET 2 TAB PO (21:24)
[2025-07-31] MEDS: VENLAFAXINE ER 75 MG CAPSULE PO (21:25)
[2025-08-01] VITALS (9 sets, daily range): BP systolic 101–154; BP diastolic 57–98; PULSE 62–73; RESP 16–18; TEMP 35.9–36.7; O2SAT 92–98
[2025-08-01] MEDS: ACETAMINOPHEN 500 MG TABLET 1000 MG PO ×4 (01:26→19:56)
[2025-08-01] MEDS: CEFAZOLIN 2 GM in 0.9 % SODIUM CHLORIDE Mini-bag 100 ML IVPB ×2 (03:07→11:12)
[2025-08-01 05:55] LABS: Hematocrit* 27.9 % (33.0-51.0); Hemoglobin* 9.0 gm/dL (12.0-16.0); Mean Corpuscular HGB Conc 32 gm/dL (32-36); Mean Corpuscular Hemoglobin 30 pg (26-34); Mean Corpuscular Volume 93 fL (80-100); Red Blood Count* 3.01 m/uL (4.00-5.20); White Blood Count* 8.85 K/uL (4.50-11.00)
[2025-08-01 06:00] LABS: Slide Review Reflex No
[2025-08-01 06:07] LABS: Chloride* 101 mmol/L (96-114); Potassium* 4.8 mmol/L (3.6-5.1); Sodium* 131 mmol/L (135-149)
[2025-08-01 06:10] LABS: Blood Urea Nitrogen* 15 mg/dL (7-30); Creatinine* 1.0 mg/dL (0.5-1.5); Est. Creatinine Clearance* 47.78; Estimated Glomerular Filt Rate 61 ml/min
[2025-08-01 06:11] LABS: Anion Gap 5 mEq/L (7-15); Calcium* 8.7 mg/dL (8.4-10.6); Carbon Dioxide* 25 mmol/L (20-32); Glucose* 130 mg/dL (60-115)
--- NOTE | 2025-08-01 06:11 | PC.NURSE ---
[id number]: Patient pleasant and cooperative. A&Ox3. LLE in a soft cast and elevated. Pain and discomfort managed with PRN medications and active ice. A2 to BSC. NWB not tolerated well. School Bus Dispatcher educated patient on importance of compliance. Therapies to assess. No dizziness reported with transfer. O2 sat dropped to mid 80's after pain medication administration. 1LT O2 applied. Patient back to >90% RA by morning.
[2025-08-01] MEDS: FEXOFENADINE 180 MG TABLET PO (08:36)
[2025-08-01] MEDS: BUSPIRONE 10 MG TABLET 30 MG PO ×2 (08:36→20:38)
[2025-08-01] MEDS: SODIUM CHLORIDE 1 GM TABLET PO ×3 (08:37→17:44)
[2025-08-01] MEDS: SENNOSIDES 1 TAB TABLET 2 TAB PO (08:37)
[2025-08-01] MEDS: VENLAFAXINE ER 75 MG CAPSULE 300 MG PO (08:37)
[2025-08-01] MEDS: PRAVASTATIN SODIUM 20 MG TABLET 40 MG PO (08:38)
--- NOTE | 2025-08-01 09:50 | P.ORPN_ITS ---
Subjective Subjective Time Seen by Provider: 07:30 Date Seen: 08/01/25 Principal diagnosis: hyponatremia, fibula fracture, left 4th metatarsal fracture Interval history: Kathy is comfortable this morning. She will be discharging to a nursing home facility upon discharge. Ortho Exam Narrative Exam Narrative: Alert and oriented x3. Patient is in no acute distress. Converses without labored breathing. Hearing is grossly intact. She has not been able to use walker, nonweightbearing with operative extremity. Splint is intact. Sensation is normal in her toes and extremity. Toes are warm, capillary refill less than 2 seconds. No thigh swelling. Const Vital Signs, click to edit/add: Vital Signs - 24 hr 07/31/25 11:00 07/31/25 15:14 07/31/25 15:20 Temperature 98.0 F 98.9 F Pulse Rate 80 83 Pulse Rate [Left Radial] Pulse Rate [Pulse Oximeter] 71 Respiratory Rate 18 17 19 Blood Pressure 138/85 156/82 H Blood Pressure [Left Arm] Blood Pressure [Right Arm] 139/50 L Pulse Oximetry 100 95 92 Oxygen Delivery Method Room Air Room Air Oxygen Flow Rate 07/31/25 15:25 07/31/25 15:30 07/31/25 15:35 Temperature Pulse Rate 78 75 80 Pulse Rate [Left Radial] Pulse Rate [Pulse Oximeter] Respiratory Rate 20 18 16 Blood Pressure 142/78 H 145/80 H 132/89 Blood Pressure [Left Arm] Blood Pressure [Right Arm] Pulse Oximetry 93 92 95 Oxygen Delivery Method Oxygen Flow Rate 07/31/25 15:40 07/31/25 15:45 07/31/25 15:50 Temperature 98.9 F Pulse Rate 73 75 73 Pulse Rate [Left Radial] Pulse Rate [Pulse Oximeter] Respiratory Rate 18 16 19 Blood Pressure 120/67 140/70 H 138/80 Blood Pressure [Left Arm] Blood Pressure [Right Arm] Pulse Oximetry 94 93 92 Oxygen Delivery Method Oxygen Flow Rate 07/31/25 16:04 07/31/25 16:09 07/31/25 16:10 Temperature 98.4 F 98.9 F Pulse Rate Pulse Rate [Left Radial] 77 Pulse Rate [Pulse Oximeter] Respiratory Rate 14 19 19 Blood Pressure Blood Pressure [Left Arm] 130/76 Blood Pressure [Right Arm] 130/76 Pulse Oximetry 90 92 Oxygen Delivery Method Room Air Room Air Oxygen Flow Rate 07/31/25 16:15 07/31/25 16:33 07/31/25 16:33 Temperature Pulse Rate 69 Pulse Rate [Left Radial] Pulse Rate [Pulse Oximeter] 76 71 Respiratory Rate 14 14 Blood Pressure Blood Pressure [Left Arm] 93/76 147/61 H Blood Pressure [Right Arm] Pulse Oximetry 92 90 Oxygen Delivery Method Room Air Room Air Oxygen Flow Rate 07/31/25 16:45 07/31/25 17:00 07/31/25 17:15 Temperature Pulse Rate Pulse Rate [Left Radial] Pulse Rate [Pulse Oximeter] 73 71 73 Respiratory Rate 14 14 14 Blood Pressure Blood Pressure [Left Arm] 136/59 L 134/56 L 132/56 L Blood Pressure [Right Arm] Pulse Oximetry 90 93 92 Oxygen Delivery Method Room Air Room Air Room Air Oxygen Flow Rate 07/31/25 18:45 07/31/25 19:00 07/31/25 20:00 Temperature 98.3 F Pulse Rate Pulse Rate [Left Radial] Pulse Rate [Pulse Oximeter] 75 80 68 Respiratory Rate 16 18 18 Blood Pressure Blood Pressure [Left Arm] 130/70 132/56 L 147/68 H Blood Pressure [Right Arm] Pulse Oximetry 94 95 91 Oxygen Delivery Method Room Air Room Air Room Air Oxygen Flow Rate 07/31/25 21:00 07/31/25 21:27 07/31/25 21:30 Temperature Pulse Rate Pulse Rate [Left Radial] Pulse Rate [Pulse Oximeter] 65 Respiratory Rate 16 Blood Pressure Blood Pressure [Left Arm] 131/58 L Blood Pressure [Right Arm] Pulse Oximetry 91 85 L 92 Oxygen Delivery Method Room Air Room Air Nasal Cannula Oxygen Flow Rate 1.0 07/31/25 22:00 07/31/25 23:00 08/01/25 00:45 Temperature Pulse Rate 62 Pulse Rate [Left Radial] Pulse Rate [Pulse Oximeter] 61 Respiratory Rate 20 20 Blood Pressure Blood Pressure [Left Arm] 151/74 H Blood Pressure [Right Arm] Pulse Oximetry 93 93 Oxygen Delivery Method Nasal Cannula Nasal Cannula Oxygen Flow Rate 1.0 1.0 08/01/25 01:28 08/01/25 05:00 08/01/25 06:32 Temperature 98.1 F Pulse Rate 62 Pulse Rate [Left Radial] Pulse Rate [Pulse Oximeter] 68 Respiratory Rate 18 Blood Pressure Blood Pressure [Left Arm] 154/75 H Blood Pressure [Right Arm] Pulse Oximetry 92 93 Oxygen Delivery Method Nasal Cannula Room Air Oxygen Flow Rate 1.0 08/01/25 07:30 08/01/25 07:30 08/01/25 07:30 Temperature 97.7 F Pulse Rate Pulse Rate [Left Radial] Pulse Rate [Pulse Oximeter] 70 70 Respiratory Rate 18 18 18 Blood Pressure Blood Pressure [Left Arm] 126/98 H Blood Pressure [Right Arm] Pulse Oximetry 97 97 Oxygen Delivery Method Room Air Room Air Oxygen Flow Rate Assessment and Plan Assessment and plan (1) History of open reduction and internal fixation (ORIF) procedure: Problem details: ORIF left ankle fracture, closed treatment left foot 4th met[address] fractures. Dr. Cardoza, 07/31/25 Status: Acute Assessment and Plan: Nonweightbearing left lower extremity for 6 weeks. She will discharge to halfway facility when facility is available. Ice and elevate left lower extremity p.r.n. Return to Orthopedics for suture removal in 2 weeks, return to Orthopedics with Dr. Cardoza in 6 weeks PT and OT at nursing home facility and in-hospital.
--- NOTE | 2025-08-01 12:29 | P.IMPN_ITS ---
Assessment and Plan Assessment and plan (1) Fracture of distal end of fibula: Problem comment: -s/p mechanical ground level fall x2 -x-ray shows Mildly displaced fracture of the distal fibular metadiaphysis. No dislocation. Mild widening of the medial clear space. Small joint effusion. Soft tissue swelling. -splint in place, unable to tolerate CAM walker, NWB LLE (uses walker and has a leashed support dog at baseline) -pain management as needed, elevation -ortho consult - surgical intervention now or in future? -PT to follow ortho consult -home health care social worker for discharge planning/placement needs pending ortho recommendations 07/31 to OR today with Dr. Cardoza. PT/OT postoperatively 08/01 POD#1 s/p ORIF left ankle fracture, closed treatment left foot 4th metatarsal fractures Complete NWB LLE PT/OT career services coordinator for discharge planning/placement needs Status: Acute (2) Closed head injury: Problem comment: -s/p mechanical ground level fall x2 -CT head without acute intracranial abnormalities Status: Acute (3) Scalp hematoma: Problem comment: -CT head shows minimal soft tissue swelling in the right anterior frontal scalp -symptomatic cares Status: Acute (4) Spastic quadriplegia: Problem comment: -uses walker at baseline, has a leashed support dog, resides at the [place] Status: Acute (5) Hyponatremia: Problem comment: -sodium 1268 -> 126 ->123 -history of SIADH, has also been on Effexor for some time, patient reiterated this to me when we discussed her current low and declining sodium level -I have reviewed possible causes, differential is long, however, I note that she is not on any diuretics. I also note that nurses report she is diaphoretic at times. I think most likely causes are malnutrition, pain, dehydration, and possible adrenal insufficiency complicated by CKD stage 3b. -serum osmolality pending, random urine sodium and urine osmolality pending -For now I will do a trial of hypertonic saline and recheck sodium level after that, in 4 hours. Continue fluid restriction 1500 mL, sodium chloride tabs. -If symptomatic hypotension arises, will consider NS or LR bolus for dehydration and a dose of solumedrol for possible adrenal crisis/insufficiency. I am holding off on that for now due to patient preference based on her perceived reaction to NS bolus earlier today. 07/31 sodium improved to 128 following a saline bolus. Had attempted to start fluids earlier in the day yesterday however patient was concerned she was having an allergic reaction to the saline so opted to stop infusion. Later today tolerated saline without adverse effects. 08/01 sodium 131 Status: Acute (6) Hypothyroid: Problem comment: Historically, cannot tolerate Synthroid or substitution -TSH 12, baseline 5.4-10.9, T4 0.97 -ongoing management with PCP Status: Chronic (7) Anxiety and depression: Problem comment: -continue Effexor and BuSpar Sees Dr. Lua. Status: Chronic (8) Seizure disorder: Problem comment: -continue lamotrigine, seizure precautions Sees Dr. Haywood, referral to new neurologist 2023 Status: Chronic (9) Dyslipidemia: Problem comment: Continue pravastatin 20 mg daily Status: Chronic (10) Multiple drug allergies: Problem comment: Allergies verses adverse side effects noted, updated 07/31 Status: Acute Plan Await placement, continue PT/OT Total Time Spent Total Time Spent: Today I spent 55 minutes seeing the patient, reviewing Expanse and EPIC notes/diagnostics, discussing the care plan with our care time that includes social work, PT/OT, pharmacy, RT, halfway and documenting my impressions and plan in the medical record. Subjective Date Seen: 08/01/25 Interval history: Patient is seen sitting up in a chair this morning. Reports lower extremity pain slowly increasing. This has been her report every morning. Denies headache or dizziness. Denies chest pain or shortness of breath. Tolerating orals without nausea vomiting. Working with PT and OT. Awaiting placement plans per home health care social worker. Exam Narrative: Exam Narrative: PHYSICAL EXAM General: Pleasant, conversant, NAD Cardiovascular: RRR, S1S2. No pitting edema Pulmonary: CTA bilaterally without rhonchi, rales, expiratory wheezes. No dyspnea Neurological: Alert, answering questions appropriately, cranial nerves intact, no focal findings Extremities: No gross joint deformity or swelling. Postoperative dressing in place, dry. Neurovascularly intact Skin: Warm, dry. Const: Vital Signs, click to edit/add: Vital Signs - 24 hr 07/31/25 15:14 07/31/25 15:20 07/31/25 15:25 Temperature 98.9 F Pulse Rate 80 83 78 Pulse Rate [Left R adial] Pulse Rate [Pulse Oximeter] Respiratory Rate 17 19 20 Blood Pressure 138/85 156/82 H 142/78 H Blood Pressure [Le ft Arm] Blood Pressure [Ri ght Arm] Pulse Oximetry 95 92 93 Oxygen Delivery Me thod Room Air Oxygen Flow Rate 07/31/25 15:30 07/31/25 15:35 07/31/25 15:40 Temperature Pulse Rate 75 80 73 Pulse Rate [Left R adial] Pulse Rate [Pulse Oximeter] Respiratory Rate 18 16 18 Blood Pressure 145/80 H 132/89 120/67 Blood Pressure [Le ft Arm] Blood Pressure [Ri ght Arm] Pulse Oximetry 92 95 94 Oxygen Delivery Me thod Oxygen Flow Rate 07/31/25 15:45 07/31/25 15:50 07/31/25 16:04 Temperature 98.9 F 98.4 F Pulse Rate 75 73 Pulse Rate [Left R adial] 77 Pulse Rate [Pulse Oximeter] Respiratory Rate 16 19 14 Blood Pressure 140/70 H 138/80 Blood Pressure [Le ft Arm] 130/76 Blood Pressure [Ri ght Arm] 130/76 Pulse Oximetry 93 92 90 Oxygen Delivery Me thod Room Air Oxygen Flow Rate 07/31/25 16:09 07/31/25 16:10 07/31/25 16:15 Temperature 98.9 F Pulse Rate Pulse Rate [Left R adial] Pulse Rate [Pulse Oximeter] 76 Respiratory Rate 19 19 14 Blood Pressure Blood Pressure [Le ft Arm] 93/76 Blood Pressure [Ri ght Arm] Pulse Oximetry 92 92 Oxygen Delivery Me thod Room Air Room Air Oxygen Flow Rate 07/31/25 16:33 07/31/25 16:33 07/31/25 16:45 Temperature Pulse Rate 69 Pulse Rate [Left R adial] Pulse Rate [Pulse Oximeter] 71 73 Respiratory Rate 14 14 Blood Pressure Blood Pressure [Le ft Arm] 147/61 H 136/59 L Blood Pressure [Ri ght Arm] Pulse Oximetry 90 90 Oxygen Delivery Me thod Room Air Room Air Oxygen Flow Rate 07/31/25 17:00 07/31/25 17:15 07/31/25 18:45 Temperature Pulse Rate Pulse Rate [Left R adial] Pulse Rate [Pulse Oximeter] 71 73 75 Respiratory Rate 14 14 16 Blood Pressure Blood Pressure [Le ft Arm] 134/56 L 132/56 L 130/70 Blood Pressure [Ri ght Arm] Pulse Oximetry 93 92 94 Oxygen Delivery Me thod Room Air Room Air Room Air Oxygen Flow Rate 07/31/25 19:00 07/31/25 20:00 07/31/25 21:00 Temperature 98.3 F Pulse Rate Pulse Rate [Left R adial] Pulse Rate [Pulse Oximeter] 80 68 65 Respiratory Rate 18 18 16 Blood Pressure Blood Pressure [Le ft Arm] 132/56 L 147/68 H 131/58 L Blood Pressure [Ri ght Arm] Pulse Oximetry 95 91 91 Oxygen Delivery Me thod Room Air Room Air Room Air Oxygen Flow Rate 07/31/25 21:27 07/31/25 21:30 07/31/25 22:00 Temperature Pulse Rate Pulse Rate [Left R adial] Pulse Rate [Pulse Oximeter] 61 Respiratory Rate 20 Blood Pressure Blood Pressure [Le ft Arm] 151/74 H Blood Pressure [Ri ght Arm] Pulse Oximetry 85 L 92 93 Oxygen Delivery Me thod Room Air Nasal Cannula Nasal Cannula Oxygen Flow Rate 1.0 1.0 07/31/25 23:00 08/01/25 00:45 08/01/25 01:28 Temperature 98.1 F Pulse Rate 62 Pulse Rate [Left R adial] Pulse Rate [Pulse Oximeter] 68 Respiratory Rate 20 18 Blood Pressure Blood Pressure [Le ft Arm] 154/75 H Blood Pressure [Ri ght Arm] Pulse Oximetry 93 92 Oxygen Delivery Me thod Nasal Cannula Nasal Cannula Oxygen Flow Rate 1.0 1.0 08/01/25 05:00 08/01/25 06:32 08/01/25 07:30 Temperature Pulse Rate 62 Pulse Rate [Left R adial] Pulse Rate [Pulse Oximeter] Respiratory Rate 18 Blood Pressure Blood Pressure [Le ft Arm] Blood Pressure [Ri ght Arm] Pulse Oximetry 93 97 Oxygen Delivery Me thod Room Air Room Air Oxygen Flow Rate 08/01/25 07:30 08/01/25 07:30 08/01/25 11:07 Temperature 97.7 F 97.5 F L Pulse Rate Pulse Rate [Left R adial] Pulse Rate [Pulse Oximeter] 70 70 63 Respiratory Rate 18 18 18 Blood Pressure Blood Pressure [Le ft Arm] 126/98 H 154/62 H Blood Pressure [Ri ght Arm] Pulse Oximetry 97 97 Oxygen Delivery Me thod Room Air Room Air Oxygen Flow Rate Labs Labs: Laboratory Results - last 24 hr 08/01/25 05:40 WBC 8.85 RBC 3.01 L Hgb 9.0 L Hct 27.9 L MCV 93 MCH 30 MCHC 32 Plt Count 287 Sodium 131 L Potassium 4.8 Chloride 101 Carbon Dioxide 25 Anion Gap 5 L BUN 15 Creatinine 1.0 Estimated Creat Clear 47.78 Estimated GFR 61 Glucose 130 H Calcium 8.7
--- NOTE | 2025-08-01 12:45 | PC.SOCIAL ---
Addendum entered by PADMINI Jenkins 08/01/25 15:40: Discharge planning: Pre-admission screening was completed and the form was secure emailed to Katey at [facility]. [id number]. Social work to follow-up as needed. Addendum entered by PADMINI Jenkins 08/01/25 15:17: Discharge planning: Pt has been accepted to [facility] for short-term rehab tomorrow in a private room/private bathroom. Pt will accept the room. Pt will qualify for non-emergent EMS due to her non-weight bearing status. Non-emergent EMS is scheduled for a 10:30-11:00am pick-up time tomorrow. Social work to follow-up as needed. Original Note: Discharge planning: rock room worker checked in with the pt today and updated the pt that [facility] is assessing her referral for placement still. Pt was pleased with the update. rock room worker did ask the pt to look over the [facility] list again to give this worker more options for placement if [facility] is not able to accept her. Pt stated that she will do that. rock room worker will check back in with the pt. rock room worker did hear from Katey at [facility] who had some follow-up questions about the referral. rock room worker answered these questions for Katey. rock room worker also received this message from [facility] about service animals, Yes, under the ADA, we must allow service dogs unless they pose a direct threat to health or safety of the residents.? This is not the same thing as a merchandising execution manager dog.? The resident must keep the dog under the resident's control (i.e. leash) and the resident or resident rep is responsible to care for the dog.? Staff are not required to care for or handle the dog. The above statement is from the Circulating Nurse of [facility]. Social work to follow-up as needed.
--- NOTE | 2025-08-01 19:20 | PC.NURSE ---
End of shift [id number] ? RN took over care at approximately 1530. Pt alert, oriented, cooperative. Not up from bed during shift. Tolerating RA, regular diet, and fluid restriction per MD order. Pt denies pain in operative foot. RN unable to assess pedal pulse due to placement of pt cast. RN assessed movement and sensation as well as capillary refill and skin appearance and temperature of exposed toes on surgical foot. Pt appears to be resting comfortably in bed with call light within reach at end of shift. ?
[2025-08-01] MEDS: ASPIRIN 81 MG TAB.CHEW PO (20:38)
[2025-08-01] MEDS: VENLAFAXINE ER 75 MG CAPSULE PO (20:39)
[2025-08-01] MEDS: SODIUM CHLORIDE 0.9 % (FLUSH) 10 ML SYRINGE 5 ML IVF (20:40)
[2025-08-02] MEDS: ACETAMINOPHEN 500 MG TABLET 1000 MG PO ×3 (01:41→19:53)
[2025-08-02 03:00] VITALS: BP 107/75; PULSE 70; RESP 16; TEMP 36.4; O2SAT 94
[2025-08-02 06:34] LABS: Hematocrit* 26.8 % (33.0-51.0); Hemoglobin* 8.8 gm/dL (12.0-16.0); Mean Corpuscular HGB Conc 33 gm/dL (32-36); Mean Corpuscular Hemoglobin 30 pg (26-34); Mean Corpuscular Volume 93 fL (80-100); Red Blood Count* 2.89 m/uL (4.00-5.20); White Blood Count* 7.66 K/uL (4.50-11.00)
[2025-08-02 06:42] LABS: Slide Review Reflex No
--- NOTE | 2025-08-02 06:43 | PC.NURSE ---
[id number] Pt slept well during night, denies pain, left toes warm to touch, pt able to wiggle toes and denies numbness and tingling. Pt able to stand at bedside with walker, gb and 1A while maintaining NWB to LLE, with this, nursing moves bed out of the way and places bsc behind pt and she is able to sit and use br, she tolerates this very well and promotes activity. c/o chest tightness this a.m., ekg done.
[2025-08-02 06:46] LABS: Chloride* 102 mmol/L (96-114); Sodium* 131 mmol/L (135-149)
[2025-08-02 06:47] LABS: Potassium* 3.9 mmol/L (3.6-5.1)
[2025-08-02 06:49] LABS: Blood Urea Nitrogen* 11 mg/dL (7-30); Creatinine* 1.0 mg/dL (0.5-1.5); Est. Creatinine Clearance* 47.78; Estimated Glomerular Filt Rate 61 ml/min
[2025-08-02 06:50] LABS: Anion Gap 3 mEq/L (7-15); Calcium* 8.7 mg/dL (8.4-10.6); Carbon Dioxide* 26 mmol/L (20-32); Glucose* 106 mg/dL (60-115)
[2025-08-02 07:00] VITALS: BP 171/69; PULSE 68; RESP 16; TEMP 36.4; O2SAT 99
[2025-08-02] MEDS: PANTOPRAZOLE SODIUM 40 MG INJ IVP (09:16)
[2025-08-02] MEDS: SODIUM CHLORIDE 0.9 % (FLUSH) 10 ML SYRINGE 5 ML IVF (09:16)
[2025-08-02] MEDS: VENLAFAXINE ER 75 MG CAPSULE 300 MG PO (09:24)
[2025-08-02] MEDS: BUSPIRONE 10 MG TABLET 30 MG PO ×2 (09:24→21:20)
[2025-08-02 11:00] VITALS: BP 153/69; PULSE 83; RESP 18; TEMP 36.6; O2SAT 98
--- NOTE | 2025-08-02 12:35 | P.ANES_ITS ---
Anesthesia Charges Start Date/Time Anesthesia Start Date: 07/31/25 Anesthesia Start Time: 12:56 Stop Date/Time Anesthesia Stop Date: 07/31/25 Anesthesia Stop Time: 15:18 Coding CPT Codes CPT Codes: ANES UPR GI NDSC PX NOS - 51405 ([id number]) P2 - PATIENT W/MILD SYST DISEASE, QZ - AIRPORT BAGGAGE SCREENER SVC W/O LABOR LAW PROFESSOR BY
--- NOTE | 2025-08-02 12:35 | W.ANESCHARGE ---
Anesthesia Charges Start Date/Time Anesthesia Start Date: 07/31/25 Anesthesia Start Time: 12:56 Stop Date/Time Anesthesia Stop Date: 07/31/25 Anesthesia Stop Time: 15:18 Coding CPT Codes CPT Codes: ANES UPR GI NDSC PX NOS - 67102 ([id number]) P2 - PATIENT W/MILD SYST DISEASE, QZ - A/C TECHNICIAN SVC W/O BOMB SQUAD OFFICER BY
[2025-08-02] MEDS: SODIUM CHLORIDE 1 GM TABLET PO ×2 (13:14→18:22)
--- NOTE | 2025-08-02 13:19 | P.IMPN_ITS ---
Assessment and Plan Assessment and plan (1) Fracture of distal end of fibula: Problem comment: -s/p mechanical ground level fall x2 -x-ray shows Mildly displaced fracture of the distal fibular metadiaphysis. No dislocation. Mild widening of the medial clear space. Small joint effusion. Soft tissue swelling. -splint in place, unable to tolerate CAM walker, NWB LLE (uses walker and has a leashed support dog at baseline) -pain management as needed, elevation -ortho consult - surgical intervention now or in future? -PT to follow ortho consult -social media community manager for discharge planning/placement needs pending ortho recommendations 07/31 to OR today with Dr. Cardoza. PT/OT postoperatively 08/01 POD#1 s/p ORIF left ankle fracture, closed treatment left foot 4th metatarsal fractures Complete NWB LLE PT/OT guest services attendant for discharge planning/placement needs Status: Acute (2) Closed head injury: Problem comment: -s/p mechanical ground level fall x2 -CT head without acute intracranial abnormalities Status: Acute (3) Scalp hematoma: Problem comment: -CT head shows minimal soft tissue swelling in the right anterior frontal scalp -symptomatic cares Status: Acute (4) Spastic quadriplegia: Problem comment: -uses walker at baseline, has a leashed support dog, resides at the [place] Status: Acute (5) Hyponatremia: Problem comment: -sodium 1268 -> 126 ->123 -history of SIADH, has also been on Effexor for some time, patient reiterated this to me when we discussed her current low and declining sodium level -I have reviewed possible causes, differential is long, however, I note that she is not on any diuretics. I also note that nurses report she is diaphoretic at times. I think most likely causes are malnutrition, pain, dehydration, and possible adrenal insufficiency complicated by CKD stage 3b. -serum osmolality pending, random urine sodium and urine osmolality pending -For now I will do a trial of hypertonic saline and recheck sodium level after that, in 4 hours. Continue fluid restriction 1500 mL, sodium chloride tabs. -If symptomatic hypotension arises, will consider NS or LR bolus for dehydration and a dose of solumedrol for possible adrenal crisis/insufficiency. I am holding off on that for now due to patient preference based on her perceived reaction to NS bolus earlier today. 07/31 sodium improved to 128 following a saline bolus. Had attempted to start fluids earlier in the day yesterday however patient was concerned she was having an allergic reaction to the saline so opted to stop infusion. Later today tolerated saline without adverse effects. 08/01 sodium 131 08/02/2025 serum sodium 131 Status: Acute (6) Hypothyroid: Problem comment: Historically, cannot tolerate Synthroid or substitution -TSH 12, baseline 5.4-10.9, T4 0.97 -ongoing management with PCP Status: Chronic (7) Anxiety and depression: Problem comment: -continue Effexor and BuSpar Sees Dr. Lua. Status: Chronic (8) Seizure disorder: Problem comment: -continue lamotrigine, seizure precautions Sees Dr. Haywood, referral to new neurologist 2023 Status: Chronic (9) Dyslipidemia: Problem comment: Continue pravastatin 20 mg daily Status: Chronic (10) Multiple drug allergies: Problem comment: Allergies verses adverse side effects noted, updated 07/31 Status: Acute (11) History of open reduction and internal fixation (ORIF) procedure: Problem comment: ORIF left ankle fracture, closed treatment left foot [address]th met[address] fractures[address] Cardoza, 07/31/25 Status: Acute (12) Anemia: Problem comment: - acute on chronic - baseline Hg 11.5-12.8 - Post-op day #2, 08/02/2025, Hg 8.8, with EGC negative for bleeding or stigmat a of bleeding - Recommend repeat Hg or CBC week of 06 August 2025 for re-assessment Status: Acute Plan 1. Reviewed impression, plans, recommendations with patient 2. Patient agreeable to proceed with EGD which was undertaken without any acute findings 3. Empiric proton pump inhibitor for the next 4 weeks while she is on the aspirin 81 mg twice daily 4. Discharge to longterm facility when available 5. Patient agreeable with above stated plans and recommendations Total Time Spent Total Time Spent: 45 minutes Subjective Date Seen: 08/02/25 Interval history: 07/30/2025, admission history of present illness: ?70 year old female who has a history of spastic quadriplegia and ambulates with a walker. She also has a seizure disorder prediabetes hypothyroidism hypertension SIADH eosinophilic esophagitis stage III chronic kidney disease balance problems, anxiety and depression. She lives in an independent living apartment. She fell this morning while going to her walker and hit her head. 911 was called and the patient was evaluated by EMS. She stayed home. However she fell again this evening after going to use the bathroom. She thinks she had bad cheese and this upset her stomach and she went to the bathroom. She did not have any diarrhea but when she got up from the toilet she lost her balance due to some dizziness she tried to hold onto a bar but fell. She was then unable to bear any weight on the left ankle. This time when EMS came they took her to the emergency room. She says she does have balance problems and has fallen in the past but has not fallen recently. In the emergency room her blood pressure was 118/74 heart rate 71 ox saturation 99% temperature 96.2 ?F. She had a bruise near the right eyebrow. The left ankle was swollen and bruised. She was tender to palpation in the right ankle. CT of the head showed minimal soft tissue swelling in the right anterior frontal scalp but was otherwise negative. Left ankle x-ray showed a mildly displaced distal fibula fracture and mild widening of the medial clear space. EKG showed sinus rhythm with a poor quality baseline. The ER physician discussed case with the on-call orthopedist. The plan was to have the patient discharged home in a CAM boot. She would then follow-up in the clinic and would possibly need surgery for the fracture. However the patient did not think she could ambulate with the boot. Instead Miller splint was placed and the patient is being admitted to observation. After this decision was made labs were ordered showing: White blood cell count 12.6 thousand hemoglobin 12.8 g platelets 278,000 sodium 128 potassium 4.5 chloride 95 CO2 19 BUN 32 creatinine 1.1 glucose 121.? 08/02/2025, hospital day number 4. Continues to acknowledged sense of generalized weakness and requires assistance with a lot of her ADLs. Episode of chest heaviness epigastric heaviness earlier this morning now resolved. Hemoglobin down to 8.8 today compared to admission hemoglobin of 12.8. Baseline hemoglobin of 11 to 12. No apparent blood loss. Underwent esophageal gastroduodenoscopy today with no evidence of recent bleedi ng, stigmata of bleeding, active bleeding, abnormal lesions in upper gastrointestinal tract down to the level of the duodenum. Exam Narrative: Exam Narrative: Examined patient in her hospital room. Appears comfortable no acute distress. Alert and oriented x4. Lungs are clear to auscultation. Heart tones with chaotic rhythm, rate controlled. Abdomen with active bowel sounds, soft, nontender. Extremities without edema. No focal motor neurologic deficits. Const: Vital Signs, click to edit/add: Vital Signs - 24 hr 08/01/25 15:00 08/01/25 15:00 08/01/25 15:00 Temperature 97.2 F L Pulse Rate 64 Pulse Rate [Pulse Oximeter] 70 Respiratory Rate 18 18 Blood Pressure [Le ft Arm] 125/62 Pulse Oximetry 96 96 Oxygen Delivery Nv thod Room Air Room Air Oxygen Flow Rate 08/01/25 19:00 08/01/25 23:00 08/01/25 23:00 Temperature 96.7 F L 97.2 F L Pulse Rate Pulse Rate [Pulse Oximeter] 66 69 Respiratory Rate 18 16 16 Blood Pressure [Le ft Arm] 101/61 112/57 L Pulse Oximetry 98 98 96 [facility] Room Air Room Air Oxygen Flow Rate 08/01/25 23:00 08/02/25 03:00 08/02/25 07:00 Temperature 97.5 F L 97.6 F Pulse Rate 73 Pulse Rate [Pulse Oximeter] 70 68 Respiratory Rate 16 16 Blood Pressure [Le ft Arm] 107/75 171/69 H Pulse Oximetry 94 99 [facility]xygen [facility] Room Air Oxygen Flow Rate 08/02/25 07:00 08/02/25 07:00 08/02/25 07:00 Temperature Pulse Rate 68 Pulse Rate [Pulse Oximeter] 68 Respiratory Rate 16 16 Blood Pressure [Le ft Arm] Pulse Oximetry 99 [facility]xygen [facility] Oxygen Flow Rate 08/02/25 11:00 Temperature 97.9 F Pulse Rate Pulse Rate [Pulse Oximeter] 83 Respiratory Rate 18 Blood Pressure [Le ft Arm] 153/69 H Pulse Oximetry 98 Oxygen Delivery Nv thod Room Air Oxygen Flow Rate 1.0 Labs Labs: Laboratory Results - last 24 hr 07/30/25 07/30/25 08/02/25 06:10 07:00 05:46 WBC 7.66 RBC 2.89 L Hgb 8.8 L Hct 26.8 L MCV 93 MCH 30 MCHC 33 Plt Count 306 Sodium 131 L Potassium 3.9 Chloride 102 Carbon Dioxide 26 Anion Gap 3 L BUN 11 Creatinine 1.0 Estimated Creat Clear 47.78 Estimated GFR 61 Glucose 106 Serum Osmolality 278 L Calcium 8.7 Ur Random Osmolality 326
--- NOTE | 2025-08-02 15:08 | PC.SOCIAL ---
Discharge planning: Pt was not able to discharge to [facility] today due to her low hemoglobin and needing an EGD completed. fuel system maintenance worker notified [facility] and they will hold her bed. The tests that the pt had completed this morning were all fine, so she will be able to discharge to [facility] on Wednesday. fuel system maintenance worker sent updated notes to Katey in Admissions at [facility] via secure email. fuel system maintenance worker also provided the pt with a list of wheelchair accessible/medical transport vans for her to have incase she needs that information for transportation to follow-up appointments when she is at [facility] completing rehab. Social work to follow-up as needed.
[2025-08-02 15:42] VITALS: BP 126/66; PULSE 68; RESP 18; TEMP 36.4; O2SAT 93
[2025-08-02 19:00] VITALS: BP 137/72; PULSE 67; RESP 16; TEMP 36.3; O2SAT 98
--- NOTE | 2025-08-02 19:00 | PC.NURSE ---
End of shift: Pt. AOx4. VSS. Pt. expresses needs appropriately. EGD done this AMMD provided results. No notable results. Pt. tolerating diet well. X2 Pivot to commode. Active ice applied. Dressing and zafar wrap C/D/I.
[2025-08-02] MEDS: ASPIRIN 81 MG TAB.CHEW PO (21:20)
[2025-08-02] MEDS: VENLAFAXINE ER 75 MG CAPSULE PO (21:21)
[2025-08-02 23:00] VITALS: BP 157/89; PULSE 69; RESP 16; TEMP 36.3; O2SAT 97; O2SAT 98
[2025-08-03] MEDS: ACETAMINOPHEN 500 MG TABLET 1000 MG PO ×2 (02:15→09:10)
[2025-08-03 03:00] VITALS: BP 151/95; PULSE 70; RESP 16; TEMP 36.3; O2SAT 98
--- NOTE | 2025-08-03 05:40 | PC.NURSE ---
[id number] Pt slept well during night, standing at bedside to use bsc, NWB to LLE, walker, GB, pt moving independently in and out of bed and tolerating activity very well. pain controlled with scheduled tylenol. denies chest pain, sob, headache, n/v.
[2025-08-03 06:32] LABS: Hematocrit* 29.3 % (33.0-51.0); Hemoglobin* 9.5 gm/dL (12.0-16.0); Mean Corpuscular HGB Conc 32 gm/dL (32-36); Mean Corpuscular Hemoglobin 30 pg (26-34); Mean Corpuscular Volume 93 fL (80-100); Red Blood Count* 3.16 m/uL (4.00-5.20); White Blood Count* 5.61 K/uL (4.50-11.00)
[2025-08-03 06:34] LABS: Slide Review Reflex No
[2025-08-03 06:46] LABS: Chloride* 102 mmol/L (96-114); Potassium* 4.1 mmol/L (3.6-5.1); Sodium* 133 mmol/L (135-149)
[2025-08-03 06:49] LABS: Anion Gap 4 mEq/L (7-15); Blood Urea Nitrogen* 12 mg/dL (7-30); Calcium* 8.7 mg/dL (8.4-10.6); Carbon Dioxide* 27 mmol/L (20-32); Creatinine* 0.8 mg/dL (0.5-1.5); Est. Creatinine Clearance* 47.78; Estimated Glomerular Filt Rate 80 ml/min; Glucose* 118 mg/dL (60-115)
[2025-08-03 07:00] VITALS: BP 212/99; PULSE 69; RESP 18; TEMP 36.3; O2SAT 99
[2025-08-03 08:30] VITALS: RESP 16; O2SAT 99
[2025-08-03] MEDS: SODIUM CHLORIDE 1 GM TABLET PO (09:09)
[2025-08-03] MEDS: BUSPIRONE 10 MG TABLET 30 MG PO (09:10)
[2025-08-03] MEDS: PRAVASTATIN SODIUM 20 MG TABLET 40 MG PO (09:10)
[2025-08-03] MEDS: ASPIRIN 81 MG TAB.CHEW PO (09:10)
[2025-08-03] MEDS: VENLAFAXINE ER 75 MG CAPSULE 300 MG PO (09:10)
[2025-08-03] MEDS: SENNOSIDES 1 TAB TABLET 2 TAB PO (09:10)
[2025-08-03] MEDS: FEXOFENADINE 180 MG TABLET PO (09:10)
[2025-08-03 09:22] VITALS: BP 185/90
--- NOTE | 2025-08-03 11:30 | PC.SOCIAL ---
Discharge planning: Pt discharged to [facility] today for short-term rehab via non-emergent EMS. Pt's insurance should cover the cost of transport due to her NWB status and unhealed fractures. home economics extension worker provided the pt with a copy of The Important Message from Medicare form at discharge and explained the appeal process. Pt's had no concerns about discharging today. Social work to follow-up as needed.
--- NOTE | 2025-08-03 13:30 | PC.NURSE ---
The patient discharged to [facility] this AM. Report was given to Cande at the rehab center. All questions were answered. All belongings were sent with the patient. Jen CHEN BSN
--- NOTE | 2025-08-03 15:13 | P.DS_ITS ---
DS: Providers Provider Date Seen: 08/03/25 Date of admission: 07/30/25 08:54 Primary care physician: Apryl Fink MD Admitting Clinician: Shai Sam MD Consults: 07/30/25 03:04 Consult to Physical Therapy [CONS] Routine Comment: Reason(s) for PT Consult:: Evaluate Ambulation Any Restrictions?:: See Comment Comment: distal left fibular fracture 07/30/25 03:51 Consult to Business Machine Operator [CONS] Routine Comment: Reason for Consult:: Social Service Consult 07/30/25 06:00 Consult to Physician [CONS] Routine Comment: Consulting Provider: Soren Cardoza Has provider been notified: No 07/31/25 16:12 Consult to Occupational Therapy [CONS] Routine Comment: Reason(s) for OT Consult:: Evaluate and Treat Any Restrictions?:: See Comment Comment: evaluate and treat Consult to Physical Therapy [CONS] Routine Comment: Reason(s) for PT Consult:: Evaluate and Treat Any Restrictions?:: See Comment Comment: Nonweightbearing left lower extremity Consult to Business Machine Operator [CONS] Routine Comment: Reason for Consult:: Discharge Planning Needs Attending Physician on discharge: Arthur Sharpe MD Date of Discharge: 08/03/25 DS: Diagnosis Discharge Diagnosis (1) Fracture of distal end of fibula: Status: Acute Problem details: -s/p mechanical ground level fall x2 -x-ray shows Mildly displaced fracture of the distal fibular metadiaphysis. No dislocation. Mild widening of the medial clear space. Small joint effusion. Soft tissue swelling. -splint in place, unable to tolerate CAM walker, NWB LLE (uses walker and has a leashed support dog at baseline) -pain management as needed, elevation -ortho consult - surgical intervention now or in future? -PT to follow ortho consult -social work program coordinator for discharge planning/placement needs pending ortho recommendations 07/31 to OR today with Dr. Cardoza. PT/OT postoperatively 08/01 POD#1 s/p ORIF left ankle fracture, closed treatment left foot 4th metatarsal fractures Complete NWB LLE PT/OT security services manager for discharge planning/placement needs (2) History of open reduction and internal fixation (ORIF) procedure: Status: Acute Problem details: ORIF left ankle fracture, closed treatment left foot [address]th [address] Cardoza, 07/31/25 (3) Spastic quadriplegia: Status: Acute Problem details: -uses walker at baseline, has a leashed support dog, resides at the [place] (4) Closed head injury: Status: Acute Problem details: -s/p mechanical ground level fall x2 -CT head without acute intracranial abnormalities (5) Scalp hematoma: Status: Acute Problem details: -CT head shows minimal soft tissue swelling in the right anterior frontal scalp -symptomatic cares (6) Hyponatremia: Status: Acute Problem details: -sodium 1268 -> 126 ->123 -history of SIADH, has also been on Effexor for some time, patient reiterated this to me when we discussed her current low and declining sodium level -I have reviewed possible causes, differential is long, however, I note that she is not on any diuretics. I also note that nurses report she is diaphoretic at times. I think most likely causes are malnutrition, pain, dehydration, and possible adrenal insufficiency complicated by CKD stage 3b. -serum osmolality pending, random urine sodium and urine osmolality pending -For now I will do a trial of hypertonic saline and recheck sodium level after that, in 4 hours. Continue fluid restriction 1500 mL, sodium chloride tabs. -If symptomatic hypotension arises, will consider NS or LR bolus for dehydration and a dose of solumedrol for possible adrenal crisis/insufficiency. I am holding off on that for now due to patient preference based on her perceived reaction to NS bolus earlier today. 07/31 sodium improved to 128 following a saline bolus. Had attempted to start fluids earlier in the day yesterday however patient was concerned she was having an allergic reaction to the saline so opted to stop infusion. Later today tolerated saline without adverse effects. 08/01 sodium 131 08/02/2025 serum sodium 131 (7) Osteoporosis: Status: Acute (8) Vitamin D deficiency: Status: Acute (9) Seizure disorder: Status: Chronic Problem details: -continue lamotrigine, seizure precautions Sees Dr. Haywood, referral to new neurologist 2023 (10) Fatigue: Status: Chronic (11) Anxiety and depression: Status: Chronic Problem details: -continue Effexor and BuSpar Sees Dr. Lua. (12) Balance problems: Status: Chronic (13) Chronic kidney disease, stage III (moderate): Status: Chronic Problem details: Likely due to NSAID use. Sees [place] operator technician Dr. Jordon lin. (14) Dilation of aorta: Status: Chronic Problem details: Dilated to 4.1cm on 02/16/19 Echo. (15) Dyslipidemia: Status: Chronic Problem details: Continue pravastatin 20 mg daily (16) Eosinophilic esophagitis: Status: Chronic Problem details: Dr. Loya. (17) Hypertension: Status: Chronic (18) Psoriatic arthritis: Status: Chronic (19) Stricture of esophagus: Status: Chronic Problem details: EGD 08/2015 : esophagitis, HH, dysphagia (Dr Loya) omeprazole 40mg. (20) History of echocardiogram: Status: Acute Problem details: 02/16/19: Increased systolic function, EF >80%. (21) Prediabetes: Status: Chronic (22) Anemia: Status: Acute Problem details: - acute on chronic - baseline Hg 11.5-12.8 - Post-op day #2, 08/02/2025, Hg 8.8, with EGC negative for bleeding or stigmata of bleeding - Recommend repeat Hg or CBC week of 06 August 2025 for re-assessment DS: Summary Hospital Course Hospital Course: 07/30/2025, admission history of present illness: ?70 year old female who has a history of spastic quadriplegia and ambulates with a walker. She also has a seizure disorder prediabetes hypothyroidism hypertension SIADH eosinophilic esophagitis stage III chronic kidney disease bal ance problems, anxiety and depression. She lives in an independent living apartment. She fell this morning while going to her walker and hit her head. 911 was called and the patient was evaluated by EMS. She stayed home. However she fell again this evening after going to use the bathroom. She thinks she had bad cheese and this upset her stomach and she went to the bathroom. She did not have any diarrhea but when she got up from the toilet she lost her balance due to some dizziness she tried to hold onto a bar but fell. She was then unable to bear any weight on the left ankle. This time when EMS came they took her to the emergency room. She says she does have balance problems and has fallen in the past but has not fallen recently. In the emergency room her blood pressure was 118/74 heart rate 71 ox saturation 99% temperature 96.2 ?F. She had a bruise near the right eyebrow. The left ankle was swollen and bruised. She was tender to palpation in the right ankle. CT of the head showed minimal soft tissue swelling in the right anterior frontal scalp but was otherwise negative. Left ankle x-ray showed a mildly displaced distal fibula fracture and mild widening of the medial clear space. EKG showed sinus rhythm with a poor quality baseline. The ER physician discussed case with the on-call orthopedist. The plan was to have the patient discharged home in a CAM boot. She would then follow-up in the clinic and would possibly need surgery for the fracture. However the patient did not think she could ambulate with the boot. Instead Miller splint was placed and the patient is being admitted to observation. After this decision was made labs were ordered showing: White blood cell count 12.6 thousand hemoglobin 12.8 g platelets 278,000 sodium 128 potassium 4.5 chloride 95 CO2 19 BUN 32 creatinine 1.1 glucose 121.? 08/02/2025, hospital day number 4. Continues to acknowledged sense of generalized weakness and requires assistance with a lot of her ADLs. Episode of chest heaviness epigastric heaviness earlier this morning now resolved. Hemoglobin down to 8.8 today compared to admission hemoglobin of 12.8. Baseline hemoglobin of 11 to 12. No apparent blood loss. Underwent esophageal gastroduodenoscopy today with no evidence of recent bleeding, stigmata of bleeding, active bleeding, abnormal lesions in upper gastrointestinal tract down to the level of the duodenum. 08/03/2025, hospital day 5. Patient received no packed red blood cell transfusions during the course of her hospital stay. Hemoglobin yesterday was 8.8. Hemoglobin today 9.5. [facility] facility ready to receive patient today. Patient ready for discharge. Status at Discharge Overall status at discharge: patient is not back to baseline Time Spent with Patient Time attestation: Total time spent providing and/or coordinating discharge services: Time spent: Less than 30 minutes Exam Narrative: Exam Narrative: Examined patient in her hospital room. Appears comfortable no acute distress. Alert and oriented x4. Lungs are clear to auscultation. Heart tones with chaotic rhythm, rate controlled. Abdomen with active bowel sounds, soft, nontender. Extremities without edema. No focal motor neurologic deficits. Const: Vital Signs, click to edit/add: Vital Signs - 24 hr 08/02/25 15:42 08/02/25 15:42 08/02/25 15:42 Temperature 97.6 F Pulse Rate [Pulse Oximeter] 68 68 Respiratory Rate 18 18 18 Blood Pressure [Le ft Arm] 126/66 Pulse Oximetry 93 93 Oxygen Delivery Me thod Room Air Room Air 08/02/25 19:00 08/02/25 23:00 08/02/25 23:00 Temperature 97.4 F L 97.4 F L Pulse Rate [Pulse Oximeter] 67 69 Respiratory Rate 16 16 16 Blood Pressure [Le ft Arm] 137/72 157/89 H Pulse Oximetry 98 98 97 Oxygen Delivery Me thod Room Air Room Air Room Air 08/03/25 03:00 08/03/25 07:00 08/03/25 08:30 Temperature 97.4 F L 97.4 F L Pulse Rate [Pulse Oximeter] 70 69 Respiratory Rate 16 18 16 Blood Pressure [Le ft Arm] 151/95 H 212/99 H Pulse Oximetry 98 99 99 Oxygen Delivery Me thod Room Air Room Air Room Air 08/03/25 09:22 Temperature Pulse Rate [Pulse Oximeter] Respiratory Rate Blood Pressure [Le ft Arm] 185/90 H Pulse Oximetry Oxygen Delivery Me thod DS: Data Data Completed and Pending Labs on day of discharge: Labs from last 24 hours 08/03/25 05:36 WBC 5.61 RBC 3.16 L Hgb 9.5 L Hct 29.3 L MCV 93 MCH 30 MCHC 32 Plt Count 344 Sodium 133 L Potassium 4.1 Chloride 102 Carbon Dioxide 27 Anion Gap 4 L BUN 12 Creatinine 0.8 Estimated Creat Clear 47.78 Estimated GFR 80 Glucose 118 H Calcium 8.7 Imaging Right foot x-ray: Radiologist's impression: Minimally displaced fracture of the distal 4th metatarsal with moderate dorsal midfoot soft tissue swelling. Right ankle x-ray: Radiologist's impression: 1. Mildly displaced distal fibular fracture. 2. Mild widening of the medial clear space. Discharge Plan Discharge Disposition: [facility] Discharge Location: [place] [facility] Date of Admission: 07/30/25 08:54 Attending Provider on Discharge: Arthur Sharpe Consulting Providers: Soren Cardoza Primary Care Provider: Apryl Fink Condition: Stable Anticipated Discharge Date/Time: 08/02/25 13:00 Discharge Medications: New sennosides [Senna Lax] 8.6 mg Tablet 8.6 mg PO BID Qty: 60 0RF acetaminophen 500 mg Tablet 1,000 mg PO Q6H Qty: 30 0RF aspirin [Children's Aspirin] 81 mg Tablet,Chewable 81 mg PO BID Qty: 60 0RF oxycodone 5 mg Tablet 5 mg PO Q4H PRN (Reason: Pain) Qty: 20 0RF omeprazole 20 mg Capsule,Delayed Release(Dr/Ec) 20 mg PO DAILY@0700 30 Days Qty: 30 0RF ferrous sulfate 324 mg (65 mg iron) tablet,delayed release (DR/EC) 324 mg PO DAILY Qty: 30 2RF zolpidem 12.5 mg tablet,ext release multiphase 12.5 mg PO QHS Qty: 14 1RF Continued venlafaxine [Effexor XR] 150 mg capsule,extended release 24hr 300 mg PO QAM buspirone 30 mg tablet 30 mg PO BID epinephrine [EpiPen 2-Jose L] 0.3 mg/0.3 mL auto-injector 0.3 ml subcut Q5-15M PRN (Reason: anaphylaxis) Qty: 2 0RF Rx Instructions: do not exceed 2 doses per episode venlafaxine 75 mg capsule,extended release 24hr 75 mg PO HS lamotrigine 200 mg tablet 300 mg PO QPM pravastatin 40 mg tablet 40 mg PO DAILY Discontinued zolpidem 12.5 mg tablet,ext release multiphase 12.5 mg PO HS Patient Comments: TAKE 1 TABLET (12.5 MG) BY MOUTH AT BEDTIME NEEDED FOR SLEEP. TEMPORARY SUPPLY UNTIL MAIL ORDER ARRIVES. Discharge Orders: Discharge Order (Routine); Ordered 08/03/25 Ordered By: Arthur Sharpe Additional Instructions: Two appointments needed: Orthopedic appt with Dr Cardoza in 6 weeks Orthopedic clinic [facility] Wound check With Orthopedic PA in 2 weeks- suture removal and short leg nonweightbearing cast at that time, Orthoped[facility] Phone number [phone] or [facility] week of 06 August 2025 Activity Level: Activity as Tolerated Activity Detail: Non weightbearing left lower extremity for 6 weeks. Keep splint clean and dry. Elevate the left lower extremity as needed for pain and swelling. Splint is not waterproof. Continue to work on ice and elevation p.r.n.. Discharge Diet: Regular Follow Up Appointments: Apryl Fink MD [Primary Care Provider, [facility]] Forms: Patient Belongings, [facility] Info Instructions Admit to: SNF Discharge Potential: Good Length of Stay: <30 days Can use facility standing orders?: Yes Code Status: Full Code Rehab Potential: Good Therapy: Physical Therapy and Occupational Therapy Therapy Orders: Evaluate and Treat Therapy Orders Additional Information: Nonweightbearing left lower extremity for 6 weeks. Oxygen: No Urinary Catheter: No Orders are good >30 days: No Signature: RACHELLE Jimenez, PA-C [facility]
== END 2025-08-03 11:00 | DRG 492 ==
LOC: ED 07-30 01:04 → MEDSURG 07-30 01:50
PROVIDERS: Family Medicine; Orthopaedic Surgery; Physician Assistant; Admitting Provider Family Medicine; Emergency Provider Family Medicine; PCP Family Medicine; Visit Provider Internal Medicine
PROC: 0QSK06Z Reposition Left Fibula with Intramedullary Internal Fixation Device, Open Approach (ICD-10-PCS; principal; 2025-07-31 12:30)
DX: S82.62XA Displaced fracture of lateral malleolus of left fibula, initial encounter for closed fracture (principal); G80.0 Spastic quadriplegic cerebral palsy; E87.1 Hypo-osmolality and hyponatremia; Z59.19 Other inadequate housing; D64.89 Other specified anemias; G89.18 Other acute postprocedural pain; S92.342A Displaced fracture of fourth metatarsal bone, left foot, initial encounter for closed fracture; S00.03XA Contusion of scalp, initial encounter; W18.12XA Fall from or off toilet with subsequent striking against object, initial encounter; Y92.002 Bathroom of unspecified non-institutional (private) residence as the place of occurrence of the external cause; K20.0 Eosinophilic esophagitis; K22.2 Esophageal obstruction; G40.909 Epilepsy, unspecified, not intractable, without status epilepticus; I12.9 Hypertensive chronic kidney disease with stage 1 through stage 4 chronic kidney disease, or unspecified chronic kidney disease; N18.32 Chronic kidney disease, stage 3b; Z59.41 Food insecurity; Z59.82 Transportation insecurity; F41.9 Anxiety disorder, unspecified; F32.A Depression, unspecified; I77.819 Aortic ectasia, unspecified site; L40.50 Arthropathic psoriasis, unspecified; M81.0 Age-related osteoporosis without current pathological fracture; R73.03 Prediabetes; E03.9 Hypothyroidism, unspecified
CPT/HCPCS: 00731; 01480; 36415; 43239; 64445; 70450; 73610; 73630; 76000; 76942; 80048; 83930; 83935; 84295; 84300; 84439; 84443; 85025; 85027; 85048; 88305; 93005; 97110; 97162; 97165; 97530; 97535; 99284; 99285; A9270; C1713; C1769; C1776; G0378; J0665; J0690; J1100; J1630; J2250; J2371; J2470; J2704; J3010; J3490; J7030; J7120; J7131

== ENCOUNTER 2025-08-03 10:52 | Outpatient (CLI) | payer MEDICARE, BC, SELFPAY | END 2025-08-03 10:53 | disposition home or self-care (01) | LOC: AMB 08-06 08:45 | PROVIDERS: PCP Family Medicine; Visit Provider Emergency Medicine Emergency Medical Services | DX: Z98.890 Other specified postprocedural states (principal); S92.342A Displaced fracture of fourth metatarsal bone, left foot, initial encounter for closed fracture | CPT/HCPCS: A0425; A0428 ==

== ENCOUNTER 2025-09-14 11:08 | Outpatient (CLI) | payer MEDICARE, BC, SELFPAY | END 2025-09-14 11:09 | disposition home or self-care (01) | LOC: NFLDREF 09-20 05:42 | PROVIDERS: PCP Family Medicine; Referring Provider Family Medicine; Visit Provider Internal Medicine Nephrology | DX: I12.9 Hypertensive chronic kidney disease with stage 1 through stage 4 chronic kidney disease, or unspecified chronic kidney disease (principal); N18.32 Chronic kidney disease, stage 3b; E78.5 Hyperlipidemia, unspecified | CPT/HCPCS: 80061; 80069; 82043; 82570; 82728; 83540; 83550; 83970; 84450; 84460; 84550 ==